=== PATIENT | male | born 1950 | race Caucasian/White ===

== ENCOUNTER → 2018-05-17 08:01 | Outpatient (CLI) | payer MEDICARE, OTHER, SELFPAY ==
[2018-05-17 09:25] LABS: BUN Creatinine Ratio 17.3 (6-22); Blood Urea Nitrogen 19 mg/dL (9-20); Calcium 8.9 mg/dL (8.4-10.2); Carbon Dioxide 28 mmol/L (22-32); Chloride 105 mmol/L (98-107); Cholesterol 164 mg/dL (140-199); Estimated Glomerular Filt Rate > 60.0 mL/min (>60); Glucose 91 mg/dL (80-110); HDL Cholesterol 41 mg/dL (40-60); HEMOLYSIS < 15 (0-50); LDL Cholesterol Calculated 104 mg/dL (<100); Potassium 4.4 mmol/L (3.4-5.1); Sodium 143 mmol/L (137-145); Triglycerides 96 mg/dL (35-150)
[2018-05-17 09:50] LABS: Prostate Specific Antigen Scrn 4.98 ng/mL (0.1-4.0)
[2018-05-21 14:45] LABS: PSA Free % 22 % (calc) (> 25); PSA, Total 5.4 ng/mL (< 4.1)
== END ==
PROVIDERS: PCP Student in an Organized Health Care Education/Training Program; Visit Provider Student in an Organized Health Care Education/Training Program
DX: I10 Essential (primary) hypertension (principal); R97.20 Elevated prostate specific antigen [PSA]; E78.00 Pure hypercholesterolemia, unspecified; E55.9 Vitamin D deficiency, unspecified
CPT/HCPCS: 36415; 80048; 80061; 82306; 84153; 84154; G0103

== ENCOUNTER → 2019-02-27 15:40 | Outpatient (CLI) | payer MEDICARE, OTHER, SELFPAY ==
--- NOTE | 2019-02-27 15:43 | DI.RAD.S_ITS ---
PROCEDURE: XR CHEST 2V INDICATIONS: cough for 2 weeks TECHNIQUE: 2 views of the chest were acquired. COMPARISON: [facility], , CHEST 2 VIEW, 03/22/2009, 14:03. FINDINGS: Surgical changes and devices: None. Lungs and pleura: No acute consolidation. Scattered subsegmental atelectasis and/or scarring. No pleural effusion. No pneumothorax. Mediastinum: Mediastinal contours are normal. Heart size is normal. Bones and chest wall: No suspicious bony abnormalities. Soft tissues appear unremarkable. IMPRESSION: No acute disease Dictated by: Rancho Desouza M.D. on 02/27/2019 at 16:26 Approved by: Rancho Desouza M.D. on 02/27/2019 at 16:27
== END ==
PROVIDERS: PCP Student in an Organized Health Care Education/Training Program; Visit Provider Hospitalist
DX: R05 Cough (principal)
CPT/HCPCS: 71046

== ENCOUNTER → 2019-07-16 11:22 | Outpatient (CLI) | payer MEDICARE, OTHER, SELFPAY ==
--- NOTE | 2019-07-16 11:24 | DI.RAD.S_ITS ---
PROCEDURE: XR HIP W PEL IF DONE LT 2V INDICATIONS: Left hip pain TECHNIQUE: 2 views of the hip were acquired. COMPARISON: None. FINDINGS: Bones: No fractures or dislocations. No suspicious bony lesions. The visualized pelvic ring appears intact. Mild left hip joint osteoarthritis, no trauma. Soft tissues: No suspicious soft tissue calcifications or masses. IMPRESSION: Mild left hip joint osteoarthritis without prior trauma found. Dictated by: Jack Heller M.D. on 07/16/2019 at 12:46 Approved by: Jack Heller M.D. on 07/16/2019 at 12:46
== END ==
PROVIDERS: PCP Student in an Organized Health Care Education/Training Program; Visit Provider Student in an Organized Health Care Education/Training Program
DX: M25.552 Pain in left hip (principal); M16.12 Unilateral primary osteoarthritis, left hip
CPT/HCPCS: 73502

== ENCOUNTER → 2020-09-16 11:05 | Outpatient (CLI) | payer MEDICARE, OTHER, SELFPAY ==
[2020-09-16 11:35] LABS: WBC Urine None Seen (0-5/HPF)
[2020-09-16 12:06] LABS: Appearance Urine UA CLEAR; Bilirubin Urine UA NEGATIVE (NEGATIVE); Color Urine UA YELLOW; Glucose Urine UA NEGATIVE (Negative); Ketones Urine UA NEGATIVE (NEGATIVE); Leukocyte Esterase Urine UA NEGATIVE (NEGATIVE); Nitrite Urine UA NEGATIVE (Negative); Occult Blood Urine UA TRACE-INTACT (Negative); Protein Urine UA NEGATIVE (Negative); Urobilinogen Urine UA 0.2 E.U./dL (0.2)
[2020-09-16 12:13] LABS: Add Manual Diff / Slide Review NO; Basophils Absolute Auto 0 /uL (0-100); Basophils Percent Auto 0.3 % (0-2); Eosinophils Absolute Auto 100 /uL (0-450); Eosinophils Percent Auto 1.2 % (2-4); Hematocrit 49.2 % (41-53); Hemoglobin 17.1 g/dL (13.5-17.5); Lymphocytes Absolute Auto 1600 /uL (1100-4500); Lymphocytes Percent Auto 16.7 % (25-40); Mean Corpuscular HGB Conc 34.7 % (30-36); Mean Corpuscular Volume 92.3 fL (80-100); Monocytes Absolute Auto 900 /uL (0-900); Monocytes Percent Auto 8.7 % (3-14); Neutrophils Absolute Auto 7200 /uL (1500-7000); Neutrophils Percent Auto 73.1 % (50-75); Platelet Count 165 X10^3/uL (150-400); Red Blood Cell Count 5.33 X10^6/uL (4.5-5.9); Red Cell Distribution Width 13.3 % (11.6-14.8); White Blood Cell Count 9.8 X10^3/uL (4.5-11.0)
[2020-09-16 12:18] LABS: Bacteria Urine Occasional (0-1); Culture Indicated Urine Cult Not Indicated; RBC Urine 0-1/HPF (0-5/HPF)
[2020-09-16 12:48] LABS: Alanine Aminotransferase 31 IU/L (<50); Albumin Globulin Ratio 1.4 (1.0-2.8); Alkaline Phosphatase 53 U/L (38-126); Aspartate Aminotransferase 24 IU/L (17-59); BUN Creatinine Ratio 18.6 (6-22); Bilirubin Total 0.8 mg/dL (0.2-1.3); Blood Urea Nitrogen 19 mg/dL (9-20); Calcium 9.6 mg/dL (8.4-10.2); Carbon Dioxide 27 mmol/L (22-32); Chloride 103 mmol/L (98-107); Estimated Glomerular Filt Rate > 60.0 mL/min (>60); Gamma Glutamyl Transpeptidase 36 U/L (15-73); Globulin 2.9 g/dL (1.7-4.1); Glucose 90 mg/dL (80-110); HEMOLYSIS < 15 (0-50); Lipase 108 U/L (23-300); Potassium 4.4 mmol/L (3.4-5.1); Sodium 139 mmol/L (137-145); Total Protein 6.9 g/dL (6.3-8.2)
[2020-09-16 13:19] LABS: Prostate Specific Antigen Scrn 4.56 ng/mL (0.1-4.0)
== END ==
PROVIDERS: PCP Student in an Organized Health Care Education/Training Program; Referring Provider Student in an Organized Health Care Education/Training Program; Visit Provider Student in an Organized Health Care Education/Training Program
DX: Z12.5 Encounter for screening for malignant neoplasm of prostate (principal); R10.31 Right lower quadrant pain
CPT/HCPCS: 36415; 80053; 81001; 82977; 83690; 85025; G0103

== ENCOUNTER → 2020-09-16 13:07 | Outpatient (CLI) | payer MEDICARE, OTHER, SELFPAY ==
--- NOTE | 2020-09-16 13:11 | DI.CT.S_ITS ---
PROCEDURE: CT ABDOMEN PELVIS WO CON INDICATIONS: RLQ abdominal pain TECHNIQUE: Noncontrast 5 mm thick sections acquired from the diaphragms to the symphysis. 5 mm coronal and sagittal reformats were then performed. For radiation dose reduction, the following was used: automated exposure control, adjustment of mA and/or kV according to patient size. COMPARISON: None. FINDINGS: Image quality: Excellent. ABDOMEN: Lung bases: Lung bases are clear. Heart size is normal. Mild coronary artery calcifications. Minimal pericardial effusion. Solid organs: Liver is normal in size. A benign-appearing hepatic cyst is noted. Gallbladder contains 2 gallstones. No gallbladder wall thickening identified. Pancreas is normal in contours. Spleen is normal in size. No adrenal nodules. Kidneys are normal in size, without hydronephrosis or nephrolithiasis. Peritoneum and bowel: Dilated fluid-filled appendix with inflammatory change in the adjacent fat consistent with acute appendicitis. No free air or free fluid or abscess cavity. Unenhanced bowel loops otherwise demonstrate normal wall thickness and caliber. No free fluid or air. Nodes and vessels: No retroperitoneal or mesenteric adenopathy by size criteria. Aorta and inferior vena cava are normal in caliber. Miscellaneous: No ventral hernias. PELVIS: Genitourinary: Bladder wall thickness is normal. Miscellaneous: No inguinal hernias or adenopathy. Bones: No suspicious bony lesions. No vertebral body compression fractures. IMPRESSION: 1. Acute appendicitis, likely nonruptured. 2. Enlarged prostate. 3. Small left inguinal hernia containing fat. Dictated by: Fernandez Hahn M.D. on 09/16/2020 at 13:22 Approved by: Fernandez Hahn M.D. on 09/16/2020 at 13:25
== END ==
PROVIDERS: PCP Student in an Organized Health Care Education/Training Program; Referring Provider Student in an Organized Health Care Education/Training Program; Visit Provider Student in an Organized Health Care Education/Training Program
DX: R10.31 Right lower quadrant pain (principal); K35.80 Unspecified acute appendicitis; N40.0 Benign prostatic hyperplasia without lower urinary tract symptoms; K40.30 Unilateral inguinal hernia, with obstruction, without gangrene, not specified as recurrent; Z12.5 Encounter for screening for malignant neoplasm of prostate
CPT/HCPCS: 36415; 74176; 80053; 81001; 82977; 83690; 85025; G0103

== ENCOUNTER 2020-09-16 22:03 | Inpatient (IN) | payer MEDICARE, OTHER, SELFPAY ==
[2020-09-16 22:11] VITALS: BP 200/102; PULSE 60; RESP 18; TEMP 36.8; O2SAT 99; BMI 32.1
[2020-09-16 22:30] VITALS: BP 195/124
[2020-09-16 22:31] VITALS: PULSE 88; O2SAT 97
[2020-09-16 23:00] VITALS: BP 170/105; PULSE 84; O2SAT 95
[2020-09-16 23:00] LABS: INR 1.1 (0.9-1.3); Prothrombin Time 12.4 SECONDS (10.1-12.7)
[2020-09-16 23:03] LABS: Alanine Aminotransferase 31 IU/L (<50); Albumin 4.3 g/dL (3.5-5.0); Albumin Globulin Ratio 1.3 (1.0-2.8); Alkaline Phosphatase 52 U/L (38-126); Aspartate Aminotransferase 27 IU/L (17-59); BUN Creatinine Ratio 23.1 (6-22); Bilirubin Total 0.6 mg/dL (0.2-1.3); Blood Urea Nitrogen 24 mg/dL (9-20); Calcium 9.3 mg/dL (8.4-10.2); Carbon Dioxide 24 mmol/L (22-32); Chloride 105 mmol/L (98-107); Estimated Glomerular Filt Rate > 60.0 mL/min (>60); Globulin 3.2 g/dL (1.7-4.1); Glucose 108 mg/dL (80-110); HEMOLYSIS 25 (0-50); Lipase 99 U/L (23-300); PTT Partial Thromboplastin Tim 34 SECONDS (26.4-36.2); Sodium 139 mmol/L (137-145); Total Protein 7.5 g/dL (6.3-8.2)
[2020-09-16 23:04] VITALS: BP 168/95; PULSE 86; O2SAT 95
[2020-09-16 23:07] LABS: Add Manual Diff / Slide Review NO; Basophils Absolute Auto 100 /uL (0-100); Basophils Percent Auto 0.9 % (0-2); Eosinophils Absolute Auto 200 /uL (0-450); Eosinophils Percent Auto 2.6 % (2-4); Hematocrit 48.2 % (41-53); Hemoglobin 16.8 g/dL (13.5-17.5); Lymphocytes Absolute Auto 2400 /uL (1100-4500); Lymphocytes Percent Auto 27.7 % (25-40); Mean Corpuscular HGB Conc 34.9 % (30-36); Mean Corpuscular Hemoglobin 32.1 PG (26-34); Monocytes Absolute Auto 800 /uL (0-900); Monocytes Percent Auto 9.4 % (3-14); Neutrophils Absolute Auto 5200 /uL (1500-7000); Neutrophils Percent Auto 59.4 % (50-75); Platelet Count 155 X10^3/uL (150-400); Red Blood Cell Count 5.24 X10^6/uL (4.5-5.9); Red Cell Distribution Width 13.2 % (11.6-14.8); White Blood Cell Count 8.7 X10^3/uL (4.5-11.0)
[2020-09-16 23:30] VITALS: BP 166/96; PULSE 59; O2SAT 95
[2020-09-17] VITALS (26 sets, daily range): BP systolic 93–165; BP diastolic 41–102; PULSE 56–94; RESP 12–20; TEMP 36.2–37; O2SAT 92–98; BMI 31.6
--- NOTE | 2020-09-17 | PATH_ITS ---
[facility] Accession Number: [id number] . 01 Material submitted: . appendix - APPENDIX . 02 Diagnosis: Appendix, Appendectomy: Acute appendicitis and serositis. [facility] 09/23/2020 0931 Local . 02 Electronically signed: . Yaritza Matthew MD, Pathologist NPI- [id number] . 01 Gross description: . The specimen is received in formalin, labeled appendix and consists of a 5.5 cm in length by 0.8 cm in diameter vermiform appendix with detached villarreal-yellow lobulated mesoappendix measuring 4.5 x 3.5 x 2.5 cm in aggregate. The serosa is pink-purple, focally disrupted with purulent exudate and fibrinous adhesions. Sectioning reveals a villarreal mucosa and a lumen measuring 0.3 cm in diameter. [employer] Attaching Machine Tender sections are submitted to include the margin (blue), bisected tip and central cross-sections in cassette A1. (EA:[id number]) /V 09/21/2020 1549 Local . 02 Pathologist provided ICD-10: K35.80 . 02 CPT . 786343 Performed at: 01 [facility] [address], [place], [place] [id number] MD Tariq Leavitt MD Phone: [phone] Performed at: 02 [facility] [address] [place], [place] [id number] MD Theresa Lemus MD Phone: [phone]
--- NOTE | 2020-09-17 00:05 | ED.ABDPAIN ---
HPI - Abdominal Pain General Chief Complaint: Abdominal Pain Stated Complaint: sent for apendicitis Time Seen by Provider: 09/16/20 23:23 Source: patient Mode of arrival: Ambulatory Limitations: no limitations History of Present Illness HPI narrative: This is a pleasant 70-year-old male who comes to the emergency department for concern for appendicitis. Patient had abdominal pain that started Sunday evening became quite severe into Sunday. On has been improving since then. Patient states he never had fevers. Denies any nausea, vomiting, no diarrhea constipation. He states he has been stooling regularly but no color changes. No urinary symptoms. Patient states he saw his primary care ordered labs as well as a CT scan. This was obtained on 09/16/2020. Patient was contacted about the results this evening and noted that it showed an appendicitis. Patient states his symptoms have actually been significantly better. He continues to be afebrile without any additional symptoms. He has been taking Tylenol regularly. He denies any other medical issues. He has had hernia repairs in the past. Denies any allergies to medications. Related Data Home Medications Medication Instructions Recorded Confirmed No Known Home Medications 09/17/20 09/17/20 Allergies Allergy/AdvReac Type Severity Reaction Status Date / Time No Known Drug Allergies Allergy Verified 09/16/20 10:51 Review of Systems Review of Systems ROS Unobtainable: All systems reviewed & are unremarkable except as noted in HPI and below Patient History Medical History (Updated 09/17/20 @ 01:40 by Kristan Gonsales DO) BPH (benign prostatic hyperplasia) (Unknown) Chickenpox Elevated PSA (Unknown) Erectile dysfunction (Unknown) Measles Surgical History History of dental surgery (Unknown) Hx of hernia repair (Unknown) Family History Father Heart disease Grandfather Heart disease Grandmother Heart disease Social History household members: spouse Smoking Status: Never smoker alcohol intake: never substance use type: does not use Smoking Status: Never smoker Exam Narrative Exam Narrative: GENERAL: Alert and oriented x three, well-nourished male in mild distress. HEENT: Head normocephalic, atraumatic, EOMI, pupils reactive, face symmetric, moist mucous membranes NECK: Supple, full range of motion CARDIOVASCULAR: Regular rate and rhythm without murmurs, rubs or gallops. RESPIRATORY: Breath sounds equal bilaterally, no wheezes rales or rhonchi. ABDOMEN: Soft, very mild right lower quadrant tenderness. Distended habitus. Normoactive bowel sounds all 4 quadrants. No guarding or rebound, rigidity, no mass. : No CVA tenderness EXTREMITIES: Normal range of motion, no clubbing or edema. Neurovascularly intact NEUROLOGICAL: Cranial nerves II through XII grossly intact. Moving all extremities SKIN: Warm, dry, no petechiae, no rashes or lesions. 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 Sigala, reviewed patient's history and CT. He states with his improvement of symptoms he would recommend repeat CT to evaluate for rupture. Time: 00:21 Consultation #2: Repeat CT imaging reviewed. No perforation on repeat imaging. Plan for Zosyn IV antibiotics. Dr. Sigala asks for patient to admit to surgery and will see this morning and discuss with patient about surgery vs. antibiotics. Time: 01:37 Vital Signs Vital signs: Vital Signs - 8 hr 09/16/20 22:11 09/16/20 22:30 09/16/20 22:31 Temperature 98.3 F Pulse Rate 60 88 Respiratory Rate 18 Blood Pressure 200/102 H 195/124 H Pulse Oximetry 99 97 09/16/20 23:00 09/16/20 23:04 09/16/20 23:30 Temperature Pulse Rate 84 86 59 L Respiratory Rate Blood Pressure 170/105 H 168/95 H 166/96 H Pulse Oximetry 95 95 95 09/17/20 00:00 09/17/20 00:51 09/17/20 01:00 Temperature Pulse Rate 91 H 84 Respiratory Rate Blood Pressure 152/89 H Pulse Oximetry 95 97 94 09/17/20 01:30 Temperature Pulse Rate 86 Respiratory Rate Blood Pressure Pulse Oximetry 95 MDM - Abdominal Pain Lab Data Attestation: I reviewed the patient's lab results. Result diagrams: 09/16/20 22:40 09/16/20 22:40 Labs: Lab Results 09/16/20 09/16/20 09/16/20 Range/Units 22:40 22:40 22:40 WBC 8.7 (4.5-11.0) X10^3/uL RBC 5.24 (4.5-5.9) X10^6/uL Hgb 16.8 (13.5-17.5) g/dL Hct 48.2 (41-53) % MCV 92.0 (80-100) fL MCH 32.1 (26-34) PG MCHC 34.9 (30-36) % RDW 13.2 (11.6-14.8) % Plt Count 155 (150-400) X10^3/uL Neut % (Auto) 59.4 (50-75) % Lymph % (Auto) 27.7 (25-40) % [place] % (Auto) 9.4 (3-14) % Eos % (Auto) 2.6 (2-4) % Baso % (Auto) 0.9 (0-2) % Neut # (Auto) 5200 (1190-1106) /uL Lymph # (Auto) 2400 (5173-9792) /uL [place] # (Auto) 800 (0-900) /uL Eos # (Auto) 200 (0-450) /uL Baso # (Auto) 100 (0-100) /uL PT 12.4 (10.1-12.7) SECONDS INR 1.1 (0.9-1.3) APTT 34 (26.4-36.2) SECONDS Sodium 139 (137-145) mmol/L Potassium 4.0 (3.4-5.1) mmol/L Chloride 105 (98-107) mmol/L Carbon Dioxide 24 (22-32) mmol/L BUN 24 H (9-20) mg/dL Creatinine 1.04 (0.66-1.25) mg/dL Estimated GFR > 60.0 (>60) mL/min BUN/Creatinine Ratio 23.1 H (6-22) Glucose 108 (80-110) mg/dL Calcium 9.3 (8.4-10.2) mg/dL Total Bilirubin 0.6 (0.2-1.3) mg/dL AST 27 (17-59) IU/L ALT 31 (<50) IU/L Alkaline Phosphatase 52 (38-126) U/L Total Protein 7.5 (6.3-8.2) g/dL Albumin 4.3 (3.5-5.0) g/dL Globulin 3.2 (1.7-4.1) g/dL Albumin/Globulin Ratio 1.3 (1.0-2.8) Lipase 99 (23-300) U/L SARS-CoV-2 (PCR) (Negative) 09/16/20 Range/Units 22:40 WBC (4.5-11.0) X10^3/uL RBC (4.5-5.9) X10^6/uL Hgb (13.5-17.5) g/dL Hct (41-53) % MCV (80-100) fL MCH (26-34) PG MCHC (30-36) % RDW (11.6-14.8) % Plt Count (150-400) X10^3/uL Neut % (Auto) (50-75) % Lymph % (Auto) (25-40) % [place] % (Auto) (3-14) % Eos % (Auto) (2-4) % Baso % (Auto) (0-2) % Neut # (Auto) (5751-1049) /uL Lymph # (Auto) (6549-1708) /uL [place] # (Auto) (0-900) /uL Eos # (Auto) (0-450) /uL Baso # (Auto) (0-100) /uL PT (10.1-12.7) SECONDS INR (0.9-1.3) APTT (26.4-36.2) SECONDS Sodium (137-145) mmol/L Potassium (3.4-5.1) mmol/L Chloride (98-107) mmol/L Carbon Dioxide (22-32) mmol/L BUN (9-20) mg/dL Creatinine (0.66-1.25) mg/dL Estimated GFR (>60) mL/min BUN/Creatinine Ratio (6-22) Glucose (80-110) mg/dL Calcium (8.4-10.2) mg/dL Total Bilirubin (0.2-1.3) mg/dL AST (17-59) IU/L ALT (<50) IU/L Alkaline Phosphatase (38-126) U/L Total Protein (6.3-8.2) g/dL Albumin (3.5-5.0) g/dL Globulin (1.7-4.1) g/dL Albumin/Globulin Ratio (1.0-2.8) Lipase (23-300) U/L SARS-CoV-2 (PCR) Negative (Negative) Imaging Data CT scan - abdomen/pelvis: Radiologist's Impression: [address] [id number] Scan ReportSigned Patient: Franky Maharaj SMR#: [id number]: 1950Acct:[id number]/Sex: 70 / MDate of Service: 09/16/20Loc: CTAccession Number: [id number] Procedure: CT abdomen pelvis wo con Ordering Provider: Franky Liu MD PROCEDURE: CT ABDOMEN PELVIS WO CON INDICATIONS: RLQ abdominal pain TECHNIQUE: Noncontrast 5 mm thick sections acquired from the diaphragms to the symphysis. 5 mm coronal and sagittal reformats were then performed. For radiation dose reduction, the following was used: automated exposure control, adjustment of mA and/or kV according to patient size. COMPARISON: None. FINDINGS: Image quality: Excellent. ABDOMEN: Lung bases: Lung bases are clear. Heart size is normal. Mild coronary artery calcifications. Minimal pericardial effusion. Solid organs: Liver is normal in size. A benign-appearing hepatic cyst is noted. Gallbladder contains 2 gallstones. No gallbladder wall thickening identified. Pancreas is normal in contours. Spleen is normal in size. No adrenal nodules. Kidneys are normal in size, without hydronephrosis or nephrolithiasis. Peritoneum and bowel: Dilated fluid-filled appendix with inflammatory change in the adjacent fat consistent with acute appendicitis. No free air or free fluid or abscess cavity. Unenhanced bowel loops otherwise demonstrate normal wall thickness and caliber. No free fluid or air. Nodes and vessels: No retroperitoneal or mesenteric adenopathy by size criteria. Aorta and inferior vena cava are normal in caliber. Miscellaneous: No ventral hernias. PELVIS: Genitourinary: Bladder wall thickness is normal. Miscellaneous: No inguinal hernias or adenopathy. Bones: No suspicious bony lesions. No vertebral body compression fractures. IMPRESSION: 1. Acute appendicitis, likely nonruptured. 2. Enlarged prostate. 3. Small left inguinal hernia containing fat. Dictated by: Fernandez Hahn M.D. on 09/16/2020 at 13:22 Approved by: Fernandez Hahn M.D. on 09/16/2020 at 13:25 MDM Narrative Medical decision making narrative: 70-year-old male with right lower quadrant pain that was quite severe, labs are reassuring, patient is imaging from earlier today ordered as outpatient was positive for appendicitis as well as a small left inguinal hernia that had a small amount of fat. Patient states his symptoms have actually improved. Discussed with General surgery and they request CT to be repeated as there is potential for a ruptured appy. This was repeated does not show any rupture. Patient continues to state that he feels significantly better. Patient was admitted for IV antibiotics and evaluation this morning by Dr. Sigala for decision to either perform surgery or treat with antibiotics after evaluation. Patient was quite hypertensive initially but improved significantly in the department. Discharge Plan Departure Patient Disposition: Admitted as Observation Clinical Impression: Hernia, inguinal, left Appendicitis Qualifiers: Appendicitis type: acute appendicitis Appendicitis gangrene presence: without gangrene Appendicitis perforation presence: without perforation Appendicitis abscess presence: without abscess Admit Date/Time: 09/17/20 01:49 Admit Provider: Robert Sigala
--- NOTE | 2020-09-17 00:20 | DI.CT.S_ITS ---
PROCEDURE: CT ABDOMEN PELVIS W CON INDICATIONS: abdominal pain,appendictis TECHNIQUE: After the administration of intravenous contrast, 5 mm thick sections acquired from the diaphragm to the symphysis. 5 mm coronal and sagittal reformats were acquired. For radiation dose reduction, the following was used: automated exposure control, adjustment of mA and/or kV according to patient size. COMPARISON: [facility], CT, CT ABDOMEN PELVIS WO CON, 09/16/2020, 13:14. FINDINGS: Image quality: Excellent. ABDOMEN: Lung bases: Right lower lobe pulmonary nodule measuring 0.6 cm, (3/5). No pleural effusion. Minimal atelectasis in the lingula. Heart size is normal. Mild pericardial fluid. Question of small hiatal hernia. Solid organs: Liver is normal in size. Well-circumscribed benign cyst in the right lobe of the liver. Gallbladder is not distended. There are small layering gallstones. Biliary system is non dilated. Pancreas enhances normally. Spleen is normal in size and enhancement. No adrenal nodules. Kidneys demonstrate normal size and enhancement, without hydronephrosis. Peritoneum and bowel: No small bowel obstruction. A few scattered colonic diverticuli. No pneumoperitoneum. No ascites. The appendix is dilated measuring 1.1 cm, (4/39). There is moderate fat stranding surrounding the appendix. No appendiculolith is seen. No periappendiceal free air. No fluid collection. No significant interval change of the appendix is appreciated compared to CT yesterday afternoon. Nodes and vessels: No retroperitoneal or mesenteric adenopathy by size criteria. Aorta and inferior vena cava are normal in size. Moderate calcified plaque. Miscellaneous: Tiny fat containing periumbilical hernia. PELVIS: Genitourinary: Bladder wall thickness is normal. Prostatomegaly. Miscellaneous: Question of fat containing left inguinal hernia. No adenopathy. Bones: No suspicious bony lesions. No vertebral body compression fractures. IMPRESSION: 1. Acute appendicitis. No fluid collection. Overall findings similar to recent CT. 2. No bowel obstruction. 3. Right lower lobe pulmonary nodule measuring 0.6 cm. -Recommend follow-up CT of the chest in 6-12 months depending on patient's risk factors. 4. Prostatomegaly. Minor discrepancy with the overnight preliminary interpretation. -Small pulmonary nodule noted. Comment: Findings were discussed with Odalis Smith CNA at the time of dictation. Dictated by: Alexander Samson M.D. on 09/17/2020 at 8:31 Approved by: Alexander Samson M.D. on 09/17/2020 at 8:45
[2020-09-17] MEDS: SODIUM CHLORIDE 0.9% 1,000 ML 150 ML IV (01:12)
[2020-09-17] MEDS: PIPERACILLIN-TAZO 3.375 GM/50 ML FROZ.PIGGY IV ×4 (01:51→18:58)
[2020-09-17 02:50] LABS: COVID19 - ADMIT (NP swab/PCR) Negative (Negative)
--- NOTE | 2020-09-17 07:32 | PM.HP.1 ---
History of Present Illness History of Present Illness Date Patient Seen: 09/17/20 Time Patient Seen: 07:33 Chief complaint: sent for apendicitis Narrative: 70-year-old male history of obesity admitted for acute appendicitis. He is having some vague abdominal pain over the last 2-3 days he underwent a CT abdomen pelvis yesterday which demonstrates acute appendicitis was no free fluid or abscess. At arrival afebrile vital signs within normal limits, WBC 9, hematocrit 48 creatinine 1.04. Prior open bilateral inguinal hernia otherwise no other abdominal surgery. Patient History Medical History (Updated 09/17/20 @ 01:40 by Kristan Gonsales DO) BPH (benign prostatic hyperplasia) (Unknown) Chickenpox Elevated PSA (Unknown) Erectile dysfunction (Unknown) Measles Surgical History History of dental surgery (Unknown) Hx of hernia repair (Unknown) Family & Social History Family History Father Heart disease Grandfather Heart disease Grandmother Heart disease Social History: household members spouse Prior Living Arrangements House Safety & Behavioral: Feels Safe in Current Yes Environment Been Physically Hurt or No Threatened By a Person Suicidal Ideation Description None Tobacco & Substance use: Smoking Status Never smoker alcohol intake never Substance Use Type does not use Meds Home Medications and Allergies Home Medications Medication Instructions Recorded Confirmed Type No Known Home Medications 09/17/20 09/17/20 History Allergies Allergy/AdvReac Type Severity Reaction Status Date / Time No Known Drug Allergies Allergy Verified 09/16/20 10:51 Review of Systems Review of Systems ROS: Yes All systems reviewed with the patient and are negative except as otherwise documented Exam Vital Signs (past 8 hours): - 09/17/20 00:00 09/17/20 00:51 09/17/20 01:00 Temperature Pulse Rate 91 H 84 Respiratory Rate Blood Pressure 152/89 H Pulse Oximetry 95 97 94 09/17/20 01:30 09/17/20 01:54 09/17/20 02:10 Temperature 97.8 F Pulse Rate 86 81 58 L Respiratory Rate 16 Blood Pressure 162/88 H 142/90 H Pulse Oximetry 95 96 09/17/20 05:23 Temperature 97.8 F Pulse Rate 58 L Respiratory Rate 16 Blood Pressure 142/90 H Pulse Oximetry 97 Oxygen Delivery Method Room Air Narrative Exam Narrative: General-no acute distress, adult male HEENT-moist mucous membranes, no scleral icterus Neck-supple, no lymphadenopathy Chest- non labored respirations, clear to auscultation bilaterally Cardiac-regular rate no peripheral edema Abdomen-focal peritonitis right lower quadrant Extremities-warm, well perfused Neurological-alert and oriented, no focal deficits Objective Labs Result Diagrams: 09/16/20 22:40 09/16/20 22:40 Labs: Laboratory Results - last 24 hr 09/16/20 09/16/20 09/16/20 22:40 22:40 22:40 WBC 8.7 RBC 5.24 Hgb 16.8 Hct 48.2 MCV 92.0 MCH 32.1 MCHC 34.9 RDW 13.2 Plt Count 155 Neut % (Auto) 59.4 Lymph % (Auto) 27.7 [place] % (Auto) 9.4 Eos % (Auto) 2.6 Baso % (Auto) 0.9 Neut # (Auto) 5200 Lymph # (Auto) 2400 [place] # (Auto) 800 Eos # (Auto) 200 Baso # (Auto) 100 PT 12.4 INR 1.1 APTT 34 Sodium 139 Potassium 4.0 Chloride 105 Carbon Dioxide 24 BUN 24 H Creatinine 1.04 Estimated GFR > 60.0 BUN/Creatinine Ratio 23.1 H Glucose 108 Calcium 9.3 Total Bilirubin 0.6 AST 27 ALT 31 Alkaline Phosphatase 52 Total Protein 7.5 Albumin 4.3 Globulin 3.2 Albumin/Globulin Ratio 1.3 Lipase 99 SARS-CoV-2 (PCR) 09/16/20 22:40 WBC RBC Hgb Hct MCV MCH MCHC RDW Plt Count Neut % (Auto) Lymph % (Auto) [place] % (Auto) Eos % (Auto) Baso % (Auto) Neut # (Auto) Lymph # (Auto) [place] # (Auto) Eos # (Auto) Baso # (Auto) PT INR APTT Sodium Potassium Chloride Carbon Dioxide BUN Creatinine Estimated GFR BUN/Creatinine Ratio Glucose Calcium Total Bilirubin AST ALT Alkaline Phosphatase Total Protein Albumin Globulin Albumin/Globulin Ratio Lipase SARS-CoV-2 (PCR) Negative Assessment & Plan Assessment and plan (1) Appendicitis: Qualifiers: Appendicitis abscess presence: without abscess Appendicitis gangrene presence: without gangrene Appendicitis perforation presence: without perforation Appendicitis type: acute appendicitis Status: Acute Assessment & Plan narrative: 70-year-old male with acute appendicitis. I reviewed his CT abdomen pelvis demonstrates acute appendicitis there is no abscess or significant free fluid. Suspect he has relatively early non perforated appendicitis. We discussed both conservative management with antibiotics and surgical intervention. I recommended that we proceed with a laparoscopic appendectomy. Technical details of the procedure were discussed with patient. Operative risks including bleeding, infection, damage to surrounding structures, hernia formation, were discussed. His questions have been answered he is in agreement with this plan. Quality VTE Deep Vein Thrombosis/Pulmonary Embolism Present on Admission: No
[2020-09-17] MEDS: LACTATED RINGERS 1,000 ML 42 ML IV ×2 (08:14→09:43)
[2020-09-17] MEDS: ACETAMINOPHEN 325 MG TABLET 975 MG PO (08:26)
--- NOTE | 2020-09-17 08:46 | SUR.OPER ---
Supine on padded OR bed, head on pillow, arm padded and tucked at side, legs uncrossed, safety belt at thigh, tape over blanket over lower legs .
[2020-09-17] MEDS: BUPIVACAINE 0.25% (PF) VIAL 30 ML INJ (08:56)
--- NOTE | 2020-09-17 09:41 | P.OP_ITS ---
Operative Date/Time/Diagnoses Date of procedure: 09/17/20 Time of procedure: 09:41 Pre-op diagnosis: Acute appendicitis Post-op diagnosis: other (Perforated appendicitis) Procedure & Clinicians Procedure: Laparoscopic appendectomy Same procedure as scheduled: Yes Indications: 70-year-old male several days of abdominal pain CT demonstrates ac vladimir appendicitis without abscess or free fluid Surgeon: Robert Sigala Anesthesia Type: General Operative Notes Findings: Tip of the appendix is necrotic with associated abscess Estimated Blood Loss (mL): 20 Procedure in detail: Patient was brought to the operating room placed supine on the table. Bilateral lower extremity compression devices were applied. Anesthesia was induced and they intubated with an endotracheal tube. They received 3.375 g of Zosyn prior to skin incision. The left arm was tucked and appropriately padded. They were prepped and draped in sterile fashion. Time-out was performed. An infraumbilical incision was made the umbilical stalk was grasped and elevated and incision was made and the abdomen was entered atraumatically. A 12 mm balloon trocar was then placed through the incision and pneumoperitoneum of 14 mm Hg was established. The scope was then inserted and the abdomen inspected, there was no evidence of injury upon entry. Two 5 mm ports were placed under direct visualization, one in the left lower quadrant and second in the lower midline. A thorough laparoscopic evaluation was performed inspecting all four quadrants. The patient was then tilted right side up. The small bowel was then swept to the upper aspect of the abdomen. The tenie were followed to the base of the cecum where the appendix was identified. The appendix had healthy base but the tip of the appendix was with in an abscess cavity of approximately 2-3 cm. Once the abscess cavity was debrided the tip of the appendix was visualized and the necrotic. The mesentery to the appendix was divided using the LigaSure. The appendix was amputated flush at its base with a staple load blue. The abdomen was copiously irrigated with sterile saline. A 19 [place] Jesus drain was placed into the right lower quadrant and brought out through the left side of the abdomen. The specimen was retrieved using a endoscopic retrieval bad through the 10 mm infra-umbilical port. The right paracolic gutter and the pouch of Damion were irrigated The 5 mm ports were then removed under direct visualization. The umbilical fascial incision was closed with 0 Vicryl in a figure-eight fashion. The skin wounds were irrigated and closed with 4-0 Monocryl followed by the application of Dermabond. Sponge instrument count at the end of the operation was correct. The patient tolerated procedure well was extubated and transferred to the postoperative care unit in stable condition. Post-operative Condition: stable Disposition: Acute Care
[2020-09-17] MEDS: OXYCODONE IR 5 MG TABLET PO (10:37)
--- NOTE | 2020-09-17 11:26 | CM.DANOTE ---
Discharge Planning/Care Management DCP: assessment: case received, EMR reviewed, discussed in Team Rounds. Pt is a 70 year old male who admitted early this morning to care of [facility]: Dr. Danish Sigala PCP: Franky Liu Payer: Medicare and [facility] Pt dx with appendicitis and was taken to surgery this morning for treatment of same. Surgery: Laproscopic appendecomy with post op dx of perforated appendicitis. Admission status: in review per UR TERRI Potter. Will be checking in with pt either later today or tomorrow to follow for any d/c needs that may arise. CM Discharge Assessment Start: 09/17/20 11:25 Freq: Status: Active Protocol: Document 09/17/20 11:26 ITV (Rec: 09/17/20 11:26 ITV [id number]) Discharge Planning Assessment Advance Directives? No History Provided By Medical Record Prior Living Arrangements House Household Members spouse Is patient alert and oriented? Yes
[2020-09-17] MEDS: LACTATED RINGERS 1,000 ML 120 ML IV (11:30)
[2020-09-17] MEDS: ACETAMINOPHEN 325 MG TABLET 650 MG PO ×2 (12:45→17:47)
[2020-09-17] MEDS: KETOROLAC 30 MG/ML VIAL IV ×2 (12:47→17:48)
--- NOTE | 2020-09-17 16:13 | PC.NURSE ---
Pt A&OX3, this a.m. denies complaints. Transported to OR at 0820 a.m. Returned to room 208 at 1100. VSS,afebrile. LR at 125ml. Tolerating clear liquids w/o nausea /vomitting. Voiding small amount. Denies abdominal pain, denies passing gas. Abdominal slightly tender, hypoactive BS. Jesus drain with 25cc serosanguineous output. Lap sites ANGELICA, CDI.
--- NOTE | 2020-09-17 19:01 | PC.NURSE ---
Addendum entered by Jennie Rodríguez R.N. 09/17/20 23:12: Pt states abdominal discomfort improving. States is voiding often small amounts but is optimistic will be able to entirely empty bladder. Informed pt will need to resume iv fluids in the near future as ordered by . Informed pt catheter is ordered by surgeon youth probation officer if pt should change mind and become more uncomfortable. Pt verbalizes understanding. Addendum entered by Jennie Rodríguez R.N. 09/17/20 22:40: Pt requests to have iv fluids stopped and disconnected so can have freedom to move in and out of bathroom to toilet from recliner. Pt is steady on feet. IV fluids stopped per pt request. Flomax administered as per Dr. Ramirez. Addendum entered by Jennie Rodríguez R.N. 09/17/20 21:43: Pt remains up in recliner but reports to this teletypewriter operator, not doing good. States is up to bathroom to void with greater frequency, every 15 minutes. States urgency and frequency and very little output. Pt was returned to bed and bladder scanned for 607 cc's. Discussion with pt re options for treating this situation. Discussion with pt re placing catheter to drain bladder. Pt further states this inability to empty bladder has happened on several other occasions and resolves on its own and pt prefers this route. Phone call to Dr. Ramirez to discuss. Order for nunez catheter obtained and MD aware pt currently declines this but may change mind as time progresses. Orders also per Dr. Ramirez for flomax now. Pt informed. Original Note: Pt requests assistance to toilet frequently in bathroom. Denies any urinary difficulty as baseline. Voiding small amounts clear, yellow urine frequently. Bladder scanned for 192 cc's. Pt denies passage of flatus. Abdomen is distended with hypoactive bowel tones. Clear liquids without nausea. New iv site established as pt has firmness at right forearm iv site as well as pain with toradol iv push. Jesus drain compressed and draining. BL calf scd's in place when in bed. Up to recliner for change in position. Denies pain to abdomen. Dressing to Jesus drain site left abdomen replaced with t-sponge and silk tape.
[2020-09-17] MEDS: TAMSULOSIN 0.4 MG CAPSULE PO (22:10)
[2020-09-18] VITALS (11 sets, daily range): BP systolic 120–144; BP diastolic 70–98; PULSE 56–87; RESP 16–20; TEMP 36.6–36.9; O2SAT 94–98
[2020-09-18] MEDS: ACETAMINOPHEN 325 MG TABLET 650 MG PO ×5 (00:01→23:43)
[2020-09-18] MEDS: KETOROLAC 30 MG/ML VIAL IV ×5 (00:01→23:42)
[2020-09-18] MEDS: PIPERACILLIN-TAZO 3.375 GM/50 ML FROZ.PIGGY IV ×4 (01:53→20:12)
[2020-09-18] MEDS: TAMSULOSIN 0.4 MG CAPSULE PO (08:11)
[2020-09-18] MEDS: LACTATED RINGERS 1,000 ML 120 ML IV (11:26)
--- NOTE | 2020-09-18 12:00 | PM.PNPO.1 ---
Subjective Subjective Date Patient Seen: 09/18/20 Time Patient Seen: 12:00 Interval history: The patient's pain is controlled. He has had no flatus or bowel movement. He took about half of the breakfast offered him. No vomiting. He was unable to void and a Galaviz was ultimately placed. Exam Vital Signs (past 8 hours): - 09/18/20 08:00 09/18/20 08:15 Temperature 97.8 F Pulse Rate 77 Respiratory Rate 16 Blood Pressure 140/74 Pulse Oximetry 95 95 Oxygen Delivery Method Room Air Oxygen Flow Rate 0 Narrative Exam Narrative: Cooperative in no distress. Lungs clear. Fair effort. Breath sounds heard into the bases. Heart regular rate and rhythm without murmur gallop. Abdomen looks distended but is soft. No cellulitis. Wounds intact. Drainage is serosanguineous. Not cloudy.(patient states that his present appearance is his normal size but he looks much larger than he should be.) Objective Labs Result Diagrams: 09/16/20 22:40 09/16/20 22:40 [facility] Medical History (Updated 09/17/20 @ 01:40 by Kristan Gonsales DO) BPH (benign prostatic hyperplasia) (Unknown) Chickenpox Elevated PSA (Unknown) Erectile dysfunction (Unknown) Measles Surgical History History of dental surgery (Unknown) Hx of hernia repair (Unknown) Family History Father Heart disease Grandfather Heart disease Grandmother Heart disease Social History household members: spouse Smoking Status: Never smoker alcohol intake: never substance use type: does not use Assessment & Plan Post-op Postoperative Procedures: Procedures Operation Date: 09/17/20 08:45 Actual Procedures Side Surgeon p Laparoscopic Appendectomy Not Applicable Robert Sigala MD Postoperative day: 1 Postoperative status narrative: Patient with a ruptured appendix with acute urinary retention. He was unable to void and a Galaviz was ultimately placed. Review of his CT scan shows that he has a very large prostate projecting into his urinary bladder. Question was raised by the patient regarding the presence of a recurrent left inguinal hernia. CT scan reviewed. There may be fat within a recurring hernia but I would be hesitant based on the CT scan unless physical exam demonstrated a recurrence because sometimes the appearance after hernia repair can be misleading. I did not examine him today for recurrence hernia. This can be done as an outpatient. Postoperative plan narrative: Will not advance his diet. Ordered a suppository and stool softeners. Advised the patient not to take everything brought to him but to sip. I would like to see some return of bowel function before aggressively proceeding to feed him. Will continue his IV antibiotics due to the perforation. Will continue Flomax due to the enlarged prostate. Patient did have nocturia 3 or 4 times a night prior to the operation so he clearly is having symptoms of prosthetic enlargement. Will leave the Galaviz in another day or 2 and try to remove it after he has been on Flomax. Labs have been ordered for the morning. Changed his IV fluid to contain glucose. Quality VTE Deep Vein Thrombosis/Pulmonary Embolism Present on Admission: No
[2020-09-18] MEDS: DOCUSATE 100 MG CAPSULE PO (12:16)
[2020-09-18] MEDS: DEXTROSE 5%-LACTATED RINGERS 1,000 ML 100 ML IV ×2 (12:17→23:41)
[2020-09-18] MEDS: ENOXAPARIN 40 MG/0.4 ML SYRINGE SUBCUT (12:18)
[2020-09-18] MEDS: BISACODYL 10 MG SUPP PR (14:01)
--- NOTE | 2020-09-18 20:37 | PC.NURSE ---
pt ambulated in hallways multiple times. pt had 2 very small bowel movements. bernadine drain had serosang fluid. minimal pain, controlled with tylenol and toradol. pt tolerated clear liquid diet. nunez patent. IVF.
[2020-09-19] VITALS (14 sets, daily range): BP systolic 130–154; BP diastolic 66–109; PULSE 59–76; RESP 16–20; TEMP 36.4–36.7; O2SAT 96–99
[2020-09-19] MEDS: PIPERACILLIN-TAZO 3.375 GM/50 ML FROZ.PIGGY IV ×4 (01:25→19:27)
[2020-09-19] MEDS: KETOROLAC 30 MG/ML VIAL IV ×3 (05:20→18:07)
[2020-09-19] MEDS: ACETAMINOPHEN 325 MG TABLET 650 MG PO ×3 (05:20→18:08)
[2020-09-19 05:34] LABS: Add Manual Diff / Slide Review NO; Basophils Absolute Auto 100 /uL (0-100); Basophils Percent Auto 0.9 % (0-2); Eosinophils Absolute Auto 100 /uL (0-450); Eosinophils Percent Auto 1.2 % (2-4); Hematocrit 44.5 % (41-53); Hemoglobin 14.9 g/dL (13.5-17.5); Lymphocytes Absolute Auto 1800 /uL (1100-4500); Lymphocytes Percent Auto 21.2 % (25-40); Mean Corpuscular HGB Conc 33.5 % (30-36); Mean Corpuscular Hemoglobin 31.2 PG (26-34); Mean Corpuscular Volume 93.1 fL (80-100); Monocytes Absolute Auto 700 /uL (0-900); Monocytes Percent Auto 8.7 % (3-14); Neutrophils Absolute Auto 5800 /uL (1500-7000); Platelet Count 142 X10^3/uL (150-400); Red Blood Cell Count 4.78 X10^6/uL (4.5-5.9); Red Cell Distribution Width 13.3 % (11.6-14.8); White Blood Cell Count 8.6 X10^3/uL (4.5-11.0)
[2020-09-19 05:45] LABS: Alanine Aminotransferase 25 IU/L (<50); Albumin 3.4 g/dL (3.5-5.0); Albumin Globulin Ratio 1.3 (1.0-2.8); Alkaline Phosphatase 41 U/L (38-126); Aspartate Aminotransferase 34 IU/L (17-59); BUN Creatinine Ratio 16.2 (6-22); Bilirubin Total 0.5 mg/dL (0.2-1.3); Blood Urea Nitrogen 17 mg/dL (9-20); Calcium 8.3 mg/dL (8.4-10.2); Carbon Dioxide 27 mmol/L (22-32); Chloride 109 mmol/L (98-107); Estimated Glomerular Filt Rate > 60.0 mL/min (>60); Globulin 2.7 g/dL (1.7-4.1); Glucose 107 mg/dL (80-110); HEMOLYSIS < 15 (0-50); Magnesium 2.2 mg/dL (1.6-2.3); Potassium 4.1 mmol/L (3.4-5.1); Sodium 140 mmol/L (137-145); Total Protein 6.1 g/dL (6.3-8.2)
[2020-09-19] MEDS: TAMSULOSIN 0.4 MG CAPSULE PO (08:28)
[2020-09-19] MEDS: ENOXAPARIN 40 MG/0.4 ML SYRINGE SUBCUT (08:29)
--- NOTE | 2020-09-19 09:36 | P.PN_ITS ---
Subjective Subjective Date Patient Seen: 09/19/20 Time Patient Seen: 09:37 Interval history: Passing small amounts of gas and stool. Denies nausea. Exam Vital Signs (past 8 hours): - 09/19/20 04:00 09/19/20 05:30 09/19/20 08:00 Temperature 97.6 F Pulse Rate 66 Respiratory Rate 16 Blood Pressure 138/67 Pulse Oximetry 96 98 96 09/19/20 09:00 Temperature 98.1 F Pulse Rate 59 L Respiratory Rate 18 Blood Pressure 131/75 Pulse Oximetry 96 Oxygen Delivery Method Room Air Oxygen Flow Rate 0 Narrative Exam Narrative: GENERAL: Alert, oriented, comfortable. Appears stated age. Answers questions promptly and appropriately. Vital signs noted. HENT: Normocephalic, atraumatic. Hearing intact. EYES: Conjunctiva pink, sclera white, no periorbital swelling. CARDIOVASCULAR: Slight bradycardia at 59. No pedal edema. RESPIRATORY: Non-tachypneic, breathing comfortably on room air. GASTROINTESTINAL: Abdomen soft, mildly distended, incisions c/d/i; appropriately TTP for post op; SONIA drain with serosanguinous output; removed during exam GENITALURINARY: Galaviz in place with clear yellow urine MUSCULOSKELETAL: Equal tone and mass bilaterally. SKIN: Warm, dry, soft, appropriate color for ethnicity. No other lesions, rashes, or wounds. NEURO: Alert and Oriented X 3. No gross sensory deficits, or apparent cognitive abnormalities PSYCH: Appropriate affect and mood. Objective Labs Result Diagrams: 09/19/20 05:16 09/19/20 05:16 Labs: Laboratory Results - last 24 hr 09/19/20 09/19/20 05:16 05:16 WBC 8.6 RBC 4.78 Hgb 14.9 Hct 44.5 MCV 93.1 MCH 31.2 MCHC 33.5 RDW 13.3 Plt Count 142 L Neut % (Auto) 68.0 Lymph % (Auto) 21.2 L [place] % (Auto) 8.7 Eos % (Auto) 1.2 L Baso % (Auto) 0.9 Neut # (Auto) 5800 Lymph # (Auto) 1800 [place] # (Auto) 700 Eos # (Auto) 100 Baso # (Auto) 100 Sodium 140 Potassium 4.1 Chloride 109 H Carbon Dioxide 27 BUN 17 Creatinine 1.05 Estimated GFR > 60.0 BUN/Creatinine Ratio 16.2 Glucose 107 Calcium 8.3 L Magnesium 2.2 Total Bilirubin 0.5 AST 34 ALT 25 Alkaline Phosphatase 41 Total Protein 6.1 L Albumin 3.4 L Globulin 2.7 Albumin/Globulin Ratio 1.3 [facility] Medical History (Updated 09/19/20 @ 09:43 by Kati Castro MD) BPH (benign prostatic hyperplasia) (Unknown) Chickenpox Elevated PSA (Unknown) Erectile dysfunction (Unknown) Measles Surgical History (Updated 09/19/20 @ 09:43 by Kati Castro MD) History of dental surgery (Unknown) Hx of hernia repair (Unknown) Family History Father Heart disease Grandfather Heart disease Grandmother Heart disease Social History household members: spouse Smoking Status: Never smoker alcohol intake: never substance use type: does not use Assessment & Plan Assessment and plan (1) S/P appendectomy: Status: Acute (2) BPH (benign prostatic hyperplasia): Status: Chronic (3) Urine retention: Status: Acute Assessment & Plan narrative: This is a 70-year-old man who is postop day 2 from laparoscopic appendectomy, with finding of intra-abdominal abscess. Drain was placed, patient has had slow return of bowel function, and some urinary retention. Galaviz was placed yesterday morning. He is tolerating clear liquids, and has passed a small amount of gas and stool. We will add more bowel regimen. We will advance him to full liquids, continue his antibiotics for today, and remove his drain. If he is tolerating adequate p.o., and passing things through, we may remove his Galaviz and sent him home tomorrow. COVID-19 COVID-19 status: Negative Result date/Date tested (Pos, Neg/Pending): 09/17/20 Time Spent With Patient Time with patient: 25 - 35 minutes Quality VTE Deep Vein Thrombosis/Pulmonary Embolism Present on Admission: No
[2020-09-19] MEDS: DOCUSATE 100 MG CAPSULE PO (11:02)
--- NOTE | 2020-09-19 13:50 | CM.DPC ---
DCP: continued: met with pt and his . Introduced self and role. Pt says he is hopeful he will be able to d/c tomorrow as per his discussion with Dr. Castro today. His nunez catheter is still in place and will be removed tomorrow to see if Flomax has helped resolve the urinary retention. His diet is slowly progressing and he and his Piedad both say they were just wondering what his diet should be as he recovers for this surgery. Explained the surgeon would likely have advice on this and that a meeting with the clinical clinical data manager might be helpful. Both were very enthused about this idea and so agreed to leave a message for the clinical data manager team re potential consult if the surgical team agreed. P: home when stable for same. Possibly tomorrow. Transport per spouse Piedad.
[2020-09-20] VITALS (8 sets, daily range): BP systolic 145–159; BP diastolic 67–98; PULSE 62–95; RESP 16–18; TEMP 36.2–36.9; O2SAT 95–99
[2020-09-20] MEDS: PIPERACILLIN-TAZO 3.375 GM/50 ML FROZ.PIGGY IV ×2 (01:28→07:06)
[2020-09-20] MEDS: ACETAMINOPHEN 325 MG TABLET 650 MG PO (05:51)
[2020-09-20] MEDS: KETOROLAC 30 MG/ML VIAL IV (05:52)
[2020-09-20 06:26] LABS: Add Manual Diff / Slide Review NO; Basophils Absolute Auto 0 /uL (0-100); Basophils Percent Auto 0.6 % (0-2); Eosinophils Absolute Auto 200 /uL (0-450); Eosinophils Percent Auto 3.3 % (2-4); Hematocrit 48.6 % (41-53); Hemoglobin 16.4 g/dL (13.5-17.5); Lymphocytes Absolute Auto 1500 /uL (1100-4500); Lymphocytes Percent Auto 20.2 % (25-40); Mean Corpuscular HGB Conc 33.7 % (30-36); Monocytes Absolute Auto 600 /uL (0-900); Monocytes Percent Auto 8.4 % (3-14); Neutrophils Absolute Auto 5100 /uL (1500-7000); Neutrophils Percent Auto 67.5 % (50-75); Platelet Count 87 X10^3/uL (150-400); Red Blood Cell Count 5.29 X10^6/uL (4.5-5.9); Red Cell Distribution Width 13.2 % (11.6-14.8); White Blood Cell Count 7.6 X10^3/uL (4.5-11.0)
[2020-09-20 06:31] LABS: BUN Creatinine Ratio 13.8 (6-22); Blood Urea Nitrogen 12 mg/dL (9-20); Calcium 8.7 mg/dL (8.4-10.2); Carbon Dioxide 20 mmol/L (22-32); Chloride 109 mmol/L (98-107); Estimated Glomerular Filt Rate > 60.0 mL/min (>60); Glucose 92 mg/dL (80-110); Magnesium 2.2 mg/dL (1.6-2.3); Sodium 137 mmol/L (137-145)
[2020-09-20 06:35] LABS: HEMOLYSIS 63 (0-50)
[2020-09-20 06:36] LABS: Potassium 4.1 mmol/L (3.4-5.1)
--- NOTE | 2020-09-20 07:36 | PM.DS.1 ---
History of Present Illness History of Present Illness Date Patient Seen: 09/20/20 Time Patient Seen: 17:31 Chief complaint: sent for apendicitis Narrative: 70-year-old male history of obesity admitted for acute appendicitis. He is having some vague abdominal pain over the last 2-3 days he underwent a CT abdomen pelvis yesterday which demonstrates acute appendicitis was no free fluid or abscess. At arrival afebrile vital signs within normal limits, WBC 9, hematocrit 48 creatinine 1.04. Prior open bilateral inguinal hernia otherwise no other abdominal surgery. Discharge Providers Provider Date of admission: 09/17/20 07:34 Discharge Date: 09/20/20 Primary care physician: Franky Liu MD Discharge provider: Kati Castro MD Summary Hospital Course Discharge Diagnosis: Acute appendicitis, urinary retention, thrombocytopenia Hospital Course: Pt admitted and taken to OR for perforated appendicitis with abscess. Drain was placed. Pt had urinary retention on the next day and nunez was placed. POD2 drain was removed and diet was advanced. POD3 pt was tolerating a diet, nunez was removed. Platelets noted to be 87. Enoxaparin was DC'ed. Follow up CBC ordered to be done as outpatient. Status at Discharge Cognitive/behavioral status at discharge: at baseline, oriented Functional status at discharge: independent ambulation Overall status at discharge: patient is progressing back to baseline Time Spent with Patient Time spent: Greater than 30 minutes Exam Vital Signs (past 8 hours): - 09/20/20 00:23 09/20/20 01:48 09/20/20 04:00 Temperature 98.1 F 98.4 F Pulse Rate 72 68 Respiratory Rate 18 16 Blood Pressure 145/91 H 150/75 H Pulse Oximetry 98 99 95 09/20/20 05:00 Temperature Pulse Rate Respiratory Rate Blood Pressure Pulse Oximetry 95 Oxygen Delivery Method Room Air Oxygen Flow Rate 0 Narrative Exam Narrative: GENERAL: Alert, oriented, comfortable. Appears stated age. Answers questions promptly and appropriately. Vital signs noted. HENT: Normocephalic, atraumatic. Hearing intact. EYES: Conjunctiva pink, sclera white, no periorbital swelling. CARDIOVASCULAR: Slight bradycardia at 59. No pedal edema. RESPIRATORY: Non-tachypneic, breathing comfortably on room air. GASTROINTESTINAL: Abdomen soft, mildly distended, incisions c/d/i; appropriately TTP for post op GENITALURINARY: Nunez in place with clear yellow urine MUSCULOSKELETAL: Equal tone and mass bilaterally. SKIN: Warm, dry, soft, appropriate color for ethnicity. No other lesions, rashes, or wounds. NEURO: Alert and Oriented X 3. No gross sensory deficits, or apparent cognitive abnormalities PSYCH: Appropriate affect and mood. Objective Labs Result Diagrams: 09/20/20 05:47 09/20/20 05:47 Labs: Laboratory Results - last 24 hr 09/20/20 09/20/20 05:47 05:47 WBC 7.6 RBC 5.29 Hgb 16.4 Hct 48.6 MCV 92.0 MCH 31.0 MCHC 33.7 RDW 13.2 Plt Count 87 L Neut % (Auto) 67.5 Lymph % (Auto) 20.2 L [place] % (Auto) 8.4 Eos % (Auto) 3.3 Baso % (Auto) 0.6 Neut # (Auto) 5100 Lymph # (Auto) 1500 [place] # (Auto) 600 Eos # (Auto) 200 Baso # (Auto) 0 Sodium 137 Potassium 4.1 Chloride 109 H Carbon Dioxide 20 L BUN 12 Creatinine 0.87 Estimated GFR > 60.0 BUN/Creatinine Ratio 13.8 Glucose 92 Calcium 8.7 Magnesium 2.2 PFSH Medical History BPH (benign prostatic hyperplasia) (Unknown) Chickenpox Elevated PSA (Unknown) Erectile dysfunction (Unknown) Measles Surgical History History of dental surgery (Unknown) Hx of hernia repair (Unknown) Family History Father Heart disease Grandfather Heart disease Grandmother Heart disease Social History household members: spouse Smoking Status: Never smoker alcohol intake: never substance use type: does not use Discharge Assessment & Plan Assessment and Plan Assessment: Acute perforated appendicitis, urinary retention, thrombocytopenia Plan of Treatment: Follow up next week with Dr. Sigala, repeat CBC this week, tamsulosin, oxydocone, tylenol. Follow up with Dr. Liu this week. Discharge Plan Discharge Plan Patient Disposition: Home Provider Discharge Comment: No lifting >20 lbs x [address] weeks[address] while taking narcotics. Rx for flomax (tamsulosin) was written for 30 days. Please follow up with Dr. 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 If you have difficulty urinating, try soaking in a shallow tub of warm water. If you are not able to urinate in 8 hours, or if you feel you need to urinate but you can't, please go to the ER. Your platelet level dropped, which may be due to surgery or the infection of your appendix, but should be rechecked later this week to make sure it is returning to normal. Please come to the lab to have your blood drawn tomorrow or the next day. Discharge orders & Medications Prescriptions: New docusate sodium [Colace] 100 mg capsule 100 mg PO BID Qty: 30 RF: 0 oxycodone 5 mg tablet 5 mg PO Q6H PRN (Reason: pain) Qty: 30 RF: 0 acetaminophen [Tylenol] 325 mg capsule 650 mg PO QID PRN (Reason: pain) Qty: 60 RF: 0 tamsulosin 0.4 mg capsule 0.4 mg PO BEDTIME Qty: 30 RF: 0 Other Ambulatory Orders: Complete Blood Count AUTO DIFF (Stat) Timeframe: 2 Days Facility: [facility] - Location: Laboratory Ordered By: Kati Castro Follow up/Referrals: Franky Liu MD [Primary Care Provider] - (follow up this week, discuss continuing flomax or referral to urology) Robert Sigala MD [Physician] - 2 Weeks Diet/Activity/Treatments Diet: Diet as Tolerated Skin/Wound/Dressing Care Report to your healthcare provider any signs of infection, such as:: chills, fever, increased pain, unusual drainage and unusual redness Visit Report/Discharge Packet Instructions: DI for an Appendectomy, DI for Urinary Retention in Men, DI for Prescription Opioid Use, [facility]: Wound Care Stand Alone Forms: Surgery Discharge Discharge Data Primary Care Provider: Franky Liu Quality VTE Deep Vein Thrombosis/Pulmonary Embolism Present on Admission: No
[2020-09-20] MEDS: DOCUSATE 100 MG CAPSULE PO (09:16)
[2020-09-20] MEDS: TAMSULOSIN 0.4 MG CAPSULE PO (09:16)
[2020-09-20] MEDS: ENOXAPARIN 40 MG/0.4 ML SYRINGE SUBCUT (09:16)
--- NOTE | 2020-09-20 13:56 | PC.NURSE ---
Pt A&Ox3. VSS, afebrile. MD Scott at bedside this shift, anticipating discharge this afternoon after nunez dc'd. Pt able to void x3 ,PVR = 0cc. He reports voiding small amounts however only intake 500 cc. Encouraged to drink po flluids, tolerating full liquid diet but denies appetite, feelling slight queezy. He declines anti nausea medication. Ambulating multiple times around the white. LS CTA+ BS x4, BM x1 this shift, soft. Cleared for discharge home with , with prescription for tamsulosin and to follow up with PCP. Explained discharge instructions, reviewed follow-up and medications. He verbalized understanding, and was escorted via wheelchair by BOTTOM SAW OPERATOR with all of belongings toprivate vehicle with .
== END 2020-09-20 15:40 | disposition home or self-care (01) | DRG 340 ==
LOC: ED 09-17 01:40 → AC 09-17 01:57
PROVIDERS: Specialist; Surgery; Admitting Provider Surgery; Emergency Provider Emergency Medicine; PCP Student in an Organized Health Care Education/Training Program; Referring Provider Emergency Medicine; Visit Provider Surgery
PROC: 0DTJ4ZZ Resection of Appendix, Percutaneous Endoscopic Approach (ICD-10-PCS; CPT 44970; principal; 2020-09-17 08:45)
DX: K35.33 Acute appendicitis with perforation, localized peritonitis, and gangrene, with abscess (principal); N40.1 Benign prostatic hyperplasia with lower urinary tract symptoms; R33.8 Other retention of urine; Z20.822 Contact with and (suspected) exposure to COVID-19; D69.6 Thrombocytopenia, unspecified
CPT/HCPCS: 36415; 44970; 74176; 74177; 80048; 80053; 81001; 82977; 83690; 83735; 85025; 85610; 85730; 87635; 99222; 99284; G0103; G0378; J0330; J1100; J1650; J1885; J2250; J2405; J2543; J2704; J3010; J7121; Q9967

== ENCOUNTER 2020-09-21 00:20 | Emergency (ER) | payer MEDICARE, OTHER, SELFPAY ==
[2020-09-17 02:23] VITALS: BMI 31.6
[2020-09-21 00:20] VITALS: BP 185/117; PULSE 106; RESP 18; TEMP 37.2; O2SAT 97; BMI 26.3
--- NOTE | 2020-09-21 00:22 | ED.MALEGU ---
HPI - Male Genitourinary General Chief complaint: Urogenital-Male Stated complaint: urinary retention, just got out of hospital Time Seen by Provider: 09/21/20 00:22 Source: patient and family Mode of arrival: Ambulatory Limitations: no limitations History of Present Illness HPI Narrative: 70-year-old male nonsmoker with history of BPH and a recent hospitalization for laparoscopic appendectomy presents with a chief complaint of inability to urinate over the course of the day and now increasing suprapubic pain. He denies any nausea vomiting, fever or chills. He is passing gas and having bowel movements. Onset (ago): hour(s) Duration: constant Location: abdomen Severity: moderate Quality: aching Relieving factors: none Exacerbating factors: none Associated symptoms: Reports denies other symptoms Related Data Previous Rx's Medication Instructions Recorded acetaminophen [Tylenol] 650 mg PO QID PRN #60 cap 09/17/20 docusate sodium [Colace] 100 mg PO BID #30 cap 09/17/20 oxycodone 5 mg PO Q6H PRN #30 tab 09/17/20 tamsulosin 0.4 mg PO BEDTIME #30 cap 09/20/20 Allergies Allergy/AdvReac Type Severity Reaction Status Date / Time No Known Drug Allergies Allergy Verified 09/16/20 10:51 Review of Systems Constitutional Constitutional: Denies chills, Denies fatigue, Denies fever(s), Denies frequent falls, Denies lethargy and Denies weakness Eyes Eyes: Denies change in vision, Denies eye discharge, Denies irritation and Denies loss of vision ENT Ears, Nose, Mouth, and Throat: Denies change in voice, Denies dizziness, Denies neck pain, Denies sore throat and Denies throat swelling Cardiovascular Cardiovascular: Denies chest pain, Denies irregular heart rhythm, Denies lightheadedness, Denies palpitations, Denies dyspnea, Denies dyspnea on exertion and Denies orthopnea Respiratory Respiratory: Denies cough, Denies dyspnea, Denies dyspnea on exertion and Denies wheezing Gastrointestinal Gastrointestinal: Denies abdominal pain, Denies change in bowel habits, Denies diarrhea, Denies nausea and Denies vomiting Genitourinary Genitourinary: Reports oliguria and Reports difficulty urinating Musculoskeletal Musculoskeletal: Denies neck pain and Denies numbness Integumentary/Breasts Skin/Breast: Denies pruritus, Denies erythema, Denies rash and Denies wounds Neurologic Neurologic: Denies behavioral changes, Denies confusion, Denies dizziness, Denies frequent falls, Denies loss of vision, Denies numbness and Denies weakness Psychiatric Psychiatric: Denies anxiety, Denies behavioral changes, Denies confusion, Denies depression, Denies homicidal ideation and Denies suicidal ideation Endocrine Endocrine: Denies fatigue, Denies flushing and Denies palpitations Hematologic/Lymphatic Hematologic/Lymphatic: Denies easy bruising Allergic/Immunologic Allergic/Immunologic: Denies urticaria, Denies throat swelling and Denies wheezing Patient History Medical History BPH (benign prostatic hyperplasia) (Unknown) Chickenpox Elevated PSA (Unknown) Erectile dysfunction (Unknown) Measles Surgical History History of dental surgery (Unknown) Hx of hernia repair (Unknown) Family History Father Heart disease Grandfather Heart disease Grandmother Heart disease Social History household members: spouse Smoking Status: Never smoker alcohol intake: never substance use type: does not use Smoking Status: Never smoker Substance Use Type: does not use Exam Narrative Exam Narrative: GEN: AOx3 and in mild distress EYES: Pupils are equal, round, and reactive to light and accommodation. Extraoccular muscles are intact bilaterally. There is no subconjunctival hemorrhage or exudate. CHEST: Lungs are clear to auscultation bilaterally and free of wheezes, rales, or rhonchi. Heart rate is regular rhythm, there are no murmurs, clicks, rubs, or gallops. There is no chest wall tenderness. ABD: Abdomen is soft and mildly tender overlying bladder and incision sites which are clean, dry and intact There is no guarding or rebound. Bowel sounds are normal in all 4 quadrants. There is no mass or organomegaly. EXT: Full painless ROM of all extremities with no loss of sensation or strength. SKIN: Warm, pink, and dry. No erythema or rash Initial Vital Signs Initial Vital Signs: Vital Signs Temperature 99 F 04/06/21 00:20 Pulse Rate 106 H 04/06/21 00:20 Respiratory Rate 18 09/21/20 00:20 Blood Pressure 185/117 H 09/21/20 00:20 Pulse Oximetry 97 09/21/20 00:20 Course Course Course Narrative: Bedside bladder scan notes over 700 cc, Galaviz catheter ordered and placed Well over 1000 cc of urine out, patient has complete resolution of symptoms. Urine sent, no sign of infection. Patient and given return precautions, they understand and agree with the diagnosis and plan and event questions answered to their apparent satisfaction Orders Ordered: ED Orders 09/21/20 00:50 Urine Microscopic Stat Vital Signs Vital signs: Vital Signs - 8 hr 09/21/20 00:20 09/21/20 01:34 Temperature 99 F Pulse Rate 106 H 71 Respiratory Rate 18 20 Blood Pressure 185/117 H 172/94 H Pulse Oximetry 97 99 MDM - Male Genitourinary Lab Data Labs: Lab Results 09/21/20 Range/Units 00:50 Urine RBC 1-5/hpf (0-5/HPF) Urine WBC None seen (0-5/HPF) Urine Bacteria Occasional (0-1) (None) Ur Culture Indicated? Cult not indicated Urine Dip Bedside Urine Glucose Negative Bedside Urine Bilirubin - Negative Bedside Urine Ketone ++ 40 Urine Specific [place] 1.020 Bedside Urine Occult Blood +++ Bedside Urine pH 6.0 Bedside Urine Protein - Negative Bedside Urine Urobilinogen - Negative Bedside Urine Nitrite - Negative Bedside Urine Leukocytes - Negative Esterase Discharge Plan Departure Patient Disposition: Home Clinical Impression: Acute retention of urine Instructions: DI for Urinary Retention in Men Activity Restrictions/Additional Instructions: *You have been diagnosed with [acute urinary retention] *What to do: *Take medications as directed *Follow up with Dr. Humphrey (urology) in 2-3 days, call for an appointment. Let them know you were seen in the Emergency Department and that we ask that you be seen in follow up *Return to ER if you should have any new, worsening or concerning symptoms, such as [return of pain, fever greater than 101 F, persistent vomiting, other bothersome symptoms] Prescriptions: No Action docusate sodium [Colace] 100 mg capsule 100 mg PO BID Qty: 30 RF: 0 oxycodone 5 mg tablet 5 mg PO Q6H PRN (Reason: pain) Qty: 30 RF: 0 acetaminophen [Tylenol] 325 mg capsule 650 mg PO QID PRN (Reason: pain) Qty: 60 RF: 0 tamsulosin 0.4 mg capsule 0.4 mg PO BEDTIME Qty: 30 RF: 0 Referrals: Franky Liu MD [Primary Care Provider] - Solitario Humphrey MD [Physician] -
[2020-09-21 01:02] LABS: WBC Urine None Seen (0-5/HPF)
[2020-09-21 01:11] LABS: Bacteria Urine Occasional (0-1); Culture Indicated Urine Cult Not Indicated; RBC Urine 1-5/HPF (0-5/HPF)
[2020-09-21 01:34] VITALS: BP 172/94; PULSE 71; RESP 20; O2SAT 99
== END 2020-09-21 01:34 | disposition home or self-care (01) ==
LOC: ED 01:31
PROVIDERS: Emergency Provider Emergency Medicine; PCP Student in an Organized Health Care Education/Training Program
DX: R33.9 Retention of urine, unspecified (principal)
CPT/HCPCS: 51798; 81003; 81015; 99283

== ENCOUNTER → 2020-09-22 11:24 | Outpatient (CLI) | payer MEDICARE, OTHER, SELFPAY ==
[2020-09-21 11:27] VITALS: BMI 31.6
[2020-09-22 11:38] LABS: Add Manual Diff / Slide Review NO; Basophils Absolute Auto 100 /uL (0-100); Basophils Percent Auto 0.4 % (0-2); Eosinophils Absolute Auto 200 /uL (0-450); Eosinophils Percent Auto 1.3 % (2-4); Hematocrit 50.3 % (41-53); Lymphocytes Absolute Auto 1600 /uL (1100-4500); Lymphocytes Percent Auto 12.7 % (25-40); Mean Corpuscular HGB Conc 33.8 % (30-36); Mean Corpuscular Hemoglobin 31.1 PG (26-34); Mean Corpuscular Volume 92.1 fL (80-100); Monocytes Absolute Auto 800 /uL (0-900); Monocytes Percent Auto 6.4 % (3-14); Neutrophils Absolute Auto 9900 /uL (1500-7000); Neutrophils Percent Auto 79.2 % (50-75); Platelet Count 189 X10^3/uL (150-400); Red Blood Cell Count 5.46 X10^6/uL (4.5-5.9); Red Cell Distribution Width 13.1 % (11.6-14.8); White Blood Cell Count 12.5 X10^3/uL (4.5-11.0)
== END ==
PROVIDERS: PCP Student in an Organized Health Care Education/Training Program; Referring Provider Surgery; Visit Provider Surgery
DX: D69.6 Thrombocytopenia, unspecified (principal)
CPT/HCPCS: 36415; 85025

== ENCOUNTER 2020-09-28 23:04 | Emergency (ER) | payer MEDICARE, OTHER, SELFPAY ==
[2020-09-21 11:27] VITALS: BMI 31.6
[2020-09-28 23:22] VITALS: BP 188/101; PULSE 91; RESP 22; TEMP 36.6; O2SAT 97
--- NOTE | 2020-09-28 23:22 | ED.GENADULT ---
HPI - General Adult General Chief complaint: Urogenital-Male Stated complaint: urinary retention Time Seen by Provider: 09/28/20 23:14 Source: patient Mode of arrival: Ambulatory Limitations: no limitations History of Present Illness HPI narrative: Patient is a 70-year-old male who approximately 1 week ago was seen here in this emergency department for urinary retention. It occurred in the perioperative. When he had his appendix removed for acute appendicitis. He has since been seen by Urology. Earlier today he did have the urinary catheter removed by Urology. He followed up several hours later and was able to urinate. He stated that he did have 1 time today where he felt like he emptied his bladder however since then has been unable to urinate and is not developing lower abdominal pain. Related Data Home Medications Medication Instructions Recorded Confirmed ascorbic acid 100 mg-elderberry tab PO 09/23/20 09/23/20 fruit 50 mg chewable tablet cholecalciferol (vitamin D3) 25 25 mcg PO DAILY 09/23/20 09/23/20 mcg (1,000 unit) capsule dextromethorphan HBr 5 mg/5 mL 10 mg PO Q6H PRN 09/23/20 09/23/20 oral syrup loratadine 10 mg tablet 10 mg PO DAILY 09/23/20 09/23/20 methylcellulose (laxative) 500 mg 500 mg PO DAILY 09/23/20 09/23/20 tablet multivitamin with calcium and tab PO 09/23/20 09/23/20 minerals-folic acid 200 mcg tablet potassium gluconate 550 mg (90 mg) 550 mg PO DAILY 09/23/20 09/23/20 tablet Previous Rx's Medication Instructions Recorded acetaminophen [Tylenol] 650 mg PO QID PRN #60 cap 09/17/20 tamsulosin 0.4 mg PO BEDTIME #30 cap 09/20/20 ciprofloxacin HCl 250 mg tablet 250 mg PO BID #6 tab 09/23/20 Allergies Allergy/AdvReac Type Severity Reaction Status Date / Time No Known Drug Allergies Allergy Verified 09/23/20 11:09 Review of Systems Constitutional Constitutional: Denies fever(s) Cardiovascular Cardiovascular: Denies chest pain and Denies dyspnea Respiratory Respiratory: Denies dyspnea Gastrointestinal Gastrointestinal: Reports abdominal pain Genitourinary Genitourinary: Reports oliguria and Reports urinary hesitancy Genitourinary: Reports urinary hesitancy Musculoskeletal Musculoskeletal: Denies back pain Integumentary/Breasts Skin/Breast: Denies rash Neurologic Neurologic: Denies behavioral changes Psychiatric Psychiatric: Denies behavioral changes Hematologic/Lymphatic On Anticoagulants: No Allergic/Immunologic Allergic/Immunologic: Denies urticaria Patient History Medical History BPH w urinary obs/LUTS Chickenpox Elevated PSA (Unknown) Erectile dysfunction (Unknown) Measles Surgical History History of appendectomy History of dental surgery (Unknown) Hx of hernia repair (Unknown) Family History Father Heart disease Grandfather Heart disease Grandmother Heart disease Sister Seizure disorder Family/Other Diabetes mellitus Family/Other Seizure disorder Social History marital status: household members: spouse occupational status: unemployed Smoking Status: Never smoker alcohol intake: never substance use type: does not use caffeine: No Smoking Status: Never smoker Substance Use Type: does not use Exam Initial Vital Signs Initial Vital Signs: Vital Signs Temperature 97.9 F 09/28/20 23:22 Pulse Rate 91 H 09/28/20 23:22 Respiratory Rate 22 09/28/20 23:22 Blood Pressure 188/101 H 09/28/20 23:22 Pulse Oximetry 97 09/28/20 23:22 Const General: cooperative Limitations: mental status not altered GI Inspection: non-distended Palpation: soft and tender (Lower abdomen) Skin Lesions: no lesions Rashes: no rashes Neuro General: patient alert and patient awake Cognition: normal cognition Speech: speech normal Extrem General: capillary refill normal Psych Appearance: grossly normal and well kempt Course Orders Ordered: Discontinued Medications Lidocaine HCl (Lidocaine 2% (Glydo) 6 Ml Gel) 6 ml TOP NOW ONE Stop: 09/28/20 23:19 Lidocaine HCl (Lidocaine 2% (Glydo) 6 Ml Gel) 6 ml TOP NOW ONE Stop: 09/28/20 23:31 Last Admin: 09/29/20 00:19 Dose: 6 ml Documented by: NAYANA Vital Signs Vital signs: Vital Signs - 8 hr 09/28/20 23:22 09/29/20 00:19 Temperature 97.9 F Pulse Rate 91 H 62 Respiratory Rate 22 16 Blood Pressure 188/101 H 165/94 H Pulse Oximetry 97 98 Medical Decision Making MDM Narrative Medical decision making narrative: A urinary catheter was placed with return of just over 1 L of urine. Patient reported improvement of his symptoms. He already has a follow-up with Urology later today. Will send home with a catheter in place. He was given return precautions and follow-up instructions. He expressed understanding and agreement. Discharge Plan Departure Patient Disposition: Home Clinical Impression: Urine retention Instructions: How to Care for Your Galaviz Catheter -- Male, DI for Urinary Retention in Men Activity Restrictions/Additional Instructions: Continue all of your medications as directed. Keep your appointment with Urology that is already scheduled for later today. Return to the emergency department for any new or worsening symptoms Prescriptions: No Action acetaminophen [Tylenol] 325 mg capsule 650 mg PO QID PRN (Reason: pain) Qty: 60 RF: 0 tamsulosin 0.4 mg capsule 0.4 mg PO BEDTIME Qty: 30 RF: 0 One-A-Day Proactive 65 Plus 200 mcg tablet PO RF: 0 cholecalciferol (vitamin D3) 25 mcg (1,000 unit) capsule 25 mcg PO DAILY RF: 0 potassium gluconate 550 mg (90 mg) tablet 550 mg PO DAILY RF: 0 Citrucel 500 mg tablet 500 mg PO DAILY RF: 0 ascorbic acid-elderberry fruit [Airborne (elderberry)] 100-50 mg tablet,chewable PO RF: 0 loratadine [Claritin] 10 mg tablet 10 mg PO DAILY RF: 0 Vicks DayQuil Cough 5 mg/5 mL syrup 10 mg PO Q6H PRNRF: 0 ciprofloxacin HCl 250 mg tablet 250 mg PO BID Qty: 6 RF: 0 Referrals: Franky Liu MD [Primary Care Provider] -
[2020-09-29 00:19] VITALS: BP 165/94; PULSE 62; RESP 16; O2SAT 98
[2020-09-29] MEDS: LIDOCAINE 2% (GLYDO) 6 ML GEL TOP (00:19)
== END 2020-09-29 00:19 | disposition home or self-care (01) ==
PROVIDERS: Emergency Provider Emergency Medicine; PCP Student in an Organized Health Care Education/Training Program
DX: R33.9 Retention of urine, unspecified (principal); R10.9 Unspecified abdominal pain; Z46.6 Encounter for fitting and adjustment of urinary device
CPT/HCPCS: 51701; 51798; 99211; 99283

== ENCOUNTER 2020-10-09 14:18 | Emergency (ER) | payer MEDICARE, OTHER, SELFPAY ==
[2020-09-29 09:18] VITALS: BMI 31.6
[2020-10-09 14:15] VITALS: BP 133/80; PULSE 134; RESP 28; TEMP 36.8; O2SAT 83
--- NOTE | 2020-10-09 14:31 | DI.CT.S_ITS ---
PROCEDURE: CT ANGIO CHEST PE PROTOCOL INDICATIONS: hypoxia recent surgery TECHNIQUE: After the administration of intravenous contrast, 2 mm thick sections acquired from the pulmonary apices to the posterior costophrenic angles. 3-dimensional maximum intensity projection (MIP) coronal and sagittal reformats were then acquired through the thorax. For radiation dose reduction, the following was used: automated exposure control, adjustment of mA and/or kV according to patient size. COMPARISON: None. FINDINGS: Image quality: Suboptimal opacification of pulmonary arterial structures. Contrast is predominantly in the systemic arterial circulation. 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 There also appears to be posterior nonocclusive left main pulmonary artery clot and occlusive left upper lobe pulmonary artery clot and pulmonary artery clot in multiple left lower lobe basilar segments. Lungs and pleura: Patchy bibasilar atelectasis. No pleural effusions or pneumothorax. Central and peripheral airways are patent. Mediastinum: Heart size is normal, without pericardial effusion. There is a reversal of the RV LV ratio and there is significant reflux of contrast into the inferior vena cava and hepatic venous structures consistent with right heart failure. No mediastinal or hilar adenopathy. Thoracic aorta is normal in caliber and enhancement. Esophagus is normal in caliber, without hiatal hernia. Bones and chest wall: No suspicious bony lesions. Ribs and thoracic spine appear intact throughout. Thyroid gland is unremarkable as visualized. No axillary or supraclavicular adenopathy. Satisfactory position of ET tube and NG tube. Abdomen: Mild proximal SMA stenosis Visualized upper abdominal solid organs appear normal in the early arterial phase of enhancement. IMPRESSION: 1. Suboptimal bolus timing. 2. Findings are highly suggestive for massive bilateral pulmonary emboli, allowing for technical difficulties. 3. Reversal of RV LV ratio and significant reflux into the inferior vena cava and hepatic veins is consistent with right heart strain. Comment: Findings were discussed with Dr. Rea on 10/09/2020 at 1539 hours Dictated by: Fernandez Hahn M.D. on 10/09/2020 at 15:35 Approved by: Fernandez Hahn M.D. on 10/09/2020 at 15:44
[2020-10-09 14:33] VITALS: O2SAT 88
[2020-10-09] MEDS: HEPARIN 5,000 UNIT/ML VIAL 7500 UNIT IV (14:37)
[2020-10-09 14:38] LABS: Add Manual Diff / Slide Review NO; Basophils Absolute Auto 100 /uL (0-100); Basophils Percent Auto 0.6 % (0-2); Eosinophils Absolute Auto 100 /uL (0-450); Eosinophils Percent Auto 0.9 % (2-4); Hematocrit 51.5 % (41-53); Hemoglobin 17.2 g/dL (13.5-17.5); Lymphocytes Absolute Auto 3500 /uL (1100-4500); Lymphocytes Percent Auto 29.4 % (25-40); Mean Corpuscular HGB Conc 33.3 % (30-36); Monocytes Absolute Auto 1100 /uL (0-900); Monocytes Percent Auto 9.2 % (3-14); Neutrophils Absolute Auto 7200 /uL (1500-7000); Neutrophils Percent Auto 59.9 % (50-75); Platelet Count 237 X10^3/uL (150-400); Red Blood Cell Count 5.53 X10^6/uL (4.5-5.9); Red Cell Distribution Width 13.3 % (11.6-14.8); White Blood Cell Count 12.1 X10^3/uL (4.5-11.0)
[2020-10-09] MEDS: HEPARIN DRIP 25,000 UNIT/500 ML IV.SOLN 24 UNIT IV (14:41)
--- NOTE | 2020-10-09 14:44 | PC.NURSE ---
verbal order for etomidate 15mg and SUCC 150mg given in room.
[2020-10-09 14:45] LABS: COVID19 -Nasal RAPID Negative (Negative)
--- NOTE | 2020-10-09 14:45 | PC.NURSE ---
1441 15 etomidate pushed into RAC
[2020-10-09] MEDS: SUCCINYLCHOLINE 100 MG/5 ML INJ 150 MG IV (14:46)
--- NOTE | 2020-10-09 14:46 | PC.NURSE ---
1445 15mg etomidate pushed into right AC IV. 1446 150mg succ into RAC IV 1448 tube placed, 5point check with good breath sounds. 8.0 ET tube, color change, secured, bagged to 96% 1452 cxr obtained
[2020-10-09 14:48] LABS: Alanine Aminotransferase 32 IU/L (<50); Albumin 4.4 g/dL (3.5-5.0); Albumin Globulin Ratio 1.3 (1.0-2.8); Alkaline Phosphatase 82 U/L (38-126); Aspartate Aminotransferase 31 IU/L (17-59); BUN Creatinine Ratio 16.8 (6-22); Bilirubin Total 0.5 mg/dL (0.2-1.3); Blood Urea Nitrogen 18 mg/dL (9-20); Calcium 9.7 mg/dL (8.4-10.2); Carbon Dioxide 23 mmol/L (22-32); Chloride 103 mmol/L (98-107); Creatine Kinase 56 U/L (55-170); Estimated Glomerular Filt Rate > 60.0 mL/min (>60); Globulin 3.5 g/dL (1.7-4.1); Glucose 124 mg/dL (80-110); HEMOLYSIS < 15 (0-50); Potassium 3.6 mmol/L (3.4-5.1); Sodium 140 mmol/L (137-145); Total Protein 7.9 g/dL (6.3-8.2)
[2020-10-09 14:49] LABS: PTT Partial Thromboplastin Tim 34 SECONDS (26.4-36.2)
[2020-10-09] MEDS: propofoL 1,000 MG/100 ML VIAL 6.69 MG IV (14:54)
[2020-10-09 14:57] LABS: Lactate (Lactic Acid) 2.4 mmol/L (0.7-2.1)
--- NOTE | 2020-10-09 15:00 | DI.RAD.S_ITS ---
PROCEDURE: XR CHEST 1V INDICATIONS: post intubation / NGT placement check TECHNIQUE: One view of the chest was acquired. COMPARISON: [facility], , XR CHEST 2V, 02/27/2019, 15:41. FINDINGS: Surgical changes and devices: ET tube tip is approximately 2.9 cm above the khang Lungs and pleura: Lungs are clear. No pleural effusions or pneumothorax. Mediastinum: Mediastinal contours appear normal. Heart size is normal. Bones and chest wall: No suspicious bony lesions. Overlying soft tissues appear unremarkable. IMPRESSION: 1. ET tube tip is approximately 2.9 cm above the khang. 2. No evidence acute pulmonary process. Dictated by: Fernandez Hahn M.D. on 10/09/2020 at 15:27 Approved by: Fernandez Hahn M.D. on 10/09/2020 at 15:28
[2020-10-09] MEDS: ETOMIDATE 2 MG/ML 10 ML VIAL 15 MG IV (15:02)
[2020-10-09] MEDS: SUCCINYLCHOLINE 200 MG/10 ML VIAL 150 MG IV (15:04)
[2020-10-09] MEDS: ISOOSMOTIC VEHICLE IV (15:17)
[2020-10-09] MEDS: ALTEPLASE IV (15:17)
[2020-10-09 15:27] LABS: Troponin I 0.295 ng/mL (0.01-0.034)
[2020-10-09 15:44] VITALS: BP 160/80; PULSE 126; RESP 22; O2SAT 93
--- NOTE | 2020-10-09 15:50 | ED_ITS ---
HPI - SOB/Dyspnea General Chief Complaint: Shortness of Breath/Dyspnea Stated Complaint: SOB Time Seen by Provider: 10/09/20 14:28 Source: patient and EMS Mode of arrival: EMS Limitations: no limitations History of Present Illness HPI Narrative: A 70-year-old male with history of appendectomy on 09/17/2020 presenting today with sudden onset shortness of breath. He actually was having some shortness of breath yesterday however today he had 2 very big episodes of worsening shortness of breath. The 2nd 1 actually caused a syncopal episode at which point his called EMS. He was found to be cyanotic from the nipples up to his head. Requiring nasal cannula and non-rebreather. The patient is awake alert and talking but a obviously hypoxic. He states he has actually been up and walking around without significant difficulty. Related Data Home Medications Medication Instructions Recorded Confirmed ascorbic acid 100 mg-elderberry tab PO 09/23/20 10/06/20 fruit 50 mg chewable tablet cholecalciferol (vitamin D3) 25 25 mcg PO DAILY 09/23/20 10/06/20 mcg (1,000 unit) capsule dextromethorphan HBr 5 mg/5 mL 10 mg PO Q6H PRN 09/23/20 10/06/20 oral syrup loratadine 10 mg tablet 10 mg PO DAILY 09/23/20 10/06/20 methylcellulose (laxative) 500 mg 500 mg PO DAILY 09/23/20 10/06/20 tablet multivitamin with calcium and tab PO 09/23/20 10/06/20 minerals-folic acid 200 mcg tablet potassium gluconate 550 mg (90 mg) 550 mg PO DAILY 09/23/20 10/06/20 tablet Previous Rx's Medication Instructions Recorded acetaminophen [Tylenol] 650 mg PO QID PRN #60 cap 09/17/20 ciprofloxacin HCl 250 mg tablet 250 mg PO BID #6 tab 09/29/20 tamsulosin 0.4 mg capsule 0.8 mg PO BEDTIME #180 cap 10/06/20 Allergies Allergy/AdvReac Type Severity Reaction Status Date / Time No Known Drug Allergies Allergy Verified 10/09/20 14:27 Review of Systems Review of Systems Narrative: GENERAL: Denies chills, fatigue, malaise, fever, sweats, travel HEENT: Denies sinus pain, ear pain, sore throat, difficulty swallowing, neck pain RESPIRATORY: See HPI CARDIOVASCULAR: Denies chest pain, palpitations, orthopnea, edema GASTROINTESTINAL: Denies nausea, vomiting, abdominal pain, diarrhea, constipation, melena. : Denies dysuria, frequency, incontinence, hematuria, urinary retention, flank pain. MUSCULOSKELETAL: Denies weakness, joint pain, or bony pain SKIN: No rash, no erythema, no pruritus NEUROLOGIC: Denies weakness, dizziness, headache, numbness, change in speech, confusion PSYCHIATRIC: No concerning psychosocial issues. 12 point review of systems is negative except for those stated above and HPI Patient History Medical History BPH w urinary obs/LUTS Chickenpox Elevated PSA (Unknown) Erectile dysfunction (Unknown) Measles Surgical History History of appendectomy History of dental surgery (Unknown) Hx of hernia repair (Unknown) Family History Father Heart disease Grandfather Heart disease Grandmother Heart disease Sister Seizure disorder Family/Other Diabetes mellitus Family/Other Seizure disorder Social History marital status: household members: spouse occupational status: unemployed Smoking Status: Never smoker alcohol intake: never substance use type: does not use caffeine: No Smoking Status: Never smoker Substance Use Type: does not use Exam Initial Vital Signs Initial Vital Signs: Vital Signs Temperature 98.2 F 10/09/20 14:15 Pulse Rate 134 H 10/09/20 14:15 Respiratory Rate 28 H 10/09/20 14:15 Blood Pressure 133/80 10/09/20 14:15 Pulse Oximetry 83 L 10/09/20 14:15 GENERAL: Cyanotic tachypneic and in acute distress. HEENT: Head atraumatic,EOMI, pupils reactive, face symmetric, moist mucous membranes CARDIOVASCULAR: Tachycardic regular no murmur RESPIRATORY: Conversational dyspnea cyanotic tachypneic clear breath sounds bilaterally ABDOMEN: Soft, nontender. Normoactive bowel sounds all 4 quadrants. No guard ing or rebound. Scars noted no sign of infection EXTREMITIES: Normal range of motion, no clubbing or edema. Neurovascularly intact NEUROLOGICAL: Alert and oriented x4. SKIN: Warm, dry, no laceration, no petechiae, no rashes or lesions. Procedures Intubation Time out performed: Yes sedative: Etomidate paralytic: Succinylcholine Laryngoscope: fiber optic video scope ET Tube Size: 8 ET Tube Uncuffed: Yes Tube Secured Depth (cm): 27 Tube Secured Location: teeth Tube Placement Confirmation: Visualized tube passing through cords, Equal breath sounds bilaterally, No breath sounds over epigastrium, Confirmation by capno metry and Chest Xray Patient Tolerated Procedure: Well Intubation Complications: none Course Orders Ordered: ED Orders 10/09/20 14:23 Complete Blood Count AUTO DIFF Stat Comprehensive Metabolic Panel Stat Lactate (Lactic Acid) Stat Partial Thromboplastin Time Stat Troponin & CK Cardiac Panel Stat 10/09/20 14:24 COVID19 -Nasal swab/Pre-Proc Stat 10/09/20 14:28 RT Consult Eval and Treat Now 10/09/20 14:31 CT angio chest PE protocol Stat 10/09/20 14:46 Consult to Dietitian, Adult Routine 10/09/20 15:00 XR chest 1V DAILY 10/09/20 16:05 ABG [Arterial Blood Gas] Stat 10/09/20 16:47 ABG [Arterial Blood Gas] Stat Discontinued Medications Etomidate (Etomidate 2 Mg/Ml 10 Ml Vial) 15 mg IV NOW ONE Stop: 10/09/20 15:01 Last Admin: 10/09/20 15:02 Dose: 15 mg Documented by: SHEILA Heparin Sodium (Porcine) (Heparin 5,000 Unit/Ml Vial) 7,500 unit IV NOW ONE Stop: 10/09/20 14:32 Last Admin: 10/09/20 14:37 Dose: 7,500 unit Documented by: LASHAUN Heparin Sodium/Dextrose (Heparin Drip) 25,000 unit in 500 mls @ 24 mls/hr IV CONT TURNER; Protocol Last Titration: 10/09/20 18:32 Dose: 0 units/hr, 0 mls/hr Documented by: Admin: 10/09/20 14:41 Dose: 1,200 units/hr, 24 mls/hr Documented by: SHEILA Propofol (Propofol) 1,000 mg in 100 mls @ 6.69 mls/hr IV TITRATE TURNER; Protocol Last Titration: 10/09/20 18:34 Dose: 0 mcg/kg/min, 0 mls/hr Documented by: Titration: 10/09/20 14:57 Dose: 29.9 mcg/kg/min, 20 mls/hr Documented by: Admin: 10/09/20 14:54 Dose: 10 mcg/kg/min, 6.69 mls/hr Documented by: SHEILA Midazolam HCl 50 mg/ Dextrose 250 mls @ 25 mls/hr IV TITRATE TURNER; Protocol Last Infusion: 10/09/20 18:41 Dose: 0 mg/hr, 0 mls/hr Documented by: Admin: 10/09/20 16:04 Dose: 5 mg/hr, 25 mls/hr Documented by: LASHAUN Alteplase, Recombinant 100 mg/ (Miscellaneous) 100 mls @ 50 mls/hr IV NOW ONE Stop: 10/09/20 19:12 Last Infusion: 10/09/20 18:37 Dose: 0 mls/hr Documented by: Admin: 10/09/20 15:17 Dose: 50 mls/hr Documented by: LASHAUN Succinylcholine Chloride (Succinylcholine 100 Mg/5 Ml Inj) 150 mg IV NOW ONE Stop: 10/09/20 15:02 Last Admin: 10/09/20 14:46 Dose: 150 mg Documented by: LASHAUN Succinylcholine Chloride (Succinylcholine 200 Mg/10 Ml Vial) 150 mg IV NOW ONE Stop: 10/09/20 15:04 Last Admin: 10/09/20 15:04 Dose: 150 mg Documented by: SHEILA Vital Signs Vital signs: Vital Signs - 8 hr 10/09/20 14:15 10/09/20 14:33 Temperature 98.2 F Pulse Rate 134 H Respiratory Rate 28 H Blood Pressure 133/80 Pulse Oximetry 83 L 88 L MDM - SOB/Dyspnea Lab Data Result diagrams: 10/09/20 14:23 10/09/20 14:23 Labs: Lab Results 10/09/20 10/09/20 10/09/20 Range/Units 14:23 14:23 14:23 WBC 12.1 H (4.5-11.0) X10^3/uL RBC 5.53 (4.5-5.9) X10^6/uL Hgb 17.2 (13.5-17.5) g/dL Hct 51.5 (41-53) % MCV 93.0 (80-100) fL MCH 31.0 (26-34) PG MCHC 33.3 (30-36) % RDW 13.3 (11.6-14.8) % Plt Count 237 (150-400) X10^3/uL Neut % (Auto) 59.9 (50-75) % Lymph % (Auto) 29.4 (25-40) % [place] % (Auto) 9.2 (3-14) % Eos % (Auto) 0.9 L (2-4) % Baso % (Auto) 0.6 (0-2) % Neut # (Auto) 7200 H (7495-6869) /uL Lymph # (Auto) 3500 (8682-4047) /uL [place] # (Auto) 1100 H (0-900) /uL Eos # (Auto) 100 (0-450) /uL Baso # (Auto) 100 (0-100) /uL APTT (26.4-36.2) SECONDS ABG pH (7.35-7.45) ABG pCO2 (35-45) mmHg ABG pO2 (80-100) mmHg ABG HCO3 (22-26) mmol/L ABG Total CO2 (21-31) mmol/L ABG O2 Saturation (95-100) % ABG Base Excess (-2-2) mmol/L FiO2 Sodium 140 (137-145) mmol/L Potassium 3.6 (3.4-5.1) mmol/L Chloride 103 (98-107) mmol/L Carbon Dioxide 23 (22-32) mmol/L BUN 18 (9-20) mg/dL Creatinine 1.07 (0.66-1.25) mg/dL Estimated GFR > 60.0 (>60) mL/min BUN/Creatinine Ratio 16.8 (6-22) Glucose 124 H (80-110) mg/dL Lactate 2.4 H (0.7-2.1) mmol/L Calcium 9.7 (8.4-10.2) mg/dL Total Bilirubin 0.5 (0.2-1.3) mg/dL AST 31 (17-59) IU/L ALT 32 (<50) IU/L Alkaline Phosphatase 82 (38-126) U/L Total Creatine Kinase (55-170) U/L CK-MB (CK-2) CK-MB (CK-2) Rel Index Troponin I (0.01-0.034) ng/mL Total Protein 7.9 (6.3-8.2) g/dL Albumin 4.4 (3.5-5.0) g/dL Globulin 3.5 (1.7-4.1) g/dL Albumin/Globulin Ratio 1.3 (1.0-2.8) SARS-CoV-2 (PCR) (Negative) 10/09/20 10/09/20 10/09/20 Range/Units 14:23 14:23 14:23 WBC Cancelled (4.5-11.0) X10^3/uL RBC Cancelled (4.5-5.9) X10^6/uL Hgb Cancelled (13.5-17.5) g/dL Hct Cancelled (41-53) % MCV Cancelled (80-100) fL MCH Cancelled (26-34) PG MCHC Cancelled (30-36) % RDW Cancelled (11.6-14.8) % Plt Count Cancelled (150-400) X10^3/uL Neut % (Auto) Cancelled (50-75) % Lymph % (Auto) Cancelled (25-40) % [place] % (Auto) Cancelled (3-14) % Eos % (Auto) Cancelled (2-4) % Baso % (Auto) Cancelled (0-2) % Neut # (Auto) Cancelled (1593-7606) /uL Lymph # (Auto) Cancelled (3491-2140) /uL [place] # (Auto) Cancelled (0-900) /uL Eos # (Auto) Cancelled (0-450) /uL Baso # (Auto) Cancelled (0-100) /uL APTT 34 (26.4-36.2) SECONDS ABG pH (7.35-7.45) ABG pCO2 (35-45) mmHg ABG pO2 (80-100) mmHg ABG HCO3 (22-26) mmol/L ABG Total CO2 (21-31) mmol/L ABG O2 Saturation (95-100) % ABG Base Excess (-2-2) mmol/L FiO2 Sodium (137-145) mmol/L Potassium (3.4-5.1) mmol/L Chloride (98-107) mmol/L Carbon Dioxide (22-32) mmol/L BUN (9-20) mg/dL Creatinine (0.66-1.25) mg/dL Estimated GFR (>60) mL/min BUN/Creatinine Ratio (6-22) Glucose (80-110) mg/dL Lactate (0.7-2.1) mmol/L Calcium (8.4-10.2) mg/dL Total Bilirubin (0.2-1.3) mg/dL AST (17-59) IU/L ALT (<50) IU/L Alkaline Phosphatase (38-126) U/L Total Creatine Kinase 56 (55-170) U/L CK-MB (CK-2) TNP CK-MB (CK-2) Rel Index TNP Troponin I 0.295 H* (0.01-0.034) ng/mL Total Protein (6.3-8.2) g/dL Albumin (3.5-5.0) g/dL Globulin (1.7-4.1) g/dL Albumin/Globulin Ratio (1.0-2.8) SARS-CoV-2 (PCR) (Negative) 10/09/20 10/09/20 10/09/20 Range/Units 14:24 16:05 16:47 WBC (4.5-11.0) X10^3/uL RBC (4.5-5.9) X10^6/uL Hgb (13.5-17.5) g/dL Hct (41-53) % MCV (80-100) fL MCH (26-34) PG MCHC (30-36) % RDW (11.6-14.8) % Plt Count (150-400) X10^3/uL Neut % (Auto) (50-75) % Lymph % (Auto) (25-40) % [place] % (Auto) (3-14) % Eos % (Auto) (2-4) % Baso % (Auto) (0-2) % Neut # (Auto) (8131-9884) /uL Lymph # (Auto) (5812-5272) /uL [place] # (Auto) (0-900) /uL Eos # (Auto) (0-450) /uL Baso # (Auto) (0-100) /uL APTT (26.4-36.2) SECONDS ABG pH 7.16 L* 7.19 L* (7.35-7.45) ABG pCO2 69.5 H* 63.0 H* (35-45) mmHg ABG pO2 156 H 350 H* (80-100) mmHg ABG HCO3 25 24 (22-26) mmol/L ABG Total CO2 27 26 (21-31) mmol/L ABG O2 Saturation 99 100 (95-100) % ABG Base Excess -4.0 L -4.0 L (-2-2) mmol/L FiO2 100 100 Sodium (137-145) mmol/L Potassium (3.4-5.1) mmol/L Chloride (98-107) mmol/L Carbon Dioxide (22-32) mmol/L BUN (9-20) mg/dL Creatinine (0.66-1.25) mg/dL Estimated GFR (>60) mL/min BUN/Creatinine Ratio (6-22) Glucose (80-110) mg/dL Lactate (0.7-2.1) mmol/L Calcium (8.4-10.2) mg/dL Total Bilirubin (0.2-1.3) mg/dL AST (17-59) IU/L ALT (<50) IU/L Alkaline Phosphatase (38-126) U/L Total Creatine Kinase (55-170) U/L CK-MB (CK-2) CK-MB (CK-2) Rel Index Troponin I (0.01-0.034) ng/mL Total Protein (6.3-8.2) g/dL Albumin (3.5-5.0) g/dL Globulin (1.7-4.1) g/dL Albumin/Globulin Ratio (1.0-2.8) SARS-CoV-2 (PCR) Negative (Negative) Imaging Data CT scan - chest: Radiologist's Impression: PROCEDURE: CT ANGIO CHEST PE PROTOCOL INDICATIONS: hypoxia recent surgery TECHNIQUE: After the administration of intravenous contrast, 2 mm thick sections acquired from the pulmonary apices to the posterior costophrenic angles. 3-dimensional maximum intensity projection (MIP) coronal and sagittal reformats were then acquired through the thorax. For radiation dose reduction, the following was used: automated exposure control, adjustment of mA and/or kV according to patient size. COMPARISON: None. FINDINGS: Image quality: Suboptimal opacification of pulmonary arterial structures. Contrast is predominantly in the systemic arterial circulation. 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 There also appears to be posterior nonocclusive left main pulmonary artery clot and occlusive left upper lobe pulmonary artery clot and pulmonary artery clot in multiple left lower lobe basilar segments. Lungs and pleura: Patchy bibasilar atelectasis. No pleural effusions or pneumothorax. Central and peripheral airways are patent. Mediastinum: Heart size is normal, without pericardial effusion. There is a reversal of the RV LV ratio and there is significant reflux of contrast into the inferior vena cava and hepatic venous structures consistent with right heart failure. No mediastinal or hilar adenopathy. Thoracic aorta is normal in caliber and enhancement. Esophagus is normal in caliber, without hiatal hernia. Bones and chest wall: No suspicious bony lesions. Ribs and thoracic spine appear intact throughout. Thyroid gland is unremarkable as visualized. No axillary or supraclavicular adenopathy. Satisfactory position of ET tube and NG tube. Abdomen: Mild proximal SMA stenosis Visualized upper abdominal solid organs appear normal in the early arterial phase of enhancement. IMPRESSION: 1. Suboptimal bolus timing. 2. Findings are highly suggestive for massive bilateral pulmonary emboli, allowing for technical difficulties. 3. Reversal of RV LV ratio and significant reflux into the inferior vena cava and hepatic veins is consistent with right heart strain. Comment: Findings were discussed with Dr. Rea on 10/09/2020 at 1539 hours Dictated by: Fernandez Hahn M.D. on 10/09/2020 at 15:35 Chest x-ray: Radiologist's Impression: PROCEDURE: XR CHEST 1V INDICATIONS: post intubation / NGT placement check TECHNIQUE: One view of the chest was acquired. COMPARISON: [facility], [place], XR CHEST 2V, 02/27/2019, 15:41. FINDINGS: Surgical changes and devices: ET tube tip is approximately 2.9 cm above the khang Lungs and pleura: Lungs are clear. No pleural effusions or pneumothorax. Mediastinum: Mediastinal contours appear normal. Heart size is normal. Bones and chest wall: No suspicious bony lesions. Overlying soft tissues appear unremarkable. IMPRESSION: 1. ET tube tip is approximately 2.9 cm above the khang. 2. No evidence acute pulmonary process. Dictated by: Fernandez Hahn M.D. on 10/09/2020 at 15:27 MDM Narrative Medical decision making narrative: Large concern for massive pulmonary embolism. Patient is cyanotic but not hypotensive. Heparin is empirically started. He is conversationally dyspneic but is able to communicate. Requesting at bedside. Both agree for elective intubation. The patient went to CT where he lost pulses and CPR and ACLS protocol started. A tPA the patient pushed you during CPR along with epi and bicarb. ROSC. The CT does confirm large massive bilateral PEs though scan is suboptimal. Patient lost pulses again epi and bicarb given again. Levophed drip was started. Airlift called. Air lift at bedside Dr. laboy [facility] updated on patient's symptoms current treatment and status happily accepts patient for transfer. Critical Care Time Critical Care Time Critical Care Time: Yes Total Critical Care Time: 120 Attestation: The high probability of a clinically significant, sudden or life threatening deterioration of the [cardiovascular] system(s) required my full and direct attention, intervention and personal management. The aggregate critical care time was 120 minutes. This time is in addition to time spent performing reported procedures but includes the following: [x] Data Review and interpretation [x] Patient assessment and monitoring of vital signs [x] Documentation [x] Medication orders and management Discharge Plan Departure Patient Disposition: [facility] Clinical Impression: Pulmonary embolism Qualifiers: Pulmonary embolism type: saddle Chronicity: acute Acute cor pulmonale presence: with acute cor pulmonale Qualified Code(s): I26.02 - Saddle embolus of pulmonary artery with acute cor pulmonale Prescriptions: No Action acetaminophen [Tylenol] 325 mg capsule 650 mg PO QID PRN (Reason: pain) Qty: 60 RF: 0 One-A-Day Proactive 65 Plus 200 mcg tablet PO RF: 0 cholecalciferol (vitamin D3) 25 mcg (1,000 unit) capsule 25 mcg PO DAILY RF: 0 potassium gluconate 550 mg (90 mg) tablet 550 mg PO DAILY RF: 0 Citrucel 500 mg tablet 500 mg PO DAILY RF: 0 ascorbic acid-elderberry fruit [Airborne (elderberry)] 100-50 mg tablet,chewable PO RF: 0 loratadine [Claritin] 10 mg tablet 10 mg PO DAILY RF: 0 Vicks DayQuil Cough 5 mg/5 mL syrup 10 mg PO Q6H PRNRF: 0 ciprofloxacin HCl 250 mg tablet 250 mg PO BID Qty: 6 RF: 0 tamsulosin 0.4 mg capsule 0.8 mg PO BEDTIME Qty: 180 RF: 3 Referrals: Franky Liu MD [Primary Care Provider] -
[2020-10-09] MEDS: MIDAZOLAM 50 MG in DEXTROSE 5% IN WATER 240 ML 25 ML IV (16:04)
[2020-10-09 16:30] LABS: Reflexed Lactate in 2 Hours Y
[2020-10-09 17:53] LABS: PCO2 ABG 69.5 mmHg (35-45); PO2 ABG 156 mmHg (80-100); pH ABG 7.16 (7.35-7.45)
[2020-10-09 17:54] LABS: Fractionated Inspired Oxygen 100; HCO3 ABG 25 mmol/L (22-26); Oxygen Saturation ABG 99 % (95-100); TCO2 ABG 27 mmol/L (21-31)
[2020-10-09 17:56] LABS: Fractionated Inspired Oxygen 100; HCO3 ABG 24 mmol/L (22-26); Oxygen Saturation ABG 100 % (95-100); PO2 ABG 350 mmHg (80-100); TCO2 ABG 26 mmol/L (21-31); pH ABG 7.19 (7.35-7.45)
== END 2020-10-09 18:43 | disposition short-term general hospital (02) ==
PROVIDERS: Emergency Provider Emergency Medicine; PCP Student in an Organized Health Care Education/Training Program; Referring Provider Emergency Medicine
DX: I26.02 Saddle embolus of pulmonary artery with acute cor pulmonale (principal); Z20.822 Contact with and (suspected) exposure to COVID-19
CPT/HCPCS: 31500; 36600; 71045; 71275; 80053; 82550; 82805; 83605; 84484; 85025; 85730; 87635; 92950; 94799; 96365; 96366; 96367; 96368; 96375; 99284; 99291; 99292; C9803; J0171; J0330; J1644; J2250; J2704; J2997; Q9967

== ENCOUNTER 2020-11-13 12:12 | Emergency (ER) | payer MEDICARE, OTHER, SELFPAY ==
[2020-11-10 16:25] VITALS: PULSE 126; RESP 22; O2SAT 93; BMI 31.6
[2020-11-13] VITALS (16 sets, daily range): BP systolic 128–179; BP diastolic 66–102; PULSE 75–103; RESP 15–24; TEMP 36.6; O2SAT 95–100; BMI 29.5
--- NOTE | 2020-11-13 12:30 | DI.RAD.S_ITS ---
PROCEDURE: XR CHEST 1V INDICATIONS: Dyspnea TECHNIQUE: One view of the chest was acquired. COMPARISON: [facility], CR, XR CHEST 1V, 10/09/2020, 14:46. [facility], CR, XR CHEST 2V, 02/27/2019, 15:41. [facility], CT, CT ANGIO CHEST PE PROTOCOL, 10/09/2020, 15:03. FINDINGS: Surgical changes and devices: None. Lungs and pleura: On this semiupright portable chest examination, no large pneumothorax or large pleural effusions are seen. No focal infiltrates are seen. Mediastinum: Mediastinal contours appear normal. Heart size is normal. Bones and chest wall: No suspicious bony lesions. Overlying soft tissues appear unremarkable. IMPRESSION: Portable chest within normal limits. Dictated by: Alexander Hernandez M.D. on 11/13/2020 at 13:07 Approved by: Alexander Hernandez M.D. on 11/13/2020 at 13:08
--- NOTE | 2020-11-13 12:38 | ED_ITS ---
HPI - Dizziness General Chief Complaint: Dizziness Stated Complaint: Light Headed, Heart Flutters, HX PE Time Seen by Provider: 11/13/20 12:25 Source: patient and family Mode of arrival: Ambulatory Limitations: no limitations History of Present Illness HPI Narrative: Patient here with . Complains of dizziness on awakening this morning. No numbness tingling or weakness no slurred speech or facial droop. No headache. No blood in your stools no black stools no hematemesis. No nausea vomiting diarrhea. Patient is on Eliquis for massive pulmonary embolism last month. Status post appendectomy. Patient did get resuscitated here/he coded during CT scan imaging for PE. He was intubated and transferred to [facility]. He has seen a preventative maintenance technician Dr. Juan Ramon Hoyos, with [facility] in [place]. Local office here. He is scheduled for further testing including Holter monitor echocardiogram and a 3rd test that he does not recall. Denies denies any chest pain dyspnea palpitations. He does not feel same like he did when he came here for the pulmonary embolism last month. Patient not toxic. Speaking with ease. Is not on oxygen. Is not required to be on oxygen Related Data Home Medications Medication Instructions Recorded Confirmed cholecalciferol (vitamin D3) 25 25 mcg PO DAILY 09/23/20 10/28/20 mcg (1,000 unit) capsule methylcellulose (laxative) 500 mg 500 mg PO DAILY 09/23/20 10/28/20 tablet multivitamin with calcium and tab PO 09/23/20 10/28/20 minerals-folic acid 200 mcg tablet potassium gluconate 550 mg (90 mg) 550 mg PO DAILY 09/23/20 10/28/20 tablet albuterol sulfate 90 mcg/actuation 2 puff INHALATION Q4-6H PRN 10/26/20 10/28/20 aerosol inhaler apixaban 5 mg tablet 5 mg PO BID 10/26/20 10/28/20 Previous Rx's Medication Instructions Recorded acetaminophen [Tylenol] 650 mg PO QID PRN #60 cap 09/17/20 tamsulosin 0.4 mg capsule 0.8 mg PO BEDTIME #180 cap 10/06/20 Allergies Allergy/AdvReac Type Severity Reaction Status Date / Time No Known Drug Allergies Allergy Verified 11/13/20 12:25 Review of Systems Review of Systems Narrative: GENERAL: Denies chills, fatigue, malaise, fever, sweats. HEENT: Denies sinus pain, ear pain, sore throat RESPIRATORY: Denies dyspnea, cough CARDIOVASCULAR: Denies chest pain, palpitations GASTROINTESTINAL: Denies nausea, vomiting, abdominal pain : Denies dysuria, frequency, hematuria MUSCULOSKELETAL: denies muscle or bony pain SKIN: Denies rash, skin lesions NEUROLOGIC: Denies weakness, numbness, complains of dizziness, no headache ROS Unobtainable: All systems reviewed & are unremarkable except as noted in HPI and below Patient History Medical History BPH w urinary obs/LUTS Chickenpox Elevated PSA (Unknown) Erectile dysfunction (Unknown) History of elevated PSA Measles Surgical History History of appendectomy History of dental surgery (Unknown) Hx of hernia repair (Unknown) Family History Father Heart disease Grandfather Heart disease Grandmother Heart disease Sister Seizure disorder Family/Other Diabetes mellitus Family/Other Seizure disorder Social History marital status: household members: spouse occupational status: unemployed Smoking Status: Never smoker alcohol intake: never substance use type: does not use caffeine: No Smoking Status: Never smoker alcohol intake frequency: holidays/special occasions only Substance Use Type: does not use Exam Narrative Exam Narrative: GENERAL: in no distress, not toxic not dyspneic HEAD: Normocephalic. EYES: Pupils equal round No scleral icterus. No injection no discharge, pink conjunctivae ENT: Mucous membranes moist. NECK: Trachea midline. CARDIOVASCULAR: Regular rate and rhythm without murmurs RESPIRATORY: Clear to auscultation. Breath sounds equal bilaterally. No wheezes, rales, or rhonchi. GASTROINTESTINAL: Abdomen soft, non-tender EXTREMITIES: No gross deformities. BACK: No flank tenderness. NEURO: AOx4. SKIN: Warm and dry PSYCH: Not anxious, is cooperative Initial Vital Signs Initial Vital Signs: Vital Signs Temperature 97.9 F 11/13/20 12:20 Pulse Rate 75 11/13/20 12:20 Respiratory Rate 18 11/13/20 12:20 Blood Pressure 175/83 H 11/13/20 12:20 Pulse Oximetry 99 11/13/20 12:20 Course Course Course Narrative: No new issues during course of stay. Orthostatics completed. Heart rate did elevate with PVCs however patient denies being dizzy with the change in heart rate. Ambulated without difficulty. Orders Ordered: ED Orders 11/13/20 12:25 Complete Blood Count AUTO DIFF Stat Comprehensive Metabolic Panel Stat Partial Thromboplastin Time Stat Prothrombin Time INR Stat Troponin I Stat EKG-12 Lead Stat 11/13/20 12:30 XR chest 1V Stat 11/13/20 15:12 COVID19 -Nasal swab/Pre-Proc Stat Reevaluation(s) Reevaluation #1: Reviewed results with patient. Understands for abundant of caution and for balance of his workup to be transfer to [facility] again. Time: 14:59 Consultations Consultation #1: Spoke with Emma Sawyer, nurse practitioner, for Dr. Juan Ramon Hoyos, cardiology. Agrees patient should be transferred for further evaluation through hospitalist. Was scheduled for echocardiogram Holter monitor and pulmonary function test as outpatient. Since patient's symptoms have worsened. Recommends admission/transfer [facility] Time: 14:51 Consultation #2: Spoke with [facility] hospitalist, Dr. jayda Dubois, will accept patient Time: 15:08 Vital Signs Vital signs: Vital Signs - 8 hr 11/13/20 12:20 11/13/20 12:21 11/13/20 12:23 Temperature 97.9 F Pulse Rate 75 79 80 Pulse Rate [Orthostatic Lying] Pulse Rate [Orthostatic Sitting] Pulse Rate [Orthostatic Standing] Respiratory Rate 18 18 Blood Pressure 175/83 H 175/83 H Blood Pressure [Orthostatic Lying] Blood Pressure [Orthostatic Sitting] Blood Pressure [Orthostatic Standing] Pulse Oximetry 99 99 100 11/13/20 12:30 11/13/20 13:00 11/13/20 13:12 Temperature Pulse Rate 80 94 H 83 Pulse Rate [Orthostatic Lying] Pulse Rate [Orthostatic Sitting] Pulse Rate [Orthostatic Standing] Respiratory Rate 16 24 21 Blood Pressure 137/87 Blood Pressure [Orthostatic Lying] Blood Pressure [Orthostatic Sitting] Blood Pressure [Orthostatic Standing] Pulse Oximetry 99 97 97 11/13/20 13:30 11/13/20 14:00 11/13/20 14:30 Temperature Pulse Rate 80 76 75 Pulse Rate [Orthostatic Lying] Pulse Rate [Orthostatic Sitting] Pulse Rate [Orthostatic Standing] Respiratory Rate 15 19 19 Blood Pressure 134/82 153/74 H 153/72 H Blood Pressure [Orthostatic Lying] Blood Pressure [Orthostatic Sitting] Blood Pressure [Orthostatic Standing] Pulse Oximetry 95 96 95 11/13/20 14:56 Temperature Pulse Rate Pulse Rate [Orthostatic Lying] 80 Pulse Rate [Orthostatic Sitting] 93 H Pulse Rate [Orthostatic Standing] 103 H Respiratory Rate Blood Pressure Blood Pressure [Orthostatic Lying] 159/77 H Blood Pressure [Orthostatic Sitting] 146/87 H Blood Pressure [Orthostatic Standing] 135/66 Pulse Oximetry MDM - Dizziness Differential Diagnosis Differential diagnosis: Likely orthostatic hypotension and other (Anemia/dehydration/arrhythmia) Medical Records Attestation: I reviewed the patient's medical records. Lab Data Attestation: I reviewed the patient's lab results. Result diagrams: 11/13/20 12:25 11/13/20 12:25 Labs: Lab Results 11/13/20 11/13/20 11/13/20 Range/Units 12:25 12:25 12:25 WBC 6.0 (4.5-11.0) X10^3/uL RBC 4.78 (4.5-5.9) X10^6/uL Hgb 15.1 (13.5-17.5) g/dL Hct 45.0 (41-53) % MCV 94.3 (80-100) fL MCH 31.6 (26-34) PG MCHC 33.5 (30-36) % RDW 15.1 H (11.6-14.8) % Plt Count 151 (150-400) X10^3/uL Neut % (Auto) 74.1 (50-75) % Lymph % (Auto) 18.8 L (25-40) % Mesa % (Auto) 5.9 (3-14) % Eos % (Auto) 0.7 L (2-4) % Baso % (Auto) 0.5 (0-2) % Neut # (Auto) 4400 (2974-3130) /uL Lymph # (Auto) 1100 (4035-9361) /uL Mesa # (Auto) 400 (0-900) /uL Eos # (Auto) 0 (0-450) /uL Baso # (Auto) 0 (0-100) /uL PT 13.8 H (10.1-12.7) SECONDS INR 1.2 (0.9-1.3) APTT 40 H D (26.4-36.2) SECONDS Sodium 137 (137-145) mmol/L Potassium 4.3 (3.4-5.1) mmol/L Chloride 106 (98-107) mmol/L Carbon Dioxide 23 (22-32) mmol/L BUN 13 (9-20) mg/dL Creatinine 0.77 (0.66-1.25) mg/dL Estimated GFR > 60.0 (>60) mL/min BUN/Creatinine Ratio 16.9 (6-22) Glucose 101 (80-110) mg/dL Calcium 9.5 (8.4-10.2) mg/dL Total Bilirubin 0.7 (0.2-1.3) mg/dL AST 34 (17-59) IU/L ALT 40 (<50) IU/L Alkaline Phosphatase 97 (38-126) U/L Troponin I < 0.012 (0.01-0.034) ng/mL Total Protein 7.3 (6.3-8.2) g/dL Albumin 4.2 (3.5-5.0) g/dL Globulin 3.1 (1.7-4.1) g/dL Albumin/Globulin Ratio 1.4 (1.0-2.8) SARS-CoV-2 (PCR) (Negative) 11/13/20 Range/Units 15:14 WBC (4.5-11.0) X10^3/uL RBC (4.5-5.9) X10^6/uL Hgb (13.5-17.5) g/dL Hct (41-53) % MCV (80-100) fL MCH (26-34) PG MCHC (30-36) % RDW (11.6-14.8) % Plt Count (150-400) X10^3/uL Neut % (Auto) (50-75) % Lymph % (Auto) (25-40) % Mesa % (Auto) (3-14) % Eos % (Auto) (2-4) % Baso % (Auto) (0-2) % Neut # (Auto) (1588-6910) /uL Lymph # (Auto) (5374-6868) /uL Mesa # (Auto) (0-900) /uL Eos # (Auto) (0-450) /uL Baso # (Auto) (0-100) /uL PT (10.1-12.7) SECONDS INR (0.9-1.3) APTT (26.4-36.2) SECONDS Sodium (137-145) mmol/L Potassium (3.4-5.1) mmol/L Chloride (98-107) mmol/L Carbon Dioxide (22-32) mmol/L BUN (9-20) mg/dL Creatinine (0.66-1.25) mg/dL Estimated GFR (>60) mL/min BUN/Creatinine Ratio (6-22) Glucose (80-110) mg/dL Calcium (8.4-10.2) mg/dL Total Bilirubin (0.2-1.3) mg/dL AST (17-59) IU/L ALT (<50) IU/L Alkaline Phosphatase (38-126) U/L Troponin I (0.01-0.034) ng/mL Total Protein (6.3-8.2) g/dL Albumin (3.5-5.0) g/dL Globulin (1.7-4.1) g/dL Albumin/Globulin Ratio (1.0-2.8) SARS-CoV-2 (PCR) Negative (Negative) Urine Dip Bedside Urine Glucose Negative Bedside Urine Bilirubin - Negative Bedside Urine Ketone - Negative Urine Specific Coleman 1.015 Bedside Urine Occult Blood - Negative Bedside Urine pH 7.0 Bedside Urine Protein - Negative Bedside Urine Urobilinogen - Negative Bedside Urine Nitrite - Negative Bedside Urine Leukocytes - Negative Esterase Imaging Data Chest x-ray: Radiologist's Impression: [address] [id number] ReportSigned Patient: [facility]#: [id number]: 1950Acct:[id number]/Sex: 70 / MDate of Service: 11/13/20Loc: EDAccession Number: [id number] Procedure: XR chest 1V Ordering Provider: Mark Anthony Sethi MD PROCEDURE: XR CHEST 1V INDICATIONS: Dyspnea TECHNIQUE: One view of the chest was acquired. COMPARISON: [facility], CR, XR CHEST 1V, 10/09/2020, 14:46. [facility], CR, XR CHEST 2V, 02/27/2019, 15:41. [facility], CT, CT ANGIO CHEST PE PROTOCOL, 10/09/2020, 15:03. FINDINGS: Surgical changes and devices: None. Lungs and pleura: On this semiupright portable chest examination, no large pneumothorax or large pleural effusions are seen. No focal infiltrates are seen. Mediastinum: Mediastinal contours appear normal. Heart size is normal. Bones and chest wall: No suspicious bony lesions. Overlying soft tissues appear unremarkable. IMPRESSION: Portable chest within normal limits. Dictated by: Alexander Hernandez M.D. on 11/13/2020 at 13:07 Approved by: Alexander Hernandez M.D. on 11/13/2020 at 13:08 ECG Data Attestation: I personally reviewed and interpreted this ECG as follows: Interpretation: Sinus rhythm with frequent premature ventricular complexes. Right bundle-branch block. No ST elevation or depression. MDM Narrative Medical decision making narrative: Appropriate for transfer. I reviewed patient's record with cardiology at [facility]. Patient stable at this time. Will need echocardiogram and continued rhythm monitoring. Patient agrees no CT scan imaging of the chest at this time. No no no complaints of dyspnea. No chest pain. Patient already anticoagulated Discharge Plan Departure Patient Disposition: [facility] Clinical Impression: Dizziness Prescriptions: No Action albuterol sulfate 90 mcg/actuation HFA aerosol inhaler 2 puff inhalation Q4-6H PRNRF: 0 apixaban 5 mg tablet 5 mg PO BID RF: 0 acetaminophen [Tylenol] 325 mg capsule 650 mg PO QID PRN (Reason: pain) Qty: 60 RF: 0 One-A-Day Proactive 65 Plus 200 mcg tablet PO RF: 0 cholecalciferol (vitamin D3) 25 mcg (1,000 unit) capsule 25 mcg PO DAILY RF: 0 potassium gluconate 550 mg (90 mg) tablet 550 mg PO DAILY RF: 0 Citrucel 500 mg tablet 500 mg PO DAILY RF: 0 tamsulosin 0.4 mg capsule 0.8 mg PO BEDTIME Qty: 180 RF: 3 Referrals: Franky Liu MD [Primary Care Provider] -
[2020-11-13 13:02] LABS: Add Manual Diff / Slide Review NO; Basophils Absolute Auto 0 /uL (0-100); Basophils Percent Auto 0.5 % (0-2); Eosinophils Absolute Auto 0 /uL (0-450); Eosinophils Percent Auto 0.7 % (2-4); Hemoglobin 15.1 g/dL (13.5-17.5); Lymphocytes Absolute Auto 1100 /uL (1100-4500); Lymphocytes Percent Auto 18.8 % (25-40); Mean Corpuscular HGB Conc 33.5 % (30-36); Mean Corpuscular Hemoglobin 31.6 PG (26-34); Mean Corpuscular Volume 94.3 fL (80-100); Monocytes Absolute Auto 400 /uL (0-900); Monocytes Percent Auto 5.9 % (3-14); Neutrophils Absolute Auto 4400 /uL (1500-7000); Neutrophils Percent Auto 74.1 % (50-75); Platelet Count 151 X10^3/uL (150-400); Red Blood Cell Count 4.78 X10^6/uL (4.5-5.9); Red Cell Distribution Width 15.1 % (11.6-14.8)
[2020-11-13 13:18] LABS: INR 1.2 (0.9-1.3); Prothrombin Time 13.8 SECONDS (10.1-12.7)
[2020-11-13 13:20] LABS: Alanine Aminotransferase 40 IU/L (<50); Albumin 4.2 g/dL (3.5-5.0); Albumin Globulin Ratio 1.4 (1.0-2.8); Alkaline Phosphatase 97 U/L (38-126); Aspartate Aminotransferase 34 IU/L (17-59); BUN Creatinine Ratio 16.9 (6-22); Bilirubin Total 0.7 mg/dL (0.2-1.3); Blood Urea Nitrogen 13 mg/dL (9-20); Calcium 9.5 mg/dL (8.4-10.2); Carbon Dioxide 23 mmol/L (22-32); Chloride 106 mmol/L (98-107); Estimated Glomerular Filt Rate > 60.0 mL/min (>60); Globulin 3.1 g/dL (1.7-4.1); Glucose 101 mg/dL (80-110); HEMOLYSIS 17 (0-50); Potassium 4.3 mmol/L (3.4-5.1); Sodium 137 mmol/L (137-145); Total Protein 7.3 g/dL (6.3-8.2)
[2020-11-13 13:21] LABS: PTT Partial Thromboplastin Tim 40 SECONDS (26.4-36.2)
[2020-11-13 13:32] LABS: Troponin I < 0.012 ng/mL (0.01-0.034)
--- NOTE | 2020-11-13 15:02 | PC.NURSE ---
Pt denies dizziness with rest in bed. Orthostatic BPs done. Ambulation trial also. Pt denies dizziness with position change and ambulation. States I was dizzy just sitting in the chair at home and then worse when walking and now I feel fine.
[2020-11-13 16:19] LABS: COVID19 -Nasal RAPID Negative (Negative)
== END 2020-11-13 17:30 | disposition short-term general hospital (02) ==
PROVIDERS: Emergency Provider Emergency Medicine; PCP Student in an Organized Health Care Education/Training Program
DX: R42 Dizziness and giddiness (principal); R06.00 Dyspnea, unspecified; Z79.01 Long term (current) use of anticoagulants; Z20.822 Contact with and (suspected) exposure to COVID-19
CPT/HCPCS: 36415; 51798; 71045; 80053; 81003; 84484; 85025; 85610; 85730; 87635; 93005; 99284; C9803

== ENCOUNTER 2020-11-15 12:49 | Emergency (ER) | payer MEDICARE, OTHER, SELFPAY ==
[2020-11-10 16:25] VITALS: PULSE 126; RESP 22; O2SAT 93; BMI 31.6
[2020-11-15 12:59] VITALS: BP 188/110; PULSE 117; RESP 18; TEMP 36.5; O2SAT 98; BMI 28.2
[2020-11-15] MEDS: LIDOCAINE 2% (GLYDO) 6 ML GEL TOP (14:08)
[2020-11-15 14:12] VITALS: BP 146/91; PULSE 89; RESP 16; O2SAT 97
[2020-11-15 14:25] LABS: Bacteria Urine None Seen
[2020-11-15 14:27] LABS: Appearance Urine UA SL CLOUDY; Bilirubin Urine UA NEGATIVE (NEGATIVE); Color Urine UA YELLOW; Glucose Urine UA NEGATIVE (Negative); Ketones Urine UA NEGATIVE (NEGATIVE); Leukocyte Esterase Urine UA TRACE (NEGATIVE); Nitrite Urine UA NEGATIVE (Negative); Occult Blood Urine UA 3+ (Negative); Protein Urine UA NEGATIVE (Negative); Urobilinogen Urine UA 0.2 E.U./dL (0.2)
--- NOTE | 2020-11-15 14:27 | PC.NURSE ---
Had nunez removed five days ago, unable to urinate since last night.
[2020-11-15 14:43] LABS: RBC Urine 30-100/HPF (0-5/HPF); WBC Urine 1-5/HPF (0-5/HPF)
[2020-11-15 14:44] LABS: Culture Indicated Urine Specimen Cultured; Squamous Epithelial Cell Urine 0-1 /HPF (0-5/HPF)
--- NOTE | 2020-11-15 14:51 | ED.MALEGU ---
HPI - Male Genitourinary <XANDER José - Last Filed: 11/15/20 15:03> General Chief complaint: Urogenital-Male Stated complaint: Urine Retension Time Seen by Provider: 11/15/20 13:47 Source: patient Mode of arrival: Ambulatory Limitations: no limitations History of Present Illness HPI Narrative: This is a 70-year-old male, nonsmoker, who has past medical history significant for BPH, urinary retention, recent perforated appendicitis with surgery in 09/19/20 with complications as pulmonary embolism which caused cardiac arrest and transfer to [facility] and hospitalized for a week. She is currently taking Eliquis. Patient presents to ED today with other episode of urinary retention since 4:00 a.m. this morning. Patient was hospitalized for appendectomy developed acute urinary retention and had Nunez in placed at that time. Nunez was removed 5 days ago on Sunday and he was doing relatively well with output 150-200 mL at a time until this morning at 4:00 a.m.. Patient reports noticed urinary dribbling and bladder pressure since then. Patient denies fever, chills, nausea or vomiting. Patient also was evaluated in ED 2 days ago for dizziness and was transferred to [facility]. Patient stop taking Flomax after a month after it was recommended during last admission to [place] since this may cause dizziness. Patient is currently waiting for echocardiogram result and to schedule MRI test of heart. After the triage, 18fr Coude foely catheter was inplaced by nursing staff and drained about 1100 mL of yellow urine in the nunez bag. Patient denies chest pain, breathing difficulty, lightheadedness, fever, abdominal pain, back pain at this time. PCP Dr. Liu and Dr. Humphrey is his urologist. Related Data Home Medications Medication Instructions Recorded Confirmed cholecalciferol (vitamin D3) 25 25 mcg PO DAILY 09/23/20 10/28/20 mcg (1,000 unit) capsule methylcellulose (laxative) 500 mg 500 mg PO DAILY 09/23/20 10/28/20 tablet multivitamin with calcium and tab PO 09/23/20 10/28/20 minerals-folic acid 200 mcg tablet potassium gluconate 550 mg (90 mg) 550 mg PO DAILY 09/23/20 10/28/20 tablet albuterol sulfate 90 mcg/actuation 2 puff INHALATION Q4-6H PRN 10/26/20 10/28/20 aerosol inhaler apixaban 5 mg tablet 5 mg PO BID 10/26/20 10/28/20 Previous Rx's Medication Instructions Recorded acetaminophen [Tylenol] 650 mg PO QID PRN #60 cap 09/17/20 tamsulosin 0.4 mg capsule 0.8 mg PO BEDTIME #180 cap 10/06/20 Allergies Allergy/AdvReac Type Severity Reaction Status Date / Time No Known Drug Allergies Allergy Verified 11/13/20 12:25 Review of Systems <XANDER José - Last Filed: 11/15/20 15:03> Review of Systems Narrative: General: Denies fever, chills, fatigue, malaise, sweats. HEENT: Denies sinus pain, ear pain, sore throat, difficulty swallowing, dizziness. Respiratory: Denies dyspnea, cough, wheezing, hemoptysis, sputum. Cardiovascular: Denies chest pain, palpitations, orthopnea, edema. Gastrointestinal: Denies nausea, vomiting, abdominal pain, diarrhea, constipation, melena. : See HPI Musculoskeletal: Denies weakness, joint pain or bony pain. Skin: Denies rash, skin lesions, or other. Neurologic: Denies weakness, headache, numbness, change in speech, confusion, seizures, incoordination. Psychiatric: No concerning psychosocial issues. 12-point review of systems is negative except for those stated above. Patient History <XANDER José - Last Filed: 11/15/20 15:03> Medical History Acute massive pulmonary embolism BPH w urinary obs/LUTS Cardiogenic shock Chickenpox Elevated PSA (Unknown) Erectile dysfunction (Unknown) Factor 5 Leiden mutation, heterozygous History of elevated PSA Measles Surgical History History of appendectomy History of dental surgery (Unknown) Hx of hernia repair (Unknown) Family History Father Heart disease Grandfather Heart disease Grandmother Heart disease Sister Seizure disorder Family/Other Diabetes mellitus Family/Other Seizure disorder Social History marital status: household members: spouse occupational status: unemployed Smoking Status: Never smoker alcohol intake: never substance use type: does not use caffeine: No Smoking Status: Never smoker alcohol intake frequency: holidays/special occasions only Substance Use Type: does not use Exam <XANDER José - Last Filed: 11/15/20 15:03> Narrative Exam Narrative: General appearance: well developed, well nourished, in no acute distress. Head: normocephalic, atraumatic, no scalp lesions, non-tender. ENT: Hearing grossly intact. Airway patent. Neck/Thyroid: neck supple, full range of motion, no visible masses or meningeal signs. No JVD, non-tender without lymphadenopathy. Skin: no suspicious rashes, lesions over visible areas. Warm and dry and appropriate color for ethnicity. Heart: no clubbing, no cyanosis, no edema. S1 and S2 normal. RRR w/o murmurs, clicks, or bruits. Lungs: Breathing even and unlabored. No stridor. No accessory muscles used. Able to speak in full sentences. Chest: normal shape and expansion. Abdomen: non-obese, non-distended. Neurologic: alert and oriented. Cognitive exam, VISUAL DEVELOPER and PNS grossly intact on informal exam. Psych: good eye contact, normal affect. Initial Vital Signs Initial Vital Signs: Vital Signs Temperature 97.7 F 11/15/20 12:59 Pulse Rate 117 H 11/15/20 12:59 Respiratory Rate 18 11/15/20 12:59 Blood Pressure 188/110 H 11/15/20 12:59 Pulse Oximetry 98 11/15/20 12:59 <Kristan Gonsales DO - Last Filed: 11/15/20 20:03> Initial Vital Signs Initial Vital Signs: Vital Signs Temperature 97.7 F 11/15/20 12:59 Pulse Rate 117 H 11/15/20 12:59 Respiratory Rate 18 11/15/20 12:59 Blood Pressure 188/110 H 11/15/20 12:59 Pulse Oximetry 98 11/15/20 12:59 Scores <XANDER José - Last Filed: 11/15/20 15:03> GCS [place] coma scale eye opening: Spontaneous [place] coma scale verbal response: Orientated [place] coma scale motor response: Obey commands [place] coma scale total score: 15 Course <XANDER José - Last Filed: 11/15/20 15:03> Orders Ordered: ED Orders 11/15/20 14:20 Urinalysis and Microscopic Stat Urine Culture Stat Discontinued Medications Lidocaine HCl (Lidocaine 2% (Glydo) 6 Ml Gel) 6 ml TOP NOW ONE Stop: 11/15/20 13:07 Last Admin: 11/15/20 14:08 Dose: 6 ml Documented by: NAYANA Vital Signs Vital signs: Vital Signs - 8 hr 11/15/20 12:59 11/15/20 14:12 Temperature 97.7 F Pulse Rate 117 H 89 Respiratory Rate 18 16 Blood Pressure 188/110 H 146/91 H Pulse Oximetry 98 97 <Kristan Gonsales DO - Last Filed: 11/15/20 20:03> Orders Ordered: ED Orders 11/15/20 14:20 Urinalysis and Microscopic Stat Urine Culture Stat Discontinued Medications Lidocaine HCl (Lidocaine 2% (Glydo) 6 Ml Gel) 6 ml TOP NOW ONE Stop: 11/15/20 13:07 Last Admin: 11/15/20 14:08 Dose: 6 ml Documented by: NAYANA Vital Signs Vital signs: Vital Signs - 8 hr 11/15/20 12:59 11/15/20 14:12 Temperature 97.7 F Pulse Rate 117 H 89 Respiratory Rate 18 16 Blood Pressure 188/110 H 146/91 H Pulse Oximetry 98 97 MDM - Male Genitourinary <XANDER José - Last Filed: 11/15/20 15:03> Differential Diagnosis Differential diagnosis: Likely urinary tract infection and acute retention of urine Medical Records Attestation: I reviewed the patient's medical records. Lab Data Attestation: I reviewed the patient's lab results. Labs: Lab Results 11/15/20 Range/Units 14:20 Urine Color Yellow Urine Appearance Sl cloudy Urine pH 7.0 (4.5-8.0) Ur Specific [place] 1.010 (1.000-1.035) Urine Protein Negative (Negative) Urine Glucose (UA) Negative (Negative) g/dL Urine Ketones Negative (NEGATIVE) Urine Occult Blood 3+ H (Negative) Urine Nitrate Negative (Negative) Urine Bilirubin Negative (NEGATIVE) Urine Urobilinogen 0.2 (0.2) E.U./dL Ur Leukocyte Esterase Trace H (NEGATIVE) Urine RBC 30-100/hpf H (0-5/HPF) Urine WBC 1-5/hpf (0-5/HPF) Ur Squamous Epith Cells 0-1 /hpf (0-5/HPF) Urine Bacteria None seen (None) Ur Culture Indicated? Specimen cultured MDM Narrative Medical decision making narrative: This is a 70-year-old gentleman who presents to ED with acute urinary retention after Nunez catheter was discontinued [address] Humphrey. Patient developed acute urinary retention during postop period For appendectomy in the hospital. He had an eventful recovery developing pulmonary embolism and cardiogenic shock and was in the hospital at [facility] for 1 week. Patient was also evaluated 2 days ago for dizziness and was transferred to [facility] and hospitalized for 1 day. This time his routine medication Flomax has been discontinued yesterday contributing patient's dizziness. Eighteen [place] Coude nunez catheter was inplaced during triage. UA test shows 30-100 hpf RBC and trace leuks without nitrate. Urine culture is pending. Patient is discharged to home with the back which she prefers to use instead of leg bag. Patient advised to contact Dr. Humphrey to discuss recurring urinary retention and stop using Flomax prior to recurring urinary retention. Return precautions discussed and he verbalized understanding and agreement with the treatment plan. <Kristan Gonsales, DO - Last Filed: 11/15/20 20:03> Lab Data Labs: Lab Results 11/15/20 Range/Units 14:20 Urine Color Yellow Urine Appearance Sl cloudy Urine pH 7.0 (4.5-8.0) Ur Specific [place] 1.010 (1.000-1.035) Urine Protein Negative (Negative) Urine Glucose (UA) Negative (Negative) g/dL Urine Ketones Negative (NEGATIVE) Urine Occult Blood 3+ H (Negative) Urine Nitrate Negative (Negative) Urine Bilirubin Negative (NEGATIVE) Urine Urobilinogen 0.2 (0.2) E.U./dL Ur Leukocyte Esterase Trace H (NEGATIVE) Urine RBC 30-100/hpf H (0-5/HPF) Urine WBC 1-5/hpf (0-5/HPF) Ur Squamous Epith Cells 0-1 /hpf (0-5/HPF) Urine Bacteria None seen (None) Ur Culture Indicated? Specimen cultured Discharge Plan Departure Patient Disposition: Home Clinical Impression: Urinary retention Instructions: DI for Urinary Retention in Men Activity Restrictions/Additional Instructions: You have been diagnosed with [urinary retention. Nunez catheter has been inserted. Urine culture is pending.]. What to do: *Take your medications as directed. *Follow up with your primary care provider in 2-3 days, call for an appointment. Let them know you were seen in the ED and that we asked you to be seen in follow up. Please call Dr. Humphrey tomorrow to inform about urinary retention and you have stop taking Flomax per laundry worker yesterday. *Return to ED if you have any new, worsening, or concerning symptoms, such as [chest pain, breathing difficulty, unable to tolerate fluids, near syncope, fever, abdominal pain, pain, or any acute concerns]. Prescriptions: No Action albuterol sulfate 90 mcg/actuation HFA aerosol inhaler 2 puff inhalation Q4-6H PRNRF: 0 apixaban 5 mg tablet 5 mg PO BID RF: 0 acetaminophen [Tylenol] 325 mg capsule 650 mg PO QID PRN (Reason: pain) Qty: 60 RF: 0 One-A-Day Proactive 65 Plus 200 mcg tablet PO RF: 0 cholecalciferol (vitamin D3) 25 mcg (1,000 unit) capsule 25 mcg PO DAILY RF: 0 potassium gluconate 550 mg (90 mg) tablet 550 mg PO DAILY RF: 0 Citrucel 500 mg tablet 500 mg PO DAILY RF: 0 tamsulosin 0.4 mg capsule 0.8 mg PO BEDTIME Qty: 180 RF: 3 Referrals: Franky Liu MD [Primary Care Provider] - Solitario Humphrey MD [Physician] - <Kristan Gonsales DO - Last Filed: 11/15/20 20:03> Cosign ED Attending Bhanuature Attestation: I was immediately available in the department for consultation. Documentation has been reviewed.
--- NOTE | 2020-11-15 14:59 | PC.NURSE ---
Upon discharge patient reports some discomfort at tip of penis. Evaluated penis, appears within normal limits. No bleeding or discharge. Galaviz in place appropriately secured to left leg.
== END 2020-11-15 14:59 | disposition home or self-care (01) ==
PROVIDERS: Emergency Provider Nurse Practitioner Family; PCP Student in an Organized Health Care Education/Training Program
DX: R33.9 Retention of urine, unspecified (principal)
CPT/HCPCS: 51702; 81001; 87086; 99283

== ENCOUNTER → 2020-12-01 09:30 | Outpatient (CLI) | payer MEDICARE, OTHER, SELFPAY ==
[2020-11-10 16:25] VITALS: PULSE 126; RESP 22; O2SAT 93; BMI 31.6
[2020-12-01 10:55] LABS: COVID19 -Nasal RAPID Negative (Negative)
== END ==
PROVIDERS: PCP Student in an Organized Health Care Education/Training Program; Referring Provider Internal Medicine; Visit Provider Internal Medicine
DX: Z20.822 Contact with and (suspected) exposure to COVID-19 (principal)
CPT/HCPCS: 87635; C9803

== ENCOUNTER → 2020-12-02 10:55 | Outpatient (CLI) | payer MEDICARE, OTHER, SELFPAY ==
[2020-11-10 16:25] VITALS: PULSE 126; RESP 22; O2SAT 93; BMI 31.6
--- NOTE | 2020-12-10 08:53 | PM.PFT.1 ---
Pulmonary Function Test Referral & Results Date Patient Seen: 12/02/20 Requesting provider: Frantz Hoyos Results: The spirometry demonstrates an FVC of 4.0 L which is 78% of predicted. The FEV1 was measured at 2.99 L which is 79% of predicted. The FEV1/FVC ratio was 75 which is 102% of predicted. Following the administration of bronchodilator there was a 28% improvement in FEF 25-75%. Lung volumes show an SVC of 4.20 L which is 81% of predicted. The diffusing capacity was measured at 33.41 which is 88% of predicted. The maximum voluntary ventilation was normal Interpretation: This study demonstrates perhaps very mild obstructive lung disease based on minimal reduction FEV1 although FEV1/FVC ratio was preserved there is some minimal evidence of benefit following bronchodilator in small airway flow as above based on improvement in FEF 25-75%. However review of patient's flow volume loop does not support the diagnosis of obstructive lung disease Clinical correlation suggested
== END ==
PROVIDERS: PCP Student in an Organized Health Care Education/Training Program; Referring Provider Internal Medicine Cardiovascular Disease; Visit Provider Internal Medicine Cardiovascular Disease
DX: I46.9 Cardiac arrest, cause unspecified (principal); I26.09 Other pulmonary embolism with acute cor pulmonale; I49.3 Ventricular premature depolarization; J98.8 Other specified respiratory disorders; I45.10 Unspecified right bundle-branch block; R06.02 Shortness of breath
CPT/HCPCS: 94060; 94726; 94729

== ENCOUNTER 2020-12-09 18:49 | Emergency (ER) | payer MEDICARE, OTHER, SELFPAY ==
[2020-11-10 16:25] VITALS: PULSE 126; RESP 22; O2SAT 93; BMI 31.6
[2020-12-09 18:58] VITALS: BP 190/140; PULSE 96; RESP 15; TEMP 36.8; O2SAT 97; BMI 28.2
--- NOTE | 2020-12-09 19:36 | ED.MALEGU ---
HPI - Male Genitourinary General Chief complaint: Urogenital-Male Stated complaint: Urine Retention, Wants a Bladder Scan Time Seen by Provider: 12/09/20 19:36 Source: patient Mode of arrival: Ambulatory Limitations: no limitations History of Present Illness HPI Narrative: 70-year-old man recently seen at the [facility] with intermittent urinary retention in instructed on self catheterization. His 1st attempt was last night in volume of the urine was 100-200cc patient comes in today with pelvic fullness requesting a bladder scan. He believes he is constipated and has taken measures to correct this. He wants to have a bit of reassurance that he does not have a acutely distended bladder or need for self catheterization today. Related Data Home Medications Medication Instructions Recorded Confirmed cholecalciferol (vitamin D3) 25 25 mcg PO DAILY 09/23/20 11/18/20 mcg (1,000 unit) capsule multivitamin with calcium and 1 tab PO DAILY 09/23/20 11/18/20 minerals-folic acid 200 mcg tablet potassium gluconate 550 mg (90 mg) 550 mg PO DAILY 09/23/20 11/18/20 tablet melatonin 5 mg PO DAILY 11/17/20 11/18/20 Previous Rx's Medication Instructions Recorded acetaminophen [Tylenol] 650 mg PO QID PRN #60 cap 09/17/20 apixaban 5 mg tablet 5 mg PO BID #180 tab 11/17/20 finasteride 5 mg tablet 5 mg PO DAILY #90 tab 11/18/20 Allergies Allergy/AdvReac Type Severity Reaction Status Date / Time No Known Drug Allergies Allergy Verified 12/09/20 18:58 Review of Systems Review of Systems Narrative: No fevers, dysuria, chest pain or dyspnea. Patient History Medical History Acute massive pulmonary embolism BPH w urinary obs/LUTS Cardiogenic shock Chickenpox Elevated PSA (Unknown) Erectile dysfunction (Unknown) Factor 5 Leiden mutation, heterozygous History of elevated PSA Measles Surgical History History of appendectomy History of dental surgery (Unknown) Hx of hernia repair (Unknown) Family History Father Heart disease Grandfather Heart disease Grandmother Heart disease Sister Seizure disorder Family/Other Diabetes mellitus Family/Other Seizure disorder Social History marital status: household members: spouse occupational status: unemployed Smoking Status: Never smoker alcohol intake: never substance use type: does not use caffeine: No Smoking Status: Never smoker alcohol intake frequency: holidays/special occasions only Substance Use Type: does not use Exam Narrative Exam Narrative: General: Alert appropriate in no acute distress Respiratory: Able to speak in full sentences, no obvious respiratory distress Skin: No obvious rashes, warm and dry Neurologic: Grossly intact no obvious asymmetries or abnormalities Psych: appropriate insight and affect, cooperative Bladder scan shows 130 cc of urine in the bladder Initial Vital Signs Initial Vital Signs: Vital Signs Temperature 98.2 F 12/09/20 18:58 Pulse Rate 96 H 12/09/20 18:58 Respiratory Rate 15 12/09/20 18:58 Blood Pressure 190/140 H 12/09/20 18:58 Pulse Oximetry 97 12/09/20 18:58 Course Vital Signs Vital signs: Vital Signs - 8 hr 12/09/20 18:58 Temperature 98.2 F Pulse Rate 96 H Respiratory Rate 15 Blood Pressure 190/140 H Pulse Oximetry 97 MDM - Male Genitourinary Medical Records Attestation: I reviewed the patient's medical records. Lab Data Attestation: I reviewed the patient's lab results. Labs: Urine Dip Bedside Urine Glucose Negative Bedside Urine Bilirubin - Negative Bedside Urine Ketone +++ 80 Urine Specific [place] 1.030 Bedside Urine Occult Blood +++ Bedside Urine pH 6.0 Bedside Urine Protein - Negative Bedside Urine Urobilinogen - Negative Bedside Urine Nitrite - Negative Bedside Urine Leukocytes - Negative Esterase [facility] Narrative Medical decision making narrative: 70-year-old gentleman with recent urinary retention issues and now with 24 hours of constipation. He is reassured that the pressure he is feeling his pelvis is more likely stool than a distended bladder and he does not need to do a self catheterization at this point. He was reassured and safe for home discharge Discharge Plan Departure Patient Disposition: Home Clinical Impression: Acute retention of urine Instructions: How to Catheterize Yourself -- for Men Prescriptions: No Action apixaban 5 mg tablet 5 mg PO BID Qty: 180 RF: 3 melatonin 5 mg Tablet 5 mg PO DAILY RF: 0 acetaminophen [Tylenol] 325 mg capsule 650 mg PO QID PRN (Reason: pain) Qty: 60 RF: 0 One-A-Day Proactive 65 Plus 200 mcg tablet 1 tab PO DAILY RF: 0 cholecalciferol (vitamin D3) 25 mcg (1,000 unit) capsule 25 mcg PO DAILY RF: 0 potassium gluconate 550 mg (90 mg) tablet 550 mg PO DAILY RF: 0 finasteride 5 mg tablet 5 mg PO DAILY Qty: 90 RF: 3 Referrals: Franky Liu MD [Primary Care Provider] -
== END 2020-12-09 19:40 | disposition home or self-care (01) ==
PROVIDERS: Emergency Provider Emergency Medicine; PCP Student in an Organized Health Care Education/Training Program
DX: R33.9 Retention of urine, unspecified (principal)
CPT/HCPCS: 81003; 99281; 99282

== ENCOUNTER → 2021-03-21 10:31 | Outpatient (CLI) | payer MEDICARE, OTHER, SELFPAY ==
[2020-11-10 16:25] VITALS: PULSE 126; RESP 22; O2SAT 93; BMI 31.6
[2021-03-21 11:22] LABS: Add Manual Diff / Slide Review NO; Basophils Absolute Auto 0 /uL (0-100); Basophils Percent Auto 0.7 % (0-2); Eosinophils Absolute Auto 200 /uL (0-450); Hematocrit 46.8 % (41-53); Hemoglobin 15.6 g/dL (13.5-17.5); Lymphocytes Absolute Auto 1500 /uL (1100-4500); Mean Corpuscular HGB Conc 33.3 % (30-36); Mean Corpuscular Hemoglobin 30.6 PG (26-34); Monocytes Absolute Auto 400 /uL (0-900); Monocytes Percent Auto 6.8 % (3-14); Neutrophils Absolute Auto 3200 /uL (1500-7000); Neutrophils Percent Auto 61.5 % (50-75); Platelet Count 169 X10^3/uL (150-400); Red Blood Cell Count 5.08 X10^6/uL (4.5-5.9); Red Cell Distribution Width 13.9 % (11.6-14.8); White Blood Cell Count 5.3 X10^3/uL (4.5-11.0)
[2021-03-21 11:26] LABS: Alanine Aminotransferase 27 IU/L (<50); Albumin 4.2 g/dL (3.5-5.0); Albumin Globulin Ratio 1.4 (1.0-2.8); Alkaline Phosphatase 48 U/L (38-126); Aspartate Aminotransferase 25 IU/L (17-59); BUN Creatinine Ratio 22.1 (6-22); Bilirubin Total 0.6 mg/dL (0.2-1.3); Blood Urea Nitrogen 21 mg/dL (9-20); Calcium 9.2 mg/dL (8.4-10.2); Carbon Dioxide 31 mmol/L (22-32); Chloride 103 mmol/L (98-107); Estimated Glomerular Filt Rate > 60.0 mL/min (>60); Globulin 2.9 g/dL (1.7-4.1); Glucose 94 mg/dL (80-110); HEMOLYSIS < 15 (0-50); Potassium 4.4 mmol/L (3.4-5.1); Sodium 138 mmol/L (137-145); Total Protein 7.1 g/dL (6.3-8.2)
== END ==
PROVIDERS: PCP Student in an Organized Health Care Education/Training Program; Referring Provider Internal Medicine; Visit Provider Internal Medicine
DX: I26.99 Other pulmonary embolism without acute cor pulmonale (principal); R91.1 Solitary pulmonary nodule
CPT/HCPCS: 36415; 80053; 85025

== ENCOUNTER → 2021-03-21 10:35 | Outpatient (CLI) | payer MEDICARE, OTHER, SELFPAY ==
[2020-11-10 16:25] VITALS: PULSE 126; RESP 22; O2SAT 93; BMI 31.6
--- NOTE | 2021-03-21 10:40 | DI.CT.S_ITS ---
PROCEDURE: CT CHEST W CON INDICATIONS: Follow-up right lower lobe nodule TECHNIQUE: After the administration of intravenous contrast, 5 mm thick sections acquired from the pulmonary apices to the posterior costophrenic angles. 1 mm axial lung, 5 mm thick coronal and sagittal reformats and 7 mm axial MIP were acquired. For radiation dose reduction, the following was used: automated exposure control, adjustment of mA and/or kV according to patient size. COMPARISON: None. FINDINGS: Image quality: Excellent. Lungs and pleura: No airspace consolidation. Redemonstrated 5.8 mm noncalcified nodule in the right lower lobe (3-187). Minimal biapical pleural thickening/scarring. No pleural effusion or pneumothorax. Central and peripheral airways are patent and normal in caliber. Mediastinum: Heart size is normal. Coronary artery calcifications are seen. No pericardial effusion. No mediastinal or hilar adenopathy by size criteria. Thoracic aorta and central pulmonary arteries are normal in size. Esophagus is normal in caliber. Trace hiatal hernia. Bones and chest wall: No suspicious bony lesions. No vertebral body compression fractures. No axillary or supraclavicular adenopathy by size criteria. A 5.3 x 1.9 x 2.3 cm fat attenuation lesion is seen in the right oblique muscle, compatible intramuscular lipoma. The thyroid gland is homogeneous. Abdomen: Visualized upper abdominal solid organs appear normal. 3 cm hypoattenuating lesion in the right hepatic lobe, most consistent with a cyst. Upper abdominal bowel loops are normal in caliber. IMPRESSION: 1. No acute intrathoracic abnormality. 2. Stable subcentimeter, noncalcified nodule in the right lower lobe as detailed above. Dictated by: Timothy Adames M.D. on 03/21/2021 at 12:27 Approved by: Timothy Adames M.D. on 03/21/2021 at 12:42
== END ==
PROVIDERS: PCP Student in an Organized Health Care Education/Training Program; Referring Provider Student in an Organized Health Care Education/Training Program; Visit Provider Internal Medicine
DX: I26.99 Other pulmonary embolism without acute cor pulmonale (principal); R91.1 Solitary pulmonary nodule
CPT/HCPCS: 36415; 71260; 80053; 85025

== ENCOUNTER → 2021-06-29 08:28 | Outpatient (CLI) | payer MEDICARE, OTHER, SELFPAY ==
[2020-11-10 16:25] VITALS: PULSE 126; RESP 22; O2SAT 93; BMI 31.6
[2021-06-29 09:53] LABS: Add Manual Diff / Slide Review NO; Basophils Absolute Auto 0 /uL (0-100); Basophils Percent Auto 0.6 % (0-2); Eosinophils Absolute Auto 200 /uL (0-450); Hematocrit 49.6 % (41-53); Lymphocytes Absolute Auto 1700 /uL (1100-4500); Lymphocytes Percent Auto 31.1 % (25-40); Mean Corpuscular HGB Conc 34.2 % (30-36); Mean Corpuscular Hemoglobin 31.6 PG (26-34); Mean Corpuscular Volume 92.5 fL (80-100); Monocytes Absolute Auto 400 /uL (0-900); Monocytes Percent Auto 6.9 % (3-14); Neutrophils Absolute Auto 3200 /uL (1500-7000); Neutrophils Percent Auto 57.4 % (50-75); Platelet Count 168 X10^3/uL (150-400); Red Blood Cell Count 5.36 X10^6/uL (4.5-5.9); White Blood Cell Count 5.6 X10^3/uL (4.5-11.0)
[2021-06-29 10:04] LABS: BUN Creatinine Ratio 21.5 (6-22); Blood Urea Nitrogen 20 mg/dL (9-20); Calcium 9.4 mg/dL (8.4-10.2); Carbon Dioxide 24 mmol/L (22-32); Chloride 107 mmol/L (98-107); Cholesterol 198 mg/dL (140-199); Estimated Glomerular Filt Rate > 60.0 mL/min (>60); Glucose 95 mg/dL (80-110); HDL Cholesterol 43 mg/dL (40-60); HEMOLYSIS < 15 (0-50); LDL Cholesterol Calculated 131 mg/dL (<100); Magnesium 2.1 mg/dL (1.6-2.3); Potassium 4.2 mmol/L (3.4-5.1); Sodium 138 mmol/L (137-145); Triglycerides 120 mg/dL (35-150)
== END ==
PROVIDERS: PCP Student in an Organized Health Care Education/Training Program; Referring Provider Internal Medicine Cardiovascular Disease; Visit Provider Internal Medicine Cardiovascular Disease
DX: E78.5 Hyperlipidemia, unspecified (principal); I49.3 Ventricular premature depolarization
CPT/HCPCS: 36415; 80048; 80061; 83735; 85025

== ENCOUNTER 2021-09-16 22:09 | Emergency (ER) | payer MEDICARE, OTHER, SELFPAY ==
[2020-11-10 16:25] VITALS: PULSE 126; RESP 22; O2SAT 93; BMI 31.6
[2021-09-16] VITALS (8 sets, daily range): BP systolic 177–234; BP diastolic 97–165; PULSE 66–74; RESP 13–22; TEMP 37.1; O2SAT 94–99; BMI 29.5
--- NOTE | 2021-09-16 22:30 | DI.RAD.S_ITS ---
PROCEDURE: XR CHEST 1V INDICATIONS: chest pain TECHNIQUE: One view of the chest was acquired. COMPARISON: [facility], CR, XR CHEST 1V, 11/13/2020, 13:31. FINDINGS: Surgical changes and devices: None. Lungs and pleura: Lungs are clear. No pleural effusions or pneumothorax. Mediastinum: Mediastinal contours are unchanged. Heart size is enlarged. Bones and chest wall: No suspicious bony lesions. Overlying soft tissues appear unremarkable. IMPRESSION: 1. No acute cardiopulmonary disease. Dictated by: Tariq Castro M.D. on 09/16/2021 at 23:24 Approved by: Tariq Castro M.D. on 09/16/2021 at 23:25
[2021-09-16 22:40] LABS: Add Manual Diff / Slide Review NO; Basophils Absolute Auto 0 /uL (0-100); Basophils Percent Auto 0.6 % (0-2); Eosinophils Absolute Auto 400 /uL (0-450); Eosinophils Percent Auto 6.5 % (2-4); Hematocrit 47.6 % (41-53); Hemoglobin 16.5 g/dL (13.5-17.5); Lymphocytes Absolute Auto 2400 /uL (1100-4500); Lymphocytes Percent Auto 36.7 % (25-40); Mean Corpuscular HGB Conc 34.7 % (30-36); Mean Corpuscular Volume 92.2 fL (80-100); Monocytes Absolute Auto 500 /uL (0-900); Monocytes Percent Auto 8.3 % (3-14); Neutrophils Absolute Auto 3100 /uL (1500-7000); Neutrophils Percent Auto 47.9 % (50-75); Platelet Count 165 X10^3/uL (150-400); Red Blood Cell Count 5.16 X10^6/uL (4.5-5.9); Red Cell Distribution Width 13.2 % (11.6-14.8); White Blood Cell Count 6.4 X10^3/uL (4.5-11.0)
[2021-09-16 22:51] LABS: Alanine Aminotransferase 44 IU/L (<50); Albumin 4.4 g/dL (3.5-5.0); Albumin Globulin Ratio 1.4 (1.0-2.8); Alkaline Phosphatase 43 U/L (38-126); Aspartate Aminotransferase 31 IU/L (17-59); BUN Creatinine Ratio 22.6 (6-22); Bilirubin Total 0.5 mg/dL (0.2-1.3); Blood Urea Nitrogen 21 mg/dL (9-20); Calcium 8.8 mg/dL (8.4-10.2); Carbon Dioxide 24 mmol/L (22-32); Chloride 105 mmol/L (98-107); Creatine Kinase 77 U/L (55-170); Estimated Glomerular Filt Rate > 60.0 mL/min (>60); Globulin 3.1 g/dL (1.7-4.1); Glucose 112 mg/dL (80-110); HEMOLYSIS 16 (0-50); Lipase 131 U/L (23-300); Magnesium 2.2 mg/dL (1.6-2.3); Sodium 138 mmol/L (137-145); Total Protein 7.5 g/dL (6.3-8.2)
[2021-09-16 23:02] LABS: Troponin I < 0.012 ng/mL (0.01-0.034)
--- NOTE | 2021-09-16 23:03 | ED_ITS ---
HPI - General Adult General Chief complaint: Hypertension Stated complaint: TIGHT OF THE CHEST HIGH BLOOD PRESSURE Time Seen by Provider: 09/16/21 22:23 Source: patient Mode of arrival: Ambulatory History of Present Illness HPI narrative: Patient is a 71-year-old male has a history of saddle pulmonary embolism with cardiac arrest and ROSC 1 year ago, hypertrophic cardiomyopathy, on Eliquis presenting today with chest tightness. He says he is followed by [facility] for his hypertrophic cardiomyopathy he is taking a beta-teri and Eliquis that seems to be it. He has no known coronary artery disease but has had issues since his cardiac arrest 1 year ago. Today he was watching he had chest tightness in the center of his chest. It did not radiate. He denied any shortness of breath. He took his blood pressure at that time was noted to be significantly elevated and the 170s continued to rise which brought him to the ER. Related Data Home Medications Medication Instructions Recorded Confirmed cholecalciferol (vitamin D3) 25 25 mcg PO DAILY 09/23/20 03/23/21 mcg (1,000 unit) capsule multivitamin with calcium and 1 tab PO DAILY 09/23/20 03/23/21 minerals-folic acid 200 mcg tablet (One-A-Day Proactive 65 Plus) melatonin 5 mg tablet 5 mg PO PRN PRN 11/17/20 03/23/21 Previous Rx's Medication Instructions Recorded acetaminophen 325 mg capsule 650 mg PO QID PRN #60 cap 09/17/20 (Tylenol) apixaban 5 mg tablet 5 mg PO BID #180 tab 11/17/20 Allergies Allergy/AdvReac Type Severity Reaction Status Date / Time No Known Drug Allergies Allergy Verified 12/09/20 18:58 Review of Systems Review of Systems Narrative: GENERAL: Denies chills, fatigue, malaise, fever, sweats, travel HEENT: Denies sinus pain, ear pain, sore throat, difficulty swallowing, neck p ain RESPIRATORY: Denies dyspnea, cough, wheezing, hemoptysis, sputum. CARDIOVASCULAR: see HPI GASTROINTESTINAL: Denies nausea, vomiting, abdominal pain, diarrhea, constipation, melena. : Denies dysuria, frequency, incontinence, hematuria, urinary retention, flank pain. MUSCULOSKELETAL: Denies weakness, joint pain, or bony pain SKIN: No rash, no erythema, no pruritus NEUROLOGIC: Denies weakness, dizziness, headache, numbness, change in speech, confusion PSYCHIATRIC: No concerning psychosocial issues. 12 point review of systems is negative except for those stated above and HPI Patient History Medical History Acute massive pulmonary embolism BPH w urinary obs/LUTS Cardiogenic shock Chickenpox Elevated PSA (Unknown) Erectile dysfunction (Unknown) Factor 5 Leiden mutation, heterozygous History of elevated PSA Measles Surgical History History of appendectomy History of dental surgery (Unknown) Hx of hernia repair (Unknown) Family History Father Heart disease Grandfather Heart disease Grandmother Heart disease Sister Seizure disorder Family/Other Diabetes mellitus Family/Other Seizure disorder Social History marital status: household members: spouse occupational status: unemployed Smoking Status: Never smoker alcohol intake: never substance use type: does not use caffeine: No Smoking Status: Never smoker alcohol intake frequency: holidays/special occasions only Substance Use Type: does not use Exam Initial Vital Signs Initial Vital Signs: Vital Signs Pulse Rate 69 09/16/21 22:19 Pulse Oximetry 99 09/16/21 22:19 GENERAL: Alert well-appearing 71-year-old and in no acute distress. HEENT: Head atraumatic,EOMI, pupils reactive, face symmetric, moist mucous membranes CARDIOVASCULAR: Regular rate and rhythm without murmurs, rubs or gallops. RESPIRATORY: Breath sounds equal bilaterally, no wheezes rales or rhonchi. ABDOMEN: Soft, nontender. Normoactive bowel sounds all 4 quadrants. No guarding or rebound. EXTREMITIES: Normal range of motion, no clubbing or edema. Neurovascularly intact NEUROLOGICAL: Alert and oriented x4.Normal gait and speech. SKIN: Warm, dry, no laceration, no petechiae, no rashes or lesions. Scores HEART Score Heart Score history: Slightly Suspicious Heart Score EKG: Normal Heart Score Age: > or = 65 years old Heart Score risk factors: 1-2 risk factors Heart Score troponin: < or = to normal limit Heart Score Total: 3 Course Orders Ordered: ED Orders 09/16/21 22:25 Complete Blood Count AUTO DIFF Stat Comprehensive Metabolic Panel Stat Lipase Stat Magnesium Stat Troponin & CK Cardiac Panel Stat 09/16/21 22:30 XR chest 1V Stat EKG-12 Lead Stat 09/17/21 EKG-12 Lead Routine 09/17/21 00:19 Trop I [Troponin I] Stat Vital Signs Vital signs: Vital Signs - 8 hr 09/16/21 22:19 09/16/21 22:20 09/16/21 22:30 Temperature 98.7 F Pulse Rate 69 74 70 Respiratory Rate 20 Blood Pressure 234/165 H Pulse Oximetry 99 99 95 09/16/21 22:45 09/16/21 23:00 09/16/21 23:15 Temperature Pulse Rate 70 73 68 Respiratory Rate 17 22 13 Blood Pressure 190/98 H 183/97 H 182/99 H Pulse Oximetry 97 97 94 09/16/21 23:30 09/16/21 23:45 09/17/21 00:00 Temperature Pulse Rate 68 66 68 Respiratory Rate 15 14 16 Blood Pressure 180/102 H 177/103 H 174/100 H Pulse Oximetry 94 95 95 09/17/21 00:10 09/17/21 00:15 09/17/21 00:19 Temperature Pulse Rate 66 67 63 Respiratory Rate 17 15 17 Blood Pressure 191/104 H 190/91 H 172/94 H Pulse Oximetry 96 95 96 09/17/21 00:30 09/17/21 00:45 09/17/21 01:00 Temperature Pulse Rate 65 66 65 Respiratory Rate 16 16 13 Blood Pressure 161/106 H 172/103 H 172/101 H Pulse Oximetry 95 95 95 09/17/21 01:15 Temperature Pulse Rate 62 Respiratory Rate 17 Blood Pressure 172/97 H Pulse Oximetry 96 Medical Decision Making Lab Data Result diagrams: 09/16/21 22:25 09/16/21 22:25 Labs: Lab Results 09/16/21 09/16/21 09/17/21 Range/Units 22:25 22:25 00:19 WBC 6.4 (4.5-11.0) X10^3/uL RBC 5.16 (4.5-5.9) X10^6/uL Hgb 16.5 (13.5-17.5) g/dL Hct 47.6 (41-53) % MCV 92.2 (80-100) fL MCH 32.0 (26-34) PG MCHC 34.7 (30-36) % RDW 13.2 (11.6-14.8) % Plt Count 165 (150-400) X10^3/uL Neut % (Auto) 47.9 L (50-75) % Lymph % (Auto) 36.7 (25-40) % Newberry % (Auto) 8.3 (3-14) % Eos % (Auto) 6.5 H (2-4) % Baso % (Auto) 0.6 (0-2) % Neut # (Auto) 3100 (5683-8860) /uL Lymph # (Auto) 2400 (6319-3384) /uL Newberry # (Auto) 500 (0-900) /uL Eos # (Auto) 400 (0-450) /uL Baso # (Auto) 0 (0-100) /uL Sodium 138 (137-145) mmol/L Potassium 4.0 (3.4-5.1) mmol/L Chloride 105 (98-107) mmol/L Carbon Dioxide 24 (22-32) mmol/L BUN 21 H (9-20) mg/dL Creatinine 0.93 (0.66-1.25) mg/dL Estimated GFR > 60.0 (>60) mL/min BUN/Creatinine Ratio 22.6 H (6-22) Glucose 112 H (80-110) mg/dL Calcium 8.8 (8.4-10.2) mg/dL Magnesium 2.2 (1.6-2.3) mg/dL Total Bilirubin 0.5 (0.2-1.3) mg/dL AST 31 (17-59) IU/L ALT 44 (<50) IU/L Alkaline Phosphatase 43 (38-126) U/L Total Creatine Kinase 77 (55-170) U/L CK-MB (CK-2) TNP CK-MB (CK-2) Rel Index TNP Troponin I < 0.012 < 0.012 (0.01-0.034) ng/mL Total Protein 7.5 (6.3-8.2) g/dL Albumin 4.4 (3.5-5.0) g/dL Globulin 3.1 (1.7-4.1) g/dL Albumin/Globulin Ratio 1.4 (1.0-2.8) Lipase 131 (23-300) U/L Imaging Data Chest x-ray: Radiologist's Impression: PROCEDURE:? XR CHEST 1V ? INDICATIONS:? chest pain ? TECHNIQUE:? One view of the chest was acquired.? ? COMPARISON:? [facility], CR, XR CHEST 1V, 11/13/2020, 13:31. ? FINDINGS:? ? Surgical changes and devices:? None.? ? Lungs and pleura:? Lungs are clear.? No pleural effusions or pneumothorax.? ? Mediastinum:? Mediastinal contours are unchanged.? Heart size is enlarged. ? Bones and chest wall:? No suspicious bony lesions.? Overlying soft tissues appear unremarkable.? ? IMPRESSION:? ? 1.? No acute cardiopulmonary disease. ? ? Dictated by: Tariq Castro M.D. on 09/16/2021 at 23:24 ? ? ECG Data Interpretation: EKG 1. Normal sinus rhythm rate 72 GA interval 194 QRS 136 QTC 457 right bundle-branch block noted mild artifact no significant ST changes or T-wave inversions similar to previous EKG EKG 2. Sinus rhythm rate 64 similar to prior persistent right bundle-branch block MDM Narrative Medical decision making narrative: Patient blood pressure initially quite elevated with systolic in the 200s. He has no evidence of end-organ damage in blood pressure does decrease without any interventions. Chest pain has been completely resolved since he has been here his patient does not have coronary artery disease the at this time due recommended close outpatient follow-up with Cardiology and return as if chest pain returns at any time. At this time patient feels should be able to go home Discharge Plan Departure Patient Disposition: Home Clinical Impression: Hypertension, Atypical chest pain Instructions: DI for High Blood Pressure, DI for Atypical Chest Pain Activity Restrictions/Additional Instructions: *You have been diagnosed with atypical chest pain and hypertension *What to do: At this time please continue to check your blood pressure as you have been once a day and record it. Your blood pressure medication may need to be adjusted. 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 *Continue to take medications as directed *Follow up with your primary care provider in 2-3 days or call [phone] *Return to ER if you should have continued chest discomfort/tightness/pain, shortness of breath, any new, worsening or concerning symptoms Prescriptions: No Action apixaban 5 mg tablet 5 mg PO BID Qty: 180 3RF melatonin 5 mg Tablet 5 mg PO PRN PRN (Reason: Insomnia) 0RF acetaminophen [Tylenol] 325 mg capsule 650 mg PO QID PRN (Reason: pain) Qty: 60 0RF One-A-Day Proactive 65 Plus 200 mcg tablet 1 tab PO DAILY 0RF cholecalciferol (vitamin D3) 25 mcg (1,000 unit) capsule 25 mcg PO DAILY 0RF Referrals: Franky Liu MD [Primary Care Provider] - Don Herring MD [Physician] -
[2021-09-17] VITALS (8 sets, daily range): BP systolic 161–191; BP diastolic 91–106; PULSE 62–68; RESP 13–17; O2SAT 95–96
[2021-09-17 00:47] LABS: Troponin I < 0.012 ng/mL (0.01-0.034)
== END 2021-09-17 01:26 | disposition home or self-care (01) ==
PROVIDERS: Emergency Provider Emergency Medicine; PCP Student in an Organized Health Care Education/Training Program
DX: R07.89 Other chest pain (principal); I10 Essential (primary) hypertension
CPT/HCPCS: 36415; 71045; 80053; 82550; 83690; 83735; 84484; 85025; 93005; 93010; 99283; 99284

== ENCOUNTER → 2021-12-30 07:51 | Outpatient (CLI) | payer MEDICARE, OTHER, SELFPAY ==
[2020-11-10 16:25] VITALS: PULSE 126; RESP 22; O2SAT 93; BMI 31.6
--- NOTE | 2021-12-30 07:52 | DI.ECHO.S_ITS ---
[facility]---------+ [facility] +---------+ : : [address] [place] : : : : [id number] : : : : Phone: [phone] +---------+ Echocardiogram Report + + :Name: KARON TOVAR Study Date: 12/30/2021 Height: 72 in : :[facility] ReadingLocation: Weight: 220 lb : : Gender: Male BSA: 2.2 m2 : :: 1950 Age: 71 yrs BP: 119/81 mmHg: :Reason For Study: Cardiomyopathy, Hypertrophic : :Ordering Physician: TRINITY, : :ELIDIA Performed By: Shahbaz Salter : :Referring: ELIDIA HERRING : + + Interpretation Summary 1) Severely increased septal thickness at 2.5cm. 2) Normal left ventricular size, wall motion, and systolic function (EF 60- 65%). 2) Normal right ventricular size and function. 3) There is systolic anterior motion of the chordal apparatus. 4) No significant valvular stenoses or regurgitation present. 5) The aortic root is mildly dilated at 4.1cm. 6) No prior Echo available for comparison Procedure: A two-dimensional transthoracic echocardiogram with color flow and Doppler was performed. The study quality was technically adequate. There is no prior echocardiogram noted for this patient. The patient was in normal sinus rhythm during the exam. Left Ventricle: The left ventricle is normal in size. There is severe asymmetric left ventricular hypertrophy. There is no echo evidence for significant left ventricular outflow tract obstruction. Left ventricular systolic function is normal. The ejection fraction is estimated to be 60-65%. There are no focal wall motion abnormalities. Diastolic parameters suggest a relaxation abnormality of the left ventricle, consistent with probable normal filling pressures. Right Ventricle: The right ventricle is normal in size and function. Atria: Both atria are normal in size. The interatrial septum grossly appears intact with no obvious evidence for an atrial septal defect. Mitral Valve: There is systolic anterior motion of the chordal apparatus. The mitral valve is normal in structure and function. There is no mitral regurgitation noted. Aortic Valve: The aortic valve is normal in structure and function. There is no aortic valve stenosis. No aortic regurgitation is present. Tricuspid Valve: The tricuspid valve is normal in structure and function. There is a trace or physiologic amount of tricuspid regurgitation. Pulmonary artery pressures cannot be estimated because of the lack of a measurable TR jet velocity. Pulmonic Valve: The pulmonic valve is normal in structure and function. There is a trace or physiologic amount of pulmonic regurgitation. Great Vessels: The aortic root is mildly dilated. The ascending aorta is at the upper limits of normal in size. The IVC is of normal diameter and collapses greater than 50% with a sniff. This suggests a low right atrial pressure of 3 mm Hg. Pericardium/ Pleura There is no pericardial effusion. There is no pleural effusion. MMode/2D Measurements & Calculations LVIDd: 4.7 cm LVOT diam: 2.2 cm LVIDs: 2.8 cm Ao root diam: 4.1 cm FS: 41.1 % asc Aorta Diam: 3.9 cm IVSd: 2.5 cm LVPWd: 0.80 cm LV menezes. diameter/BSA (cm/m^2): 2.1 LV sys. diameter/BSA (cm/m^2): 1.2 LA A2 area: 18.4 cm2 RA long axis: 6.0 cm LA A4 area: 19.6 cm2 RA area: 12.9 cm2 LA length (vol): 5.5 cm RA vol: 23.7 ml LA vol: 55.9 ml RA : 10.7 ml/m2 LA vol index: 25.2 ml/m2 TAPSE: 2.6 cm Doppler Measurements & Calculations Ao V2 max: 138.9 cm/sec LVOT Max Albert: 118.8 cm/sec Ao V2 mean: 98.8 cm/sec LV V1 max P.6 mmHg Ao max P.7 mmHg LV V1 VTI: 25.2 cm Ao mean P.3 mmHg NATASHA(I,D): 3.7 cm2 Ao V2 VTI: 26.7 cm NATASHA(V,D): 3.4 cm2 sev ratio: 0.94 NATASHA indexed to BSA (cm^2/m^2): 1.7 MV E max albert: 47.8 cm/sec SV(LVOT): 99.3 ml MV A max albert: 80.3 cm/sec MV E/A: 0.59 Med Peak E' Albert: 3.4 cm/sec E/E' med: 13.9 Lat Peak E' Albert: 5.8 cm/sec E/E' lat: 8.3 E/e' average: 11.1 MV dec time: 0.31 sec Reading Physician:09:30 AM
== END ==
PROVIDERS: PCP Student in an Organized Health Care Education/Training Program; Referring Provider Internal Medicine Cardiovascular Disease; Visit Provider Internal Medicine Cardiovascular Disease
DX: I42.2 Other hypertrophic cardiomyopathy (principal)
CPT/HCPCS: 93306

== ENCOUNTER → 2023-01-04 13:44 | Outpatient (CLI) | payer MEDICARE, OTHER, SELFPAY ==
[2020-11-10 16:25] VITALS: PULSE 126; RESP 22; O2SAT 93; BMI 31.6
--- NOTE | 2023-01-04 | DI.ECHO.S_ITS ---
[facility] +---------+ [facility] +---------+ : : [address] [place] [place] : : : : [id number] : : : : Phone: [phone] +---------+ Echocardiogram Report + + :Name: KARON TOVAR Study Date: 01/04/2023 Height: 74 in : :[facility] ReadingLocation: Weight: 240 lb : : Gender: Male BSA: 2.3 m2 : :: 1950 Age: 72 yrs BP: 136/88 mmHg: :Reason For Study: Hypertrophic Cardiomyopathy : :Ordering Physician: TRINITY, : :ELIDIA Performed By: Yvette Peterson : :Referring: ELIDIA HERRING : + + Interpretation Summary 1) Severely increased septal thickness at 2.2cm. 2) Normal left ventricular size, wall motion, and systolic function (EF 60- 65%). 2) Normal right ventricular size and function. 3) There is systolic anterior motion of the chordal apparatus. 4) No significant valvular stenoses or regurgitation present. 5) Compared to the Echo done 12/30/2021, no significant change. Procedure: A two-dimensional transthoracic echocardiogram with color flow and Doppler was performed. The study quality was technically adequate. Comparison is made with the echocardiogram of 12/30/2021. The patient was in normal sinus rhythm during the exam. Left Ventricle: The left ventricle is normal in size. There is severe asymmetric left ventricular hypertrophy. The ejection fraction is estimated to be 60-65%. Diastolic parameters suggest a relaxation abnormality of the left ventricle, consistent with probable normal filling pressures. Right Ventricle: The right ventricle is normal size. The right ventricular systolic function is normal. Atria: The left atrial size is normal. Right atrial size is normal. There is no Doppler evidence for an interatrial shunt. Mitral Valve: The mitral valve leaflets appear borderline thickened, but open well. There is systolic anterior motion of the chordal apparatus. There is no mitral valve stenosis. There is trace mitral regurgitation. Aortic Valve: The aortic valve is trileaflet. The aortic valve opens well. There is no aortic valve stenosis. No aortic regurgitation is present. Tricuspid Valve: The tricuspid valve is normal. There is no tricuspid stenosis. There is trace tricuspid regurgitation. Pulmonary artery pressures cannot be estimated because of the lack of a measurable TR jet velocity. Pulmonic Valve: The pulmonic valve leaflets are thin and pliable; valve motion is normal. There is no pulmonic valvular stenosis. There is trace pulmonic regurgitation. Great Vessels: The aortic root is mildly dilated. The ascending aorta is at the upper limits of normal in size. The pulmonary artery is normal size. The IVC is of normal diameter and collapses greater than 50% with a sniff. This suggests a low right atrial pressure of 3 mm Hg. Pericardium/ Pleura There is no pericardial effusion. There is no pleural effusion. MMode/2D Measurements & Calculations LVIDd: 4.4 cm LVOT diam: 2.1 cm LVIDs: 3.7 cm Ao root diam: 3.8 cm FS: 15.9 % asc Aorta Diam: 3.8 cm IVSd: 2.2 cm LVPWd: 1.6 cm LV menezes. diameter/BSA (cm/m^2): 1.9 LV sys. diameter/BSA (cm/m^2): 1.6 LA A2 area: 17.8 cm2 RA long axis: 5.6 cm LA A4 area: 17.9 cm2 RA area: 13.5 cm2 LA length (vol): 6.0 cm RA vol: 27.6 ml LA vol: 44.8 ml RA : 11.7 ml/m2 LA vol index: 19.1 ml/m2 RVD1 (basal): 3.3 cm LVLs ap4: 6.3 cm LVLd ap2: 6.9 cm TAPSE_phl: 2.1 cm LVLs ap2: 6.4 cm Doppler Measurements & Calculations Ao V2 max: 127.0 cm/sec LVOT Max Albert: 108.0 cm/sec Ao V2 mean: 89.8 cm/sec LV V1 max P.7 mmHg Ao max P.0 mmHg LV V1 VTI: 24.7 cm Ao mean P.0 mmHg NATASHA(I,D): 3.0 cm2 Ao V2 VTI: 29.0 cm NATASHA(V,D): 2.9 cm2 sev ratio: 0.85 NATASHA indexed to BSA (cm^2/m^2): 1.3 MV E max albert: 53.3 cm/sec PA V2 max: 97.4 cm/sec MV A max albert: 75.6 cm/sec PA V2 mean: 68.7 cm/sec MV E/A: 0.71 PA mean P.0 mmHg Med Peak E' Albert: 4.4 cm/sec PA pr(Accel): 19.6 mmHg E/E' med: 12.3 Lat Peak E' Albert: 8.9 cm/sec E/E' lat: 6.0 E/e' average: 9.1 MV dec time: 0.32 sec SV(LVOT): 85.6 ml AV VR_phl: 0.85 NATASHA(VTI)/BSA_phl: 1.3 MV P1/2t-pr_phl: 94.0 msec Reading Physician:03:06 PM
== END ==
PROVIDERS: PCP Pediatrics; Referring Provider Internal Medicine Cardiovascular Disease; Visit Provider Internal Medicine Cardiovascular Disease
DX: I77.810 Thoracic aortic ectasia (principal); I42.2 Other hypertrophic cardiomyopathy
CPT/HCPCS: 93306

== ENCOUNTER → 2023-01-15 09:23 | Outpatient (CLI) | payer MEDICARE, OTHER, SELFPAY ==
[2020-11-10 16:25] VITALS: PULSE 126; RESP 22; O2SAT 93; BMI 31.6
[2023-01-15 10:10] LABS: Add Manual Diff / Slide Review NO; Basophils Absolute Auto 0 /uL (0-100); Basophils Percent Auto 0.7 % (0-2); Eosinophils Absolute Auto 200 /uL (0-450); Eosinophils Percent Auto 3.2 % (2-4); Hematocrit 47.9 % (41-53); Hemoglobin 16.3 g/dL (13.5-17.5); Lymphocytes Absolute Auto 1500 /uL (1100-4500); Mean Corpuscular Hemoglobin 31.6 PG (26-34); Monocytes Absolute Auto 500 /uL (0-900); Monocytes Percent Auto 7.8 % (3-14); Neutrophils Absolute Auto 3900 /uL (1500-7000); Neutrophils Percent Auto 63.3 % (50-75); Platelet Count 163 X10^3/uL (150-400); Red Blood Cell Count 5.15 X10^6/uL (4.5-5.9); Red Cell Distribution Width 13.5 % (11.6-14.8); White Blood Cell Count 6.2 X10^3/uL (4.5-11.0)
[2023-01-15 10:36] LABS: BUN Creatinine Ratio 17.6 (6-22); Blood Urea Nitrogen 18 mg/dL (9-20); Calcium 9.2 mg/dL (8.4-10.2); Carbon Dioxide 29 mmol/L (22-32); Chloride 103 mmol/L (98-107); Cholesterol 136 mg/dL (140-199); Estimated Glomerular Filt Rate > 60 mL/min (>60); Glucose 99 mg/dL (80-110); HDL Cholesterol 40 mg/dL (40-60); HEMOLYSIS 20 (0-50); LDL Cholesterol Calculated 68 mg/dL (<100); Potassium 4.8 mmol/L (3.4-5.1); Sodium 137 mmol/L (137-145); Triglycerides 139 mg/dL (35-150)
== END ==
PROVIDERS: PCP Pediatrics; Referring Provider Internal Medicine Cardiovascular Disease; Visit Provider Internal Medicine Cardiovascular Disease
DX: I10 Essential (primary) hypertension (principal); E78.5 Hyperlipidemia, unspecified
CPT/HCPCS: 36415; 80048; 80061; 85025

== ENCOUNTER → 2024-01-28 12:33 | Outpatient (CLI) | payer MEDICARE, OTHER, SELFPAY ==
[2020-11-10 16:25] VITALS: PULSE 126; RESP 22; O2SAT 93; BMI 31.6
--- NOTE | 2024-01-28 12:35 | DI.ECHO.S_ITS ---
[facility] +---------+ [facility] : : [address] : [place] : : [id number] : : Phone: [phone] Echocardiogram Report + + :Name: KARON TOVAR Study Date: 01/28/2024 Height: 74 in : :[facility] ReadingLocation: Weight: 240 lb : : Gender: Male BSA: 2.3 m2 : :: 1950 Age: 74 yrs BP: 159/93 mmHg: :Reason For Study: HYPERTROPHIC CARDIOMYOPATHY : :Ordering Physician: TRINITY, : :ELIDIA Performed By: Zane Jerome : :Referring: ELIDIA HERRING : + + Interpretation Summary 1) Severely increased septal thickness at 2.2cm. 2) Normal left ventricular size, wall motion, and systolic function (EF 60- 65%). 2) Normal right ventricular size and function. 3) There is systolic anterior motion of the chordal apparatus. 4) No significant valvular stenoses or regurgitation present. 5) The aortic root is mildly dilated at 4.3cm. 6) Compared to the Echo done , aortic root is mildly dilated on this study. Procedure: A two-dimensional transthoracic echocardiogram with color flow and Doppler was performed. The study quality was technically adequate. Comparison is made with the echocardiogram of 01/04/2023. The patient was in sinus rhythm with heart rates between 50-57 bpm during the exam. Left Ventricle: The left ventricle is normal in size. There is moderate asymmetric left ventricular hypertrophy. The ejection fraction is estimated to be 60-65%. Left ventricular systolic function appears normal without focal wall motion abnormalities. Diastolic parameters suggest a relaxation abnormality of the left ventricle, consistent with probable normal filling pressures. Right Ventricle: The right ventricle is normal size. The right ventricular systolic function is normal. Atria: The left atrial size is normal. Right atrial size is normal. The interatrial septum grossly appears intact with no obvious evidence for an atrial septal defect. Mitral Valve: There is systolic anterior motion of the chordal apparatus. There is no mitral valve stenosis. There is trace mitral regurgitation. Aortic Valve: The aortic valve is trileaflet. There is no aortic valve stenosis. No aortic regurgitation is present. Tricuspid Valve: The tricuspid valve is normal. There is no tricuspid stenosis. There is a trace or physiologic amount of tricuspid regurgitation. Pulmonic Valve: The pulmonic valve is not well visualized. There is no pulmonic valvular stenosis. There is a trace or physiologic amount of pulmonic regurgitation. Great Vessels: The aortic root is mildly dilated. The ascending aorta is at the upper limits of normal in size. The IVC is of normal diameter and collapses greater than 50% with a sniff. This suggests a low right atrial pressure of 3 mm Hg. Pericardium/ Pleura There is no pericardial effusion. There is no pleural effusion. MMode/2D Measurements & Calculations LVIDd: 4.8 cm LVOT diam: 2.3 cm LVIDs: 3.0 cm Ao root diam: 4.3 cm FS: 38.5 % asc Aorta Diam: 4.0 cm IVSd: 2.2 cm Ao Arch Diam (Prox Trans): 3.2 cm LVPWd: 0.98 cm LV menezes. diameter/BSA (cm/m^2): 2.1 LV sys. diameter/BSA (cm/m^2): 1.3 LA A2 area: 15.7 cm2 RA long axis: 4.8 cm LA A4 area: 21.9 cm2 RA area: 16.1 cm2 LA length (vol): 5.9 cm RA vol: 45.8 ml LA vol: 49.1 ml RA : 19.5 ml/m2 LA vol index: 20.9 ml/m2 RVD1 (basal): 3.6 cm RVD2 (mid): 3.3 cm TAPSE: 2.9 cm Doppler Measurements & Calculations Ao V2 max: 117.3 cm/sec LVOT Max Albert: 97.9 cm/sec Ao V2 mean: 89.3 cm/sec LV V1 max P.8 mmHg Ao max P.5 mmHg LV V1 VTI: 23.5 cm Ao mean P.4 mmHg NATASHA(I,D): 3.4 cm2 Ao V2 VTI: 28.9 cm NATASHA(V,D): 3.5 cm2 sev ratio: 0.81 NATASHA indexed to BSA (cm^2/m^2): 1.5 MV E max albert: 63.6 cm/sec PA V2 max: 95.5 cm/sec MV A max albert: 68.0 cm/sec PA V2 mean: 66.1 cm/sec MV E/A: 0.93 PA mean P.0 mmHg Med Peak E' Albert: 5.9 cm/sec PA pr(Accel): 15.6 mmHg E/E' med: 10.8 Lat Peak E' Albert: 8.8 cm/sec E/E' lat: 7.2 E/e' average: 9.0 MV dec time: 0.21 sec SV(LVOT): 99.3 ml Reading Physician:04:06 PM
== END ==
PROVIDERS: Referring Provider Internal Medicine Cardiovascular Disease; Visit Provider Internal Medicine Cardiovascular Disease
DX: I42.2 Other hypertrophic cardiomyopathy (principal); I77.810 Thoracic aortic ectasia
CPT/HCPCS: 93306

== ENCOUNTER → 2024-03-18 08:10 | Outpatient (CLI) | payer MEDICARE, OTHER, SELFPAY ==
[2020-11-10 16:25] VITALS: PULSE 126; RESP 22; O2SAT 93; BMI 31.6
[2024-03-18 09:41] LABS: Hematocrit 47.1 % (41-53); Hemoglobin 16.2 g/dL (13.5-17.5); Mean Corpuscular HGB Conc 34.4 % (30-36); Mean Corpuscular Hemoglobin 31.5 PG (26-34); Mean Corpuscular Volume 91.6 fL (80-100); Platelet Count 186 X10^3/uL (150-400); Red Blood Cell Count 5.15 X10^6/uL (4.5-5.9); White Blood Cell Count 5.9 X10^3/uL (4.5-11.0)
[2024-03-18 10:23] LABS: BUN Creatinine Ratio 20.2 (6-22); Blood Urea Nitrogen 20 mg/dL (9-20); Calcium 9.3 mg/dL (8.4-10.2); Carbon Dioxide 23 mmol/L (22-32); Chloride 104 mmol/L (98-107); Cholesterol 128 mg/dL (140-199); Estimated Glomerular Filt Rate > 60 mL/min (>60); Glucose 104 mg/dL (80-110); HDL Cholesterol 45 mg/dL (40-60); HEMOLYSIS < 15 (0-50); LDL Cholesterol Calculated 65 mg/dL (<100); Potassium 4.6 mmol/L (3.4-5.1); Sodium 136 mmol/L (137-145); Triglycerides 91 mg/dL (35-150)
== END ==
PROVIDERS: Referring Provider Internal Medicine Cardiovascular Disease; Visit Provider Internal Medicine Cardiovascular Disease
DX: E78.5 Hyperlipidemia, unspecified (principal); I10 Essential (primary) hypertension
CPT/HCPCS: 36415; 80048; 80061; 85027

== ENCOUNTER → 2025-03-24 09:09 | Outpatient (CLI) | payer MEDICARE, OTHER, SELFPAY ==
[2020-11-10 16:25] VITALS: PULSE 126; RESP 22; O2SAT 93; BMI 31.6
--- NOTE | 2025-03-24 09:11 | DI.ECHO.S_ITS ---
[facility] : : [id number] : : [place] : : [id number] : : Phone: [phone] Echocardiogram Report + + :Name: KARON TOVAR Study Date: 03/24/2025 Height: 74 in : :[facility] ReadingLocation: Weight: 240 lb : : Gender: Male BSA: 2.3 m2 : :: 1950 Age: 75 yrs BP: 144/89 mmHg: :Reason For Study: CARDIOMYOPATHY : :Ordering Physician: TRINITY, : :ELIDIA Performed By: Zane Jerome : :Referring: ELIDIA HERRING : + + Interpretation Summary 1) Severely increased septal thickness at 2.0cm. 2) Normal left ventricular size, wall motion, and systolic function (EF 55- 60%). 2) Normal right ventricular size and function. 3) There is systolic anterior motion of the chordal apparatus. 4) No significant valvular stenoses or regurgitation present. 5) The aortic root is mildly dilated at 4.3cm. 6) Compared to the Echo done 01/28/2024, no significant change. Procedure: A two-dimensional transthoracic echocardiogram with color flow and Doppler was performed. The study quality was technically good. Comparison is made with the echocardiogram of 01/28/2024. The patient was in normal sinus rhythm during the exam. Left Ventricle: The left ventricle is normal in size. There is severe asymmetric left ventricular hypertrophy. There is no ventricular septal defect visualized. The ejection fraction is estimated to be 55-60%. There are no focal wall motion abnormalities. Diastolic parameters suggest probable normal left ventricular diastolic function and normal filling pressures. Right Ventricle: The right ventricle is normal in size and function. Atria: The left atrial size is normal. Right atrial size is normal. There is no Doppler evidence for an interatrial shunt. Mitral Valve: There is systolic anterior motion of the chordal apparatus. The mitral valve leaflets appear mildly thickened. There is mild mitral regurgitation. Aortic Valve: The aortic valve is trileaflet. The aortic valve opens well. There is no aortic valve stenosis. There is no aortic regurgitation. Tricuspid Valve: The tricuspid valve leaflets are thin and pliable. There is a trace or physiologic amount of tricuspid regurgitation. Pulmonic Valve: The pulmonic valve is not well seen, but is grossly normal. There is trace pulmonic regurgitation. Great Vessels: The aortic root is mildly dilated. The ascending aorta is mildly enlarged. The pulmonary artery is normal size. The inferior vena cava was not visualized. Pericardium/ Pleura There is no pericardial effusion. MMode/2D Measurements & Calculations LVIDd: 4.8 cm LVOT diam: 2.2 cm LVIDs: 3.2 cm Ao root diam: 4.3 cm FS: 33.9 % asc Aorta Diam: 4.2 cm EPSS: 0.65 cm IVSd: 2.0 cm LVPWd: 1.2 cm LV menezes. diameter/BSA (cm/m^2): 2.0 LV sys. diameter/BSA (cm/m^2): 1.3 LA A2 area: 27.0 cm2 RA long axis: 4.5 cm LA A4 area: 21.6 cm2 RA area: 13.0 cm2 LA length (vol): 6.0 cm RA vol: 31.7 ml LA vol: 82.0 ml RA : 13.5 ml/m2 LA vol index: 34.9 ml/m2 RVD1 (basal): 3.5 cm RVD2 (mid): 2.3 cm TAPSE: 2.5 cm Doppler Measurements & Calculations Ao V2 max: 127.0 cm/sec LVOT Max Albert: 89.3 cm/sec Ao V2 mean: 98.2 cm/sec LV V1 max P.2 mmHg Ao max P.4 mmHg LV V1 VTI: 21.3 cm Ao mean P.1 mmHg ANTASHA(I,D): 2.8 cm2 Ao V2 VTI: 29.5 cm NATASHA(V,D): 2.8 cm2 sev ratio: 0.72 NATASHA indexed to BSA (cm^2/m^2): 1.2 MV E max albert: 50.8 cm/sec PA V2 max: 84.1 cm/sec MV A max albert: 65.4 cm/sec PA V2 mean: 59.1 cm/sec MV E/A: 0.78 PA mean P.5 mmHg Med Peak E' Albert: 4.3 cm/sec PA pr(Accel): 51.6 mmHg E/E' med: 11.9 Lat Peak E' Albert: 5.1 cm/sec E/E' lat: 10.0 E/e' average: 10.9 MV dec time: 0.21 sec SV(LVOT): 83.3 ml Reading Physician:12:47 PM
== END ==
PROVIDERS: PCP Family Medicine; Referring Provider Internal Medicine Cardiovascular Disease; Visit Provider Internal Medicine Cardiovascular Disease
DX: I34.0 Nonrheumatic mitral (valve) insufficiency (principal); I42.2 Other hypertrophic cardiomyopathy; I77.810 Thoracic aortic ectasia; I77.89 Other specified disorders of arteries and arterioles
CPT/HCPCS: 93306

== ENCOUNTER → 2025-03-26 11:21 | Outpatient (CLI) | payer MEDICARE, OTHER, SELFPAY ==
[2020-11-10 16:25] VITALS: PULSE 126; RESP 22; O2SAT 93; BMI 31.6
== END ==
PROVIDERS: PCP Family Medicine; Referring Provider Internal Medicine Cardiovascular Disease; Visit Provider Internal Medicine Cardiovascular Disease
DX: Z12.5 Encounter for screening for malignant neoplasm of prostate (principal); E78.5 Hyperlipidemia, unspecified; I10 Essential (primary) hypertension; Z87.898 Personal history of other specified conditions
CPT/HCPCS: 36415; G0103

== ENCOUNTER → 2025-06-15 14:26 | Outpatient (CLI) | payer MEDICARE, OTHER, SELFPAY ==
[2020-11-10 16:25] VITALS: PULSE 126; RESP 22; O2SAT 93; BMI 31.6
[2025-06-15 18:12] LABS: Prostate Specific Antigen 5.74 ng/mL (0.10-4.00)
== END ==
PROVIDERS: PCP Family Medicine; Referring Provider Family Medicine; Visit Provider Family Medicine
DX: R97.20 Elevated prostate specific antigen [PSA] (principal)
CPT/HCPCS: 36415; 84153